=== PATIENT | male | born 1985 | race Caucasian/White ===

== ENCOUNTER 2020-02-15 20:46 | Emergency (ER) | payer BC, OTHER, SELFPAY ==
[2020-02-15 20:47] VITALS: BP 145/89; PULSE 103; RESP 15; TEMP 36.7; O2SAT 98; BMI 22.7
[2020-02-15 20:53] VITALS: BP 139/93; PULSE 95; RESP 13; O2SAT 100
[2020-02-15] MEDS: 0.9% Normal Saline 1,000 ML 150 ML IV (21:05)
--- NOTE | 2020-02-15 21:12 | EKG12_ITS ---
Test Reason : CHEST TIGHTNESS Blood Pressure : / mmHG Vent. Rate : 099 BPM Atrial Rate : 099 BPM P-R Int : 164 ms QRS Dur : 092 ms QT Int : 340 ms P-R-T Axes : 075 069 054 degrees QTc Int : 436 ms Normal sinus rhythm Normal ECG Confirmed by NAHOMI WOLFE, JUNIOR ([id number]), primer expeditor and drier TORI YUN ([id number]) on 02/18/2020 11:02:47 AM Referred By: SENTHIL VELÁZQUEZ Confirmed By:JUNIOR COMER MD
--- NOTE | 2020-02-15 21:13 | ED.DCSUM_ITS ---
History of Present Illness Chief Complaint: Chest Pain Informant: Patient Onset: Today Current Severity: Mild Maximum Severity: Moderate Narrative: Patient reports chest tightness and syncope. He states for the past several days has had some abdominal pain that radiate down towards the left testicle. He been trying to drink more fluids to flush his kidneys. He was feeling better today and went on a long hike. After coming home he was sitting in visiting with a friend when he started to feel lightheaded. He felt slight chest tightness that he states felt very much on the surface of his chest. He got up to walk into the house and was in a cold sweat. He had a brief syncopal episode. He denies feeling palpitations. Currently he states he feels significantly improved but not quite back to normal. Past Medical History - Allergies and Home Meds Allergies/Adverse Reactions: Allergies No Known Allergies Allergy (Verified 02/15/20 20:53) Primary Care Physician: Saul Serna III, MD [Primary Care Provider] - Past Medical History: None Lives: Spouse/ Significant Other Smoking Status: Former smoker Review of Systems General: Denies: Chills, Fever Eyes: Denies: Visual changes - bilaterally ENT: Denies: Bilateral ear pain Cardiovascular: Reports: Chest pain. Denies: Palpitations Respiratory: Denies: Dyspnea, Cough Gastrointestinal: Reports: Abdominal pain. Denies: Nausea, Vomiting, Diarrhea Genitourinary: Denies: Dysuria Musculoskeletal: Denies: Extremity Pain Skin: Denies: Rash Neurological: Denies: Headache Hematologic: Denies: Easy bruising, Easy bleeding Allergy: Denies: Uticaria Physical Exam Vital Signs/Narrative: Vital Signs Temp Pulse Resp BP Pulse Ox 02/15/20 20:53 95 13 139/93 H 100 02/15/20 20:47 98.0 F 103 H 15 145/89 H 98 Inital Vital Signs reviewed: Yes General: Well nourished, Well developed Head: Normocephalic ENT: Moist mucous membranes Cardiovascular: Regular rate, Regular rhythm Respiratory: No distress, CTA bilaterally Abdomen: Soft, Nontender, Hypoactive bowel sounds Extremities: Nontender, No edema Skin: Normal color Neurological: Alert, Oriented x3 Psychological: Normal affect Diagnostic/Tx/Re-eval Impressions Chest X-Ray 02/15/20 21:19 IMPRESSION: Normal x-ray examination of the chest. Electronically Signed: Joy Bautista, at 21:45 EDT Tel , Service support , Abdomen/Pelvis CT 02/15/20 22:09 IMPRESSION: No acute intra-abdominal or pelvic disease. Individualized dose optimization techniques were used for this CT. at 2302 Reported and signed by: Eder Smith MD Electronically Signed: Eder Smith MD at 23:01 EDT Tel , Service support , 02/15/20 21:19 Chest 1 View (Portable) [RAD] Stat 02/15/20 22:09 Abdomen/Pelvis without Cont [CT] Stat Laboratory Results 02/15/20 02/15/20 02/15/20 21:10 21:10 21:10 WBC 9.9 RBC 5.17 Hgb 15.4 Hct 46.3 MCV 89.6 MCH 29.8 MCHC 33.3 RDW Std Deviation 39.8 RDW Coeff of Pat 12.1 Plt Count 293 MPV 10.9 Immature Gran % (Auto) 0.300 Neut % (Auto) 55.1 Lymph % (Auto) 33.4 [place] % (Auto) 9.4 Eos % (Auto) 1.1 Baso % (Auto) 0.7 Absolute Neuts (auto) 5.5 Absolute Lymphs (auto) 3.31 Nucleated RBC % 0 D-Dimer Quant (PE/DVT) <= 0.27 Sodium 140 Potassium 3.3 L Chloride 106 Carbon Dioxide 27.0 Anion Gap 7 BUN 13 Creatinine 0.96 Estim Creat Clear Calc 114.35 Est GFR (MDRD) Af Amer 115 Est GFR (MDRD) Non-Af 95 BUN/Creatinine Ratio 13.6 Glucose 149 H Calcium 9.0 Total Bilirubin 0.80 AST 10 L ALT 16 Alkaline Phosphatase 57 Troponin I < 0.015 Total Protein 7.7 Albumin 4.5 Globulin 3.2 Albumin/Globulin Ratio 1.4 Lipase 114 Urine Color Urine Clarity Urine pH Ur Specific [place] Urine Protein Urine Glucose (UA) Urine Ketones Urine Occult Blood Urine Nitrite Urine Bilirubin Urine Urobilinogen Ur Leukocyte Esterase Urine RBC Urine WBC Ur Squamous Epith Cells Urine Bacteria Urine Mucus 02/15/20 22:30 WBC RBC Hgb Hct MCV MCH MCHC RDW Std Deviation RDW Coeff of Pat Plt Count MPV Immature Gran % (Auto) Neut % (Auto) Lymph % (Auto) [place] % (Auto) Eos % (Auto) Baso % (Auto) Absolute Neuts (auto) Absolute Lymphs (auto) Nucleated RBC % D-Dimer Quant (PE/DVT) Sodium Potassium Chloride Carbon Dioxide Anion Gap BUN Creatinine Estim Creat Clear Calc Est GFR (MDRD) Af Amer Est GFR (MDRD) Non-Af BUN/Creatinine Ratio Glucose Calcium Total Bilirubin AST ALT Alkaline Phosphatase Troponin I Total Protein Albumin Globulin Albumin/Globulin Ratio Lipase Urine Color Yellow Urine Clarity Sl. Cloudy Urine pH 5.0 Ur Specific [place] 1.025 Urine Protein 15 H Urine Glucose (UA) Normal Urine Ketones 15 H Urine Occult Blood Negative Urine Nitrite Negative Urine Bilirubin Negative Urine Urobilinogen 1 H Ur Leukocyte Esterase 25 H Urine RBC 0 SEEN Urine WBC 0-5 SEEN Ur Squamous Epith Cells 0-5 SEEN Urine Bacteria 1+ Urine Mucus 1+ - EKG Initial EKG Interpretation: Sinus Rhythm - Sinus at 99 with no acute ischemia. - Medical Decision Making Patient was given IV fluids here. On repeat evaluation he is resting comfor tably. Test results are discussed with he and at bedside. Patient is reassured get frustrated that we do not have a definitive cause for his abdominal pain. I did advise him that I think his syncopal episode was vasovagal in nature as he describes feeling cold clammy and sweaty. He thinks it is secondary to having the abdominal pain. Abdominal labs, urine, and CT flank are unremarkable at this time. I advised him to continue to monitor his symptoms and follow bland diet. If his symptoms persist he is to follow-up with his family doctor late this coming week. If he develops a fever or worsening symptoms he is to return to the ER for further evaluation. ED Disposition - Plan for ED Patient: Disposition: Home or Assisted Living Diagnosis: Abdominal pain, Vasovagal syncope Instructions: ED VAGAL SYNCOPE, ED Unknown Causes of Abdominal Pain Male Referrals: Saul Serna III, MD [Primary Care Provider] - 3-5 Days if not improving
--- NOTE | 2020-02-15 21:19 | RAD_ITS ---
STUDY: X-RAY CHEST REASON FOR EXAM: Male, 34 years old. Chest evaluation TECHNIQUE: Frontal view of the chest COMPARISON: None. FINDINGS: The lungs are clear and expanded. There is no demonstrated pleural abnormality. Normal size heart. Normal mediastinum and olimpia. Normal visualized pulmonary arteries. Normal visualized aortic arch and descending thoracic aorta. Normal visualized thoracic spine. Normal visualized ribs, clavicles, and shoulders. There is no demonstrated abnormality of the visualized soft tissue structures of the upper abdomen. RAD/Chest 1 View (Portable) IMPRESSION: Normal x-ray examination of the chest. Electronically Signed: Joy Bautista, at 21:45 EDT Tel , Service support ,
[2020-02-15 21:27] LABS: Absolute Lymphocyte Count 3.31 X10^3/uL (0.83-4.51); Absolute Neutrophil Count 5.5 X10^3/uL (2.0-7.7); Basophil# 0.07 X10^3/uL; Basophil% 0.7 % (0-1); Eosinophil# 0.11 X10^3/uL; Eosinophils% 1.1 % (0-5); Hematocrit 46.3 % (40-54); Hemoglobin 15.4 g/dL (13.0-16.5); Lymphocyte # 3.31 X10^3/ul (4.0); Lymphocyte % 33.4 % (19-41); Mean Corp Hgb Conc 33.3 g/dL (32-36); Mean Corpuscular Hgb 29.8 pg (27.0-32.0); Mean Corpuscular Volume 89.6 fL (80-94); Mean Platelet Vol. 10.9 fl (6.2-12.0); Monocyte# 0.93 X10^3/uL; Monocyte% 9.4 % (0-10); NRBC Flagged by Analyzer 0 % (0-5); Neutrophil # 5.47 X10^3/uL (2.7-7.7); Neutrophil % 55.1 % (47-70); Platelet Count 293 K/mm3 (150-450); RBC Distribution Width CV 12.1 % (11.6-14.6); RBC Distribution Width SD 39.8 fl (35.1-43.9); Red Blood Count 5.17 M/mm3 (4.6-6.2); White Blood Count 9.9 K/mm3 (4.4-11.0)
[2020-02-15 21:45] LABS: D-Dimer Quantitative (DVT/PE) <= 0.27 FEU/ug/m (0.27-0.49)
[2020-02-15 21:51] LABS: ALB/GLOB Ratio 1.4 RATIO (0.9-2.4); AST(SGOT) 10 U/L (15-37); Alanine Aminotransfer ALT/SGPT 16 U/L (16-61); Albumin, Serum 4.5 g/dL (3.2-5.0); Alkaline Phosphatase 57 U/L (45-117); Anion Gap 7 (5-15); BUN 13 mg/dL (7-18); BUN/Creat Ratio 13.6 RATIO (10-20); Chloride 106 mmol/L (98-107); Creatinine, Serum 0.96 mg/dL (0.70-1.30); EST Glomerular Filtration Rate 95 mL/min (>60); Est Glom Filt Rate - Afr Amer 115 mL/min (>60); Estimated Creatinine Clearance 114.35 ml/min; Globulin 3.2 g/dL (2.2-4.2); Glucose 149 mg/dL (74-106); Lipase 114 U/L (73-393); Potassium 3.3 mmol/L (3.5-5.1); Protein, Total 7.7 g/dL (6.4-8.2); Sodium Level 140 mmol/L (136-145)
[2020-02-15 21:53] VITALS: BP 128/76; PULSE 86; RESP 16; O2SAT 99
--- NOTE | 2020-02-15 22:09 | CT_ITS ---
HISTORY: HIKED TODAY AND NOW C/O CHEST TIGHTNESS, SYNCOPE ONCE, DIAPHORESIS, LLQ ABD PAIN RADIATING TO GROIN SINCE MONDAY TECHNIQUE: Helically acquired images were obtained of the abdomen and pelvis without oral or IV contrast. A radiation dose optimization technique was used for this scan. COMPARISON: None FINDINGS: # of images incl. paperwork: [id number] LUNG BASES: Minimal pectus excavatum. Lung bases are clear. Heart is not enlarged. CT abdomen: Bones are unremarkable. The gallbladder remains. Liver, spleen, pancreas, and adrenal glands are normal. The kidneys are normal. The aorta is normal. There is no intra-or extrahepatic biliary ductal dilatation. CT pelvis: No ascites is present. The prostate gland is not enlarged but does contain some benign-appearing dystrophic calcifications. The appendix is normal. Series 2 image 119 Decompressed. The bladder is normal. Bowel gas pattern is normal. CT/Abdomen/Pelvis without Cont IMPRESSION: No acute intra-abdominal or pelvic disease. Individualized dose optimization techniques were used for this CT. at 2302 Reported and signed by: Eder Smith MD Electronically Signed: Eder Smith MD at 23:01 EDT Tel , Service support ,
[2020-02-15 22:38] LABS: Red Blood Cells-Urine 0 SEEN /hpf (0-5)
[2020-02-15 22:41] LABS: Color, Urine Yellow (Yellow); Glucose, Dipstick Normal (Normal); Ketone-Dipstick 15 mg/dl (Negative); Leukocyte Esterase-Dipstick 25 /ul (Negative); Nitrite-Dipstick Negative (Negative); Occult Blood-Urine Negative /ul (Negative); Protein-Dipstick 15 mg/dl (Negative); Specific Gravity, Urine 1.025 (1.002-1.030); Urine Bilirubin Dipstick Negative (Negative); Urine Clarity Sl. Cloudy (Clear); Urine Urobilinogen 1 mg/dl (Normal)
[2020-02-15 22:49] LABS: Bacteria 1+ /hpf (None Seen); Mucous, Urine 1+ /hpf (<or=2+); Squamous Epithelial Cells - UA 0-5 SEEN /hpf (0-5); White Blood Cells 0-5 SEEN /hpf (0-5)
[2020-02-15 22:53] VITALS: BP 116/78; PULSE 82; RESP 16; O2SAT 98
[2020-02-15 23:49] VITALS: BP 118/77; PULSE 82; RESP 16; O2SAT 100
== END 2020-02-15 23:49 | disposition home or self-care (01) ==
PROVIDERS: Emergency Provider Emergency Medicine; PCP Family Medicine
DX: R10.9 Unspecified abdominal pain (principal); R55 Syncope and collapse; R07.89 Other chest pain; Z87.891 Personal history of nicotine dependence
CPT/HCPCS: 71045; 74176; 80053; 81001; 83690; 84484; 85025; 85379; 93005; 96360; 96361; 99284; J7030; A4216

== ENCOUNTER 2023-09-30 21:51 | Emergency (ER) | payer OTHER, SELFPAY ==
[2023-09-30 21:51] VITALS: BP 134/92; PULSE 140; RESP 20; TEMP 36.8; O2SAT 100
--- NOTE | 2023-09-30 22:10 | EX.ED.DYSGE1 ---
HPI History of Present Illness Chief Complaint: Palpitations Informant: patient Onset/Context/Timing Onset: Today Narrative Narrative: Patient presents secondary to sensation of racing heart. He states he was sitting in bed talking to his when he got an alert on his watch that his heart rate was fast is been bouncing between 120 and 140. He denies chest pain. He states he did have more caffeine than normal today and he thinks that is what caused his symptoms. [facility] Medical History (Updated 09/30/23 @ 22:[address] Naa Johnston MD) ADHD Home Medications NK 02/15/20 [History Last Taken Unknown] Allergy/AdvReac Type Severity Reaction Status Date / Time No Known Allergies Allergy Verified 09/30/23 21:53 Surgical History (Updated 09/30/23 @ 22:[address] Naa Johnston MD) S/P ACL repair Social History Smoking Status: Former smoker ROS ROS ED Constitutional Constitutional ED: Denies chills or fever(s) Eyes Eyes: Denies discharge from eye(s) ENT ENT ED: Denies discharge from eye(s), rhinorrhea or sore throat Cardiovascular Cardiovascular: Reports palpitations and racing heartbeat; Denies chest pain Respiratory/Chest Respiratory/Chest: Denies cough or dyspnea Gastrointestinal Gastrointestinal: Denies abdominal pain, nausea or vomiting Musculoskeletal Musculoskeletal: Denies back pain or extremity pain Integumentary Denies Abrasions or rash Neurologic Neurologic: Denies headache(s) or weakness Psychiatric Psychiatric: Denies anxiety or depression Allergic/Immunologic Allergic/Immunologic ED: Denies lip swelling or urticaria EXAM Physical Exam Const Vital Signs: 09/30/23 21:51 Temperature 98.2 F Temperature Source Temporal Pulse Rate 140 H Respiratory Rate 20 H Blood Pressure 134/92 H Blood Pressure Mean 106 Pulse Ox 100 Oxygen Delivery Method Room Air Positive well nourished and well developed General Appearance ED: well developed HEENT Reports moist mucous membranes Eyes EOMs intact bilaterally Chest Wall inspection of chest normal and palpation of chest normal Resp normal respiratory effort and clear to auscultation bilaterally Cardio Rate: tachycardic GI non-tender Palpation: soft Extremity normal to inspection Neuro oriented x3 and no sensory deficits noted Motor Exam: strength 5/5 throughout Psych mental status grossly normal Skin no rashes or lesions noted MDM MDM MDM Narrative Medical decision making narrative: The time my exam patient is placed on equipment monitor phototypesetting. His heart rate is fluctuating between 116 and 125 during our interview. Patient states he did take his Adderall this morning along with 2 cups of coffee. He had 2 rum and Cokes at dinner tonight. He states this is more caffeine that he normally consumes in a day and he thinks that is the cause of his racing heart. At this point he states he feels better than he did when symptoms started and he really does not want further workup completed. EKG was obtained prior to my arrival and reveals sinus tachycardia with a rate of 120. No acute ischemia. Patient was advised that at this time I cannot rule out electrolyte abnormality, thyroid abnormality, other significant problems causing his tachycardia. He understands and does not wish to have further workup. He was advised that he can return at any time should he change his mind. Discharge Plan Triage Chief Complaint: Palpitations ED Provider: Naa Johnston Dx/Rx/DC Orders Clinical Impression: Tachycardia Instructions: ED Palpitations Prescriptions: No Action NK Primary Care Provider: Doug Laguerre Referrals: Doug Laguerre MD [Primary Care Provider] - 3-5 Days if not improving Disposition Disposition: Home, Self Care
--- NOTE | 2023-09-30 22:14 | EKG12_ITS ---
Test Reason : PALPITATIONS Blood Pressure : / mmHG Vent. Rate : 120 BPM Atrial Rate : 120 BPM P-R Int : 162 ms QRS Dur : 088 ms QT Int : 314 ms P-R-T Axes : 069 062 047 degrees QTc Int : 443 ms Sinus tachycardia Possible Left atrial enlargement Borderline ECG Confirmed by Braydon Jung ([id number]), editor sound TORI YUN ([id number]) on 10/03/2023 9:20:35 AM Referred By: IDA Confirmed By:Braydon Jung
[2023-09-30 22:16] VITALS: PULSE 117; RESP 16
[2023-09-30 22:18] VITALS: PULSE 111; RESP 15
--- OUTSIDE RECORDS SUMMARY | 2023-09-30 22:23 | XMS RPT_ITS | CCD ---
Author Name Unknown Address [address] [place] [address] Organization [facility] Care Team Providers Care Ranch Helper Name Role Phone Unavailable Primary Care Provider Sheba Peres MD, Doug Campo Primary Care Provider [phone] FARROW, LUTUL D Admitting Unavailable FARROW, LUTUL D Attending Unavailable PERES, DOUG Campo Primary Care Unavailable GOLIAS, MAURICE Attending Unavailable FARROW, LUTUL D Referring Unavailable PERES, DOUG Campo Primary Care Unavailable PERES, DOUG Campo Primary Care Unavailable GOLIAS, MAURICE Attending Unavailable FARROW, LUTUL D Referring Unavailable PERES, DOUG Campo Primary Care Unavailable GOLIAS, MAURICE Attending Unavailable FARROW, LUTUL D Referring Unavailable AYLA GUAMAN Attending Unavailjada PERES, DOUG Campo Primary Care Unavailable PERES, DOUG Campo Primary Care Unavailable PERES, DOUG Campo Attending Unavailable PERES, DOUG Campo Primary Care Unavailable GOLIAS, MAURICE Attending Unavailable FARROW, LUTUL D Referring Unavailable PERES, DOUG Campo Primary Care Unavailable FARROW, LUTUL D Referring Unavailable PERES, DOUG Campo Primary Care Unavailable GURU DIA Attending Unavailable PERES, DOUG Campo Primary Care Unavailable FARROW, LUTUL D Attending Unavailable PERES, DOUG Campo Primary Care Unavailable GOLIAS, MAURICE Attending Unavailable FARROW, LUTUL D Referring Unavailable GOLIAS, MAURICE Attending Unavailable FARROW, LUTUL D Referring Unavailable PERES, DOUG Campo Primary Care Unavailable PERES, DOUG Campo Primary Care Unavailable GOLIAS, MAURICE Attending Unavailable FARROW, LUTUL D Referring Unavailable PERES, DOUG Campo Primary Care Unavailable GOLIAS, MAURICE Attending Unavailable FARROW, LUTUL D Referring Unavailable PERES, DOUG Campo Attending Unavailable PERES, MURIEL Primary Care Unavailable PERES, MURIEL Primary Care Unavailable FARROW, LUTUL D Referring Unavailable FARROW, LUTUL D Attending Unavailable PERES, MURIEL Primary Care Unavailable PERES, MURIEL Attending Unavailable PERES, MURIEL Primary Care Unavailable ANGELICA KHAN Referring Unavailable PERES, MURIEL Primary Care Unavailable FARROW, LUTUL D Referring Unavailable PERES, MURIEL Primary Care Unavailable DIAN ALBA Attending Unavailable FARROW, LUTUL D Referring Unavailable FARROW, LUTUL D Referring Unavailable FARROW, LUTUL D Attending Unavailable PERES, DOUG Campo Primary Care Unavailable PERES, DOUG Campo Primary Care Unavailable RENITA GONSALES Referring Unavailable PERES, DOUG Campo Primary Care Unavailable RENITA GONSALES Attending Unavailable PERES, DOUG Campo Primary Care Unavailable FARROW, LUTUL D Referring Unavailable PERES, DOUG Campo Primary Care Unavailable MAGDALENO NICE Attending Unavailable FARROW, LUTUL D Referring Unavailable PERES, DOUG Campo Primary Care Unavailable FARROW, LUTUL D Referring Unavailable PERES, DOUG Campo Primary Care Unavailable GOLIASMAURICE Attending Unavailable FARROW, LUTUL D Referring Unavailable GOLIASMAURICE Attending Unavailable FARROW, LUTUL D Referring Unavailable PERES, DOUG Campo Primary Care Unavailable GOLIAS, MAURICE Attending Unavailable FARROW, LUTUL D Referring Unavailable PERES, DOUG Campo Primary Care Unavailable GOLIAS, MAURICE Attending Unavailable FARROW, LUTUL D Referring Unavailable PERES, DOUG Campo Primary Care Unavailable FARROW, LUTUL D Referring Unavailable PERES, DOUG Campo Primary Care Unavailable GOLIAS, MAURICE Attending Unavailable PERES, DOUG Campo Primary Care Unavailable FARROW, LUTUL D Referring Unavailable PERES, DOUG Campo Primary Care Unavailable GOLIAS, MAURICE Attending Unavailable FARROW, LUTUL D Referring Unavailable PERES, MURIEL Primary Care Unavailable GOLIAS, MAURICE Attending Unavailable FARROW, LUTUL D Referring Unavailable GOLIAS, MAURICE Attending Unavailable FARROW, LUTUL D Referring Unavailable PERES, MURIEL Primary Care Unavailable GOLIAS, MAURICE Attending Unavailable FARROW, LUTUL D Referring Unavailable PERES, MURIEL Primary Care Unavailable FARROW, LUTUL D Referring Unavailable GOLIAS, MAURICE Attending Unavailable PERES, MURIEL Primary Care Unavailable GOLIAS, MAURICE Attending Unavailable FARROW, LUTUL D Referring Unavailable PERES, MURIEL Primary Care Unavailable GOLIAS, MAURICE Attending Unavailable FARROW, LUTUL D Referring Unavailable PERES, MURIEL Primary Care Unavailable PERES, MURIEL Primary Care Unavailable GOLIAS, MAURICE Attending Unavailable FARROW, LUTUL D Referring Unavailable PERES, MURIEL Primary Care Unavailable GOLIAS, MAURICE Attending Unavailable FARROW, LUTUL D Referring Unavailable PERES, MURIEL Primary Care Unavailable GOLIAS, MAURICE Attending Unavailable FARROW, LUTUL D Referring Unavailable PERES, MURIEL Primary Care Unavailable GOLIAS, MAURICE Attending Unavailable FARROW, LUTUL D Referring Unavailable PERES, MURIEL Primary Care Unavailable GOLIAS, MAURICE Attending Unavailable FARROW, LUTUL D Referring Unavailable PERES, MURIEL Primary Care Unavailable GOLIAS, MAURICE Attending Unavailable FARROW, LUTUL D Referring Unavailable TESTRAKE, DIAN Attending Unavailable PERES, MURIEL Primary Care Unavailable TESTRAKE, DIAN Referring Unavailable PERES, MURIEL Primary Care Unavailable FARROW, LUTUL D Attending Unavailable PERES, MURIEL Primary Care Unavailable PERES, MURIEL Primary Care Unavailable FARROW, LUTUL D Referring Unavailable FARROW, LUTUL D Attending Unavailable FARROW, LUTUL D Referring Unavailable FARROW, LUTUL D Attending Unavailable PERES, MURIEL Primary Care Unavailable KRYSTA V, GURU Referring Unavailable KRYSTA V, GURU Referring Unavailable GOLIAS, MAURICE Attending Unavailable FARROW, LUTUL D Referring Unavailable PERES, MURIEL Primary Care Unavailable GOLIAS, MAURICE Attending Unavailable FARROW, LUTUL D Referring Unavailable PERES, MURIEL Primary Care Unavailable FARROW, LUTUL D Referring Unavailable GOLIAS, MAURICE Attending Unavailable PERES, MURIEL Primary Care Unavailable GOLIAS, MAURICE Attending Unavailable FARROW, LUTUL D Referring Unavailable PERES, MURIEL Primary Care Unavailable Allergies Allergy Classification Reported Allergen(s) Allergy Type Date of Onset Reaction(s) Facility (20 sources) Seasonal allergy; Translations: [SEASONAL ALLERGIES] Propensity to adverse reactions 1 Other: See Comments [facility] Work Phone: Medications Current Medications Medication Drug Class(es) Dates Sig (Normalized) Sig (Original) amphetamine aspartate 3.75 mg / amphetamine sulfate 3.75 mg / dextroamphetamine saccharate 3.75 mg / dextroamphetamine sulfate 3.75 mg oral tablet (10 sources) Central Nervous System Stimulant Start: 07-19-2023 End: 08-18-2023 take 1 tablet by mouth once daily amphetamine-dextro amphetamine (ADDERALL) 15 mg tablet Indications: ADHD (attention deficit hyperactivity disorder), combined type Take 1 tablet by mouth once daily for 30 days. 30 tablet 0 07/19/2023 08/18/2023 Active Completed/Discontinued Medications Medication Drug Class(es) Dates Sig (Normalized) Sig (Original) acetaminophen 325 mg / oxyCODONE hydrochloride 5 mg oral tablet (20 sources) Opioid Agonist Start: 12-29-2022 take 1 tablet by mouth every six hours as needed for pain oxyCODONE-acetaminop hen (PERCOCET) 5-325 mg tablet Indications: S/P ACL reconstruction Take 1 tablet by mouth every 6 hours as needed for pain (Take lowest effective dose. Do not take with alcohol or sleep aids.). 16 tablet 0 12/29/2022 Active Problems Active Problems Problem Classification Problem Date Documented Date Episodic/Chronic Acquired foot deformities (1 source) Acquired left hallux valgus; Translations: [Hallux valgus (acquired), left foot] 07-17-2023 Chronic Attention-deficit, conduct, and disruptive behavior disorders (7 sources) Attention deficit hyperactivity disorder, combined type; Translations: [Attention-deficit hyperactivity disorder, combined type] Onset: 06-21-2023 05-19-2023 Chronic Immunizations and screening for infectious disease (1 source) Needs influenza immunization; Translations: [Encounter for immunization] 05-19-2023 Episodic Miscellaneous mental health disorders (20 sources) Bruxism (teeth grinding); Translations: [Other somatoform disorders] Onset: 07-21-2015 07-21-2015 Chronic Mood disorders (1 source) Mood disorder due to a general medical condition; Translations: [Mood disorder due to known physiological condition, unspecified] 05-19-2023 Episodic Other and unspecified benign neoplasm (1 source) Neuroma; Translations: [Benign neoplasm of peripheral nerves and autonomic nervous system, unspecified] 07-17-2023 Episodic Other connective tissue disease (1 source) Pain in hallux; Translations: [Pain in right toe(s)] Episodic Other connective tissue disease (1 source) Pain of toe of left foot; Translations: [Pain in left toe(s)] 07-10-2023 Episodic Other connective tissue disease (1 source) Pain in left toe(s); Translations: [Pain in toe of left foot] Onset: 07-17-2023 Episodic Other inflammatory condition of skin (20 sources) Psoriasis; Translations: [Psoriasis, unspecified] Onset: 12-15-2022 12-15-2022 Chronic Other inflammatory condition of skin (1 source) Seborrheic psoriasis; Translations: [Other psoriasis] 06-29-2023 Chronic Other screening for suspected conditions (not mental disorders or infectious disease) (1 source) Encounter for screening for lipoid disorders; Translations: [Screening for lipid disorders] Onset: 05-19-2023 Episodic Other upper respiratory disease (20 sources) Allergic rhinitis; Translations: [Allergic rhinitis, unspecified] Onset: 01-09-2013 01-09-2013 Chronic Residual codes; unclassified (1 source) Other specified postprocedural states; Translations: [S/P ACL reconstruction] Onset: 12-29-2022 Episodic Past or Other Problems Problem Classification Problem Date Documented Da te Episodic/Chronic Other inflammatory condition of skin (20 sources) Seborrheic dermatitis; Translations: [Seborrheic dermatitis, unspecified] Onset: 02-15-2018 02-15-2018 Episodic Other non-traumatic joint disorders (20 sources) Pain in right knee; Translations: [Pain in joint, lower leg] Onset: 11-21-2022 Episodic Other non-traumatic joint disorders (1 source) Effusion, right knee; Translations: [Pain and swelling of right knee] Onset: 11-21-2022 Episodic Sprains and strains (20 sources) Rupture of anterior cruciate ligament of right knee; Translations: [Sprain of anterior cruciate ligament of right knee, initial encounter] Onset: 01-02-2023 Episodic Results Test Name Value Interpretation Reference Range Facil ity Vital Signs Date Time Vital Sign Value Performing Clinician Faci lity 06-20-2023 11:42-0400 Body weight 75.75 kg Doug Peres MD Work Phone: [facility] 06-20-2023 11:42-0400 Diastolic blood pressure 72 mm[Hg] Doug Peres MD Work Phone: [facility] 06-20-2023 11:42-0400 Heart rate 80 /min Doug Peres MD Work Phone: [facility] 06-20-2023 11:42-0400 Respiratory rate 18 /min Doug Peres MD Work Phone: [facility] 06-20-2023 11:42-0400 Systolic blood pressure 106 mm[Hg] Doug Peres MD Work Phone: [facility] 05-19-2023 08:31-0400 Body weight 76.2 kg Doug Peres MD Work Phone: [facility] 05-19-2023 08:31-0400 Diastolic blood pressure 72 mm[Hg] Doug Peres MD Work Phone: [facility] 05-19-2023 08:31-0400 Heart rate 81 /min Doug Peres MD Work Phone: [facility] 05-19-2023 08:31-0400 Respiratory rate 18 /min Doug Peres MD Work Phone: [facility] 05-19-2023 08:31-0400 SaO2% (BldA) [Mass fraction] 98 % Doug Peres MD Work Phone: [facility] 05-19-2023 08:31-0400 Systolic blood pressure 108 mm[Hg] Doug Peres MD Work Phone: [facility] 01-02-2023 08:00-0400 Diastolic blood pressure 84 mm[Hg] Maurice Golias PT Work Phone: [facility] 01-02-2023 08:00-0400 Systolic blood pressure 126 mm[Hg] Maurice Golias PT Work Phone: [facility] 01-02-2022 08:18-0400 Body temperature 96.69 [degF] Maximo Dela Cruz ICE RINK ATTENDANT.SALESPERSON [employer] Work Phone: [facility] 01-02-2022 08:18-0400 Body weight 77.38 kg Maximo Dela Cruz ICE RINK ATTENDANT.SALESPERSON [employer] Work Phone: [facility] 01-02-2022 08:18-0400 Diastolic blood pressure 72 mm[Hg] Maximo Dela Cruz ICE RINK ATTENDANT.SALESPERSON [employer] Work Phone: [facility] 01-02-2022 08:18-0400 Heart rate 79 /min Maximo Dela Cruz ICE RINK ATTENDANT.SALESPERSON [employer] Work Phone: [facility] 01-02-2022 08:18-0400 Respiratory rate 21 /min Maximo Dela Cruz ICE RINK ATTENDANT.SALESPERSON [employer] Work Phone: [facility] 01-02-2022 08:18-0400 SaO2% (BldA) [Mass fraction] 98 % Maximo Dela Cruz ICE RINK ATTENDANT.SALESPERSON [employer] Work Phone: [facility] 01-02-2022 08:18-0400 Systolic blood pressure 104 mm[Hg] Maximo Dela Cruz ICE RINK ATTENDANT.SALESPERSON [employer] Work Phone: [facility] Encounters Encounter Date Encounter Type Care Provider Facility Start: 08-11-2023 End: 08-11-2023 ambulatory DOUG PERES Facility:[facility] Start: 07-21-2023 End: 07-21-2023 ambulatory Maurice Pope PT Work Phone: [facility] Physical Therapy Procedures Date Procedure Procedure Detail Performing Clinician Start: 05-19-2023 INFLUENZA VACCINE, AGE 6 MO - 64 YR, QUADRIVALENT (AFLURIA, FLULAVAL, FLUZONE) Doug Peres MD Work Phone: Start: 05-19-2023 Lipid 1996 panel - Serum or Plasma Doug Peres MD Work Phone: Start: 09-09-2021 Adult depression screening assessment Doug Peres MD Work Phone: Start: 04-13-2016 Lipid 1996 panel - Serum or Plasma Maurice Golias PT Work Phone: History of operative procedure on knee S/P ACL reconstruction Dian Alba PA-C Work Phone: History of operative procedure on knee S/P ACL reconstruction Dian Alba PA-C Work Phone: History of operative procedure on knee S/P ACL reconstruction Jim Reed MD Work Phone: History of operative procedure on knee S/P ACL reconstruction Jim Reed MD Work Phone: History of operative procedure on knee S/P ACL reconstruction Jim Reed MD Work Phone: Plan of Treatment Date Care Activity Detail Author Start: 07-03-2030 Urine microalbumin profile [facility] Start: 05-19-2028 Lipid 1996 panel - S laney or Plasma Lipid Screening [facility] Start: 06-20-2024 Covid-19 Vaccine ( season) Covid-19 Vaccine () [facility] Immunizations Immunization Date Immunization Notes Care Provider Fa cili 05-19-2023 influenza, injectabl e, quadrivalent, contains preservative Doug Peres MD Work Phone: [facility] 07-22-2022 influenza virus vaccine, unspecified formulation Maurice Golias PT Work Phone: [facility] 07-03-2020 tetanus toxoid, redu bhanu diphtheria toxoid, and acellular pertussis vaccine, adsorbed Doug Peres MD Work Phone: [facility] 12-30-2015 hepatitis A vaccine, adult dosage Doug Peres MD Work Phone: [facility] 12-30-2015 hepatitis B immune globulin Doug Peres MD Work Phone: [facility] 12-30-2015 hepatitis B vaccine, adult dosage Maurice Golias PT Work Phone: [facility] Work Phone: 06-17-2015 hepatitis B immune globulin Doug Peres MD Work Phone: [facility] 06-17-2015 hepatitis B vaccine, adult dosage Maurice Golias PT Work Phone: [facility] Work Phone: 06-12-2015 influenza, injectabl e, quadrivalent, contains preservative Doug Peres MD Work Phone: [facility] 05-20-2015 hepatitis A vaccine, adult dosage Doug Peres MD Work Phone: [facility] 05-20-2015 hepatitis B immune globulin Doug Peres MD Work Phone: [facility] 05-20-2015 hepatitis B vaccine, adult dosage Maurice Golias PT Work Phone: [facility] Work Phone: 05-20-2015 typhoid vaccine, unspecified formulation Doug Peres MD Work Phone: [facility] 08-28-2014 influenza, seasonal, injectable Doug Peres MD Work Phone: [facility] 03-25-2009 diphtheria and tetan us toxoids, adsorbed for pediatric use Doug Peres MD Work Phone: [facility] Payers Date Payer Category Payer Unknown MMO MMO [employer] [id number] 2020-Present [phone] [address] [place] [address] PPO [id number] 2020 Unknown MMO MMO [employer] P[employer] [id number] 2020-Present [phone] [address] [place] [address] PPO [id number] 2020 Unknown [id number] Social History Date Type Detail Facility Start: 02-01-2011 End: 12-14-2022 Tobacco smoking status PRIS Never smoked tobacco [facility] Start: 02-01-2011 End: 12-14-2022 Tobacco use and exposure Smokeless tobacco non-user [facility] Start: 09-09-2021 End: 07-18-2023 Alcohol intake Current drinker of alcohol (finding) [facility] Start: 09-09-2021 End: 12-21-2022 Alcohol intake [facility] Start: 09-09-2021 End: 11-21-2022 History SDOH Alcohol Frequency 4 [facility] Start: 09-09-2021 End: 11-21-2022 History SDOH Alcohol Std Drinks 2 [facility] Start: 09-09-2021 End: 11-21-2022 History SDOH Alcohol Binge 1 [facility] Start: 09-10-2019 End: 11-21-2022 History SDOH Social Connections Meetings 3 [facility] Start: 09-10-2019 History SDOH Social Connections Living 8 [facility] Start: 09-09-2021 History SDOH Physical Activity DPW 0 [facility] Start: 09-10-2019 End: 11-21-2022 History SDOH Financial 5 [facility] Start: 09-10-2019 Education 17 [facility] Start: 1985 Sex Assigned At Male [facility] Start: 12-23-2021 End: 01-02-2022 Exposure to SARS-CoV-2 (event) Not sure [facility] Start: 11-21-2022 History SDOH Social Connections [facility] 98 [facility] Start: 12-15-2022 End: 06-29-2023 Alcohol intake Ex-drinker (finding) [facility] Start: 12-15-2022 Alcohol Comment 2-3 drinks 2-3 x / wk [facility] Start: 11-21-2022 End: 12-21-2022 Social connection and isolation panel [facility] How often do you att end episcopal or rastafarian services? Patient refused [facility] Do you belong to any clubs or organizations such as episcopal groups, unions, fraternal or athletic groups, or school groups? Yes [facility] Are you now , , , , never or living with a partner? [facility] How often to you hav e a drink containing alcohol? 2-3 time sa week [facility] How many standard dr inks containing alcohol do you have on a typical day? 1 or 2 [facility] How often do you hav e 6 or more drinks on 1 occasion? Never [facility] Do you feel stress - tense, restless, nervous, or anxious, or unable to sleep at night because your mind is troubled all the time - these days [OSQ] Only a little [facility] (I/We) worried wheth er (my/our) food would run out before (I/we) got money to buy more. Never true [facility] In the past 12 month s, was there a time when you were not able to pay the mortgage or rent on time? No [facility] Start: 09-03-2019 Gender identity Identifies as male gender (finding) [facility] Start: 09-03-2019 Sexual orientation Heterosexual (finding) [facility] How many standard dr inks containing alcohol do you have on a typical day? 3 or 4 [facility] Work Phone: Medical Equipment Procedure Code Equipment Code Equipment Origin al Text Equipment Identifier Dates Ultrabutton Adjustable Fixation Device [id number] Start: 12-29-2022 Intrafix Screw Biocryl [id number] Start: 12-29-2022 Clinical Notes 09-26-2016 to 08-11-2023 Maurice Pope, PT - 07/21/2023 4:23 PM Stacy Theodore LPN - 07/17/2023 9:51 AM Dian Pinon - 07/17/2023 9:37 AM Minerva Keita RN - 07/17/2023 9:24 AM ESTPatient Instructions Note Date & Type Note Facility 08-11-2023 Note HNO ID: [id number] Author: Doug Peres MD Service: ? Author Type: Physician Type: Progress Notes Filed: 08/11/2023 12:54 PM Note Text: This note was created using [employer]. Subjective Terry Smith is a 37 year old male. He was doing better on this current stimulant therapy, and he felt the balance of efficacy versus side effect was good now. We agreed to maintain this dose. Review of Systems Constitutional: Negative. Psychiatric/Behavioral: Negative. ACTIVE PROBLEM LIST Allergic Rhinitis Bruxism Psoriasis Rupture of Anterior Cruciate Ligament of Right Knee Adhd (Attention Deficit Hyperactivity Disorder), Combined Type PAST SURGICAL HISTORY Procedure Laterality Date KNEE ARTHROSCOPY/SURGERY Right 12/29/2022 ACL reconstruction with quintuple stranded hamstring autograft; partial lateral meniscectomy PAST SURGICAL HISTORY OF 2003 Extraction of wisdom teeth PAST SURGICAL HISTORY OF 2011 Right maxillary sinus sx Social History Tobacco Use Smoking status: Never Smokeless tobacco: Never Vaping Use Vaping Use: Never used Substance Use Topics Alcohol use: Yes Comment: 2-3 drinks 2-3 x / wk Drug use: Never Current Outpatient Medications Medication Sig calcipotriene (DOVONEX) 0.005 % cream Apply to affected area two times a day. betamethasone valerate 0.1 % cream Apply to affected area two times a day as needed (for psoriasis in the groin and ears). betamethasone dipropionate (DIPROSONE) 0.05 % cream Apply to affected area two times a day as needed (for psoriasis on the body and feet.). MULTIVITAMIN ORAL Take by mouth. [START ON 10/17/2023] amphetamine-dextroamphetamine (ADDERALL) 15 mg tablet Take 1 tablet by mouth once daily for 30 days. Do not start before October 17, 2023. [START ON 09/17/2023] amphetamine-dextroamphetamine (ADDERALL) 15 mg tablet Take 1 tablet by mouth once daily for 30 days. Do not start before September 17, 2023. [START ON 08/18/2023] amphetamine-dextroamphetamine (ADDERALL) 15 mg tablet Take 1 tablet by mouth once daily for 30 days. Do not start before August 18, 2023. No current facility-administered medications for this visit. Objective BP 106/60 Pulse 78 Temp 36.6 ?C (97.9 ?F) Resp 16 Wt 74.2 kg (163 lb 8 oz) SpO2 98% BMI 21.53 kg/m? Physical Exam Constitutional: Appearance: Normal appearance. Neurological: Mental Status: He is alert. Psychiatric: Mood and Affect: Mood normal. Behavior: Behavior normal. Thought Content: Thought content normal. Adult ADD 08/11/2023 Trouble wrapping up final details of projects 2 - Sometimes Difficulty getting order on tasks requiring organization 2 - Sometimes Have problems remembering appts/obligations 1 - Rarely Avoid/delay tasks requiring a lot of thought 3 - Often Fidget/squirm when sitting a long time 1 - Rarely Feel overly active/compelled to do things 2 - Sometimes Part A - Total 10 Careless Mistakes on boring/difficult projects 1 - Rarely Difficult keeping attention on boring/repetitive work 2 - Sometimes Difficulty concentrating on what people say 3 - Often Misplace/difficulty finding things at home/work 2 - Sometimes Distracted by activity/noise 3 - Often Leave your seat when expected to remain seated 0 - Never Feel restless/fidgety 1 - Rarely Difficulty unwinding/relaxing when you have time 2 - Sometimes Talk too much in social situations 2 - Sometimes Finish other's sentences 0 - Never Difficulty waiting your turn 1 - Rarely Interrupt others when they are busy 2 - Sometimes Part B - Total 19 Assessment and Plan 1. ADHD (attention deficit hyperactivity disorder), combined type - ICD9: 314.01, ICD10: F90.2 Controlled. Continue medication. Call for refill in 3 months. Follow up in 6 months. - DEXTROAMPHETAMINE-AMPHETAMINE 15 MG TABLET - DEXTROAMPHETAMINE-AMPHETAMINE 15 MG TABLET - DEXTROAMPHETAMINE-AMPHETAMINE 15 MG TABLET Doug Peres MD [facility] 07-21-2023 Note HNO ID: [id number] Author: Maurice Pope PT Service: ? Author Type: Physical Therapist Type: Progress Notes Filed: 07/21/2023 4:26 PM Note Text: Episode Visit Count: 34 Therapist That Will Accept/Oversee The Plan Of Care: Maurice Pope Start of Care Date: 01/02/23 Onset Date: 11/04/22 Plan of Care Certification Date: 12/16/22 Patient Identified by Name and Date of : Yes REHABILITATION AND SPORTS THERAPY PHYSICAL THERAPY PROGRESS REPORT PLAN OF CARE UPDATE: Assessment: Terry Smith demonstrates significant improvement in walking, stair negotiation, heavy exertion, running, jumping, and squatting . He has progressed toward goals. Patient continues to present with impairments in balance, coordination, overall function, strength, and running/ultimate frisbee that interfere with recreational activities, physical activities, running, jumping, squatting. Current prognosis is Excellent due to: current objective clinical presentation, good overall health status, positive past response to therapy, within-session changes, good support system/ coping skills. He will benefit from continued skilled therapy services to meet the updated goals for this plan of care as noted below. Updated: 6/7/23 and 02/23/23 and 03/21/23 and 04/21/23 and 05/19/23 and 06/16/23 and 07/21/23 Goals for Episode of Care: created on 01/02/23 through 04/24/23 Phase 1 to Phase 2 Criteria: Criterion for Progression: Complete 20 straight leg raises with no quadriceps lag. - MET Range of motion Full active knee extension (within 3 degrees) Active Flexion to 110 degrees. - MET Full quadriceps activation: full, without visual inhibition. - MET Normalized Gait. - MET Discontinuation of Crutch/Immobilizer devices. - Partially MET Phase 2 to Phase 3 Criteria: Criterion for Progression: Range of motion: full, equal to contralateral. - MET Stairs: 10-12 steps, ascent/descent in a reciprocal pattern with (6-8 height). - MET Double leg squat: 60-90 degree bend, equal weight bearing, proper mechanics. - MET Demonstrates functional strength and control with performing daily activities. - MET Phase 3 to Phase 4 Criteria: Criterion for Progression: Range of Motion: maintained full and equal to contralateral limb - MET Strength symmetry testin% symmetry using any of the following methods: Dynamometer testing - MET Motor control: 6 inch eccentric step-downs with heel tap, 20 reps, proper Mechanics. - MET Hopping in place: double leg and single leg, no pain, proper mechanics. - Partially MET, will continue Outcomes: IKDC greater than or equal to 7, ADL-RSI greater than or equal to 50-60 score. - MET Phase 4 to Phase 5 Criteria: Criterion for Progression: Maximum vertical jump without pain or instability. - Partially MET, will continue 80% of contralateral on single hop tests. - Partially MET, will continue (currently 78,71 and 89%) Normalized running. - Partially MET, will continue Y-balance - anterior reach: less than 4 cm asymmetry. - MET Strength: 85% symmetry. - Partially MET, will continue IKDC Question (Global Rating of Knee Function) score of 8 or greater. - MET Phase 5 to Return to Sport Criteria: Criterion for Progression: Strength: Greater than or equal to 90% symmetry. Hop testin% symmetry with proper mechanics. Pain free transition to activities and no functional complaints. Confidence when running, cutting, jumping at full speed. IKDC Question (Global Rating of Knee Function) of > 9. Patient Goals: regain prior functional status and play ultimate frisbee Patient Goals: regain prior functional status and play ultimate frisbee Planned Interventions, Frequency, and Duration: 1x every other week, 4 weeks Total Number of Visits Planned: 2 Patient to be seen for Therapeutic exercise (77986), Neuromuscular re-education (32662), Therapeutic activities (01969), Self-penitentiary management (89457), Gait Training (41603), Patient/Family/Caregiver Education, Body Mechanics Training, General Conditioning PLAN FOR NEXT VISIT: Phase 4 Negrete protocol. Progress to tolerance. Classification ACL-RSI Raw Score: 960 ACL-RSI Final Score %: 80 IKDC #10: 9 SUBJECTIVE: Pt reports that overall he is doing very well with continued slow but progressive improvements overall. He rates his overall recovery at 75%. He reports that at his follow up with referring provider on 07/18/23 he was fully released to resume prior functional activities, including ultimate frisbee. Pt reports that he does not have a follow up scheduled with Dr. Reed in the future. The patient's biggest concern is that he has returned to his prior functional level for running. He reports that he has done only minimal running since surgery and is not confident about his ability to do this. He agrees that he is where he should be but not where he wants to be. For that reason, he would like to continue supervised PT for (more content not included)... [facility] 07-21-2023 History of Presen t illness Narrative Episode Visit Count: 34 Therapist That Will Accept/Oversee The Plan Of Care: Maurice Pope Start of Care Date: 01/02/23 Onset Date: 11/04/22 Plan of Care Certification Date: 12/16/22 Patient Identified by Name and Date of : Yes REHABILITATION AND SPORTS THERAPY PHYSICAL THERAPY PROGRESS REPORT PLAN OF CARE UPDATE: Assessment: Terry Smith demonstrates significant improvement in walking, stair negotiation, heavy exertion, running, jumping, and squatting . He has progressed toward goals. Patient continues to present with impairments in balance, coordination, overall function, strength, and running/ultimate frisbee that interfere with recreational activities, physical activities, running, jumping, squatting. Current prognosis is Excellent due to: current objective clinical presentation, good overall health status, positive past response to therapy, within-session changes, good support system/ coping skills. He will benefit from continued skilled therapy services to meet the updated goals for this plan of care as noted below. Updated: 01/25/23 and 02/23/23 and 03/21/23 and 04/21/23 and 05/19/23 and 06/16/23 and 07/21/23 Goals for Episode of Care: created on 01/02/23 through 04/24/23 Phase 1 to Phase 2 Criteria: Criterion for Progression: Complete 20 straight leg raises with no quadriceps lag. - MET Range of motion Full active knee extension (within 3 degrees) Active Flexion to 110 degrees. - MET Full quadriceps activation: full, without visual inhibition. - MET Normalized Gait. - MET Discontinuation of Crutch/Immobilizer devices. - Partially MET Phase 2 to Phase 3 Criteria: Criterion for Progression: Range of motion: full, equal to contralateral. - MET Stairs: 10-12 steps, ascent/descent in a reciprocal pattern with (6-8 height). - MET Double leg squat: 60-90 degree bend, equal weight bearing, proper mechanics. - MET Demonstrates functional strength and control with performing daily activities. - MET Phase 3 to Phase 4 Criteria: Criterion for Progression: Range of Motion: maintained full and equal to contralateral limb - MET Strength symmetry testin% symmetry using any of the following methods: Dynamometer testing - MET Motor control: 6 inch eccentric step-downs with heel tap, 20 reps, proper Mechanics. - MET Hopping in place: double leg and single leg, no pain, proper mechanics. - Partially MET, will continue Outcomes: IKDC greater than or equal to 7, ADL-RSI greater than or equal to 50-60 score. - MET Phase 4 to Phase 5 Criteria: Criterion for Progression: Maximum vertical jump without pain or instability. - Partially MET, will continue 80% of contralateral on single hop tests. - Partially MET, will continue (currently 78,71 and 89%) Normalized running. - Partially MET, will continue Y-balance - anterior reach: less than 4 cm asymmetry. - MET Strength: 85% symmetry. - Partially MET, will continue IKDC Question (Global Rating of Knee Function) score of 8 or greater. - MET Phase 5 to Return to Sport Criteria: Criterion for Progression: Strength: Greater than or equal to 90% symmetry. Hop testin% symmetry with proper mechanics. Pain free transition to activities and no functional complaints. Confidence when running, cutting, jumping at full speed. IKDC Question (Global Rating of Knee Function) of > 9. Patient Goals: regain prior functional status and play ultimate frisbee Patient Goals: regain prior functional status and play ultimate frisbee Planned Interventions, Frequency, and Duration: 1x every other week, 4 weeks Total Number of Visits Planned: 2 Patient to be seen for Therapeutic exercise ([id number]), Neuromuscular re-education (53888), Therapeutic activities (43555), Self-penitentiary management ([id number]), Gait Training ([id number]), Patient/Family/Caregiver Education, Body Mechanics Training, General Conditioning PLAN FOR NEXT VISIT: Phase 4 Negrete protocol. Progress to tolerance. Classification ACL-RSI Raw Score: 960 ACL-RSI Final Score %: 80 IKDC #10: 9 SUBJECTIVE: Pt reports that overall he is doing very well with continued slow but progressive improvements overall. He rates his overall recovery at 75%. He reports that at his follow up with referring provider on 07/18/23 he was fully released to resume prior functional activities, including ultimate frisbee. Pt reports that he does not have a follow up scheduled with Dr. Reed in the future. The patient's biggest concern is that he has returned to his prior functional level for running. He reports that he has done only minimal running since surgery and is not confident about his ability to do this. He agrees that he is where he should be but not where he wants to be. For that reason, he would like to continue supervised PT for the rest of the year (2 visits). Patient Goals: regain prior functional status and play ultimate frisbee Functional Limitations: recreational activities, physical activities, running, jumping, squatting Prior Level of Function: Independent without limitations Pain: Pain Pain Level: 0 Pain Location: Knee - Right Description: (no pain to start today) Frequency: Intermittent Post Treatment Pain Post Treatment Pain Level: No Change Post Treatment Pain Location: Knee - Right Post Treatment Symptoms: Pt reports fatigue from a good workout but he denies any increase in pain. PROMIS Scales Higher is Better 07/21/2023 07/16/2023 06/14/2023 Phys Func - Score - 52 (within normal limits) 51 (within normal limits) Phys Func - Percentile - 58 % 54 % Self-Eff Symptom - Score 56 (Average) - 51 (Average) Self-Eff Symptom - Percentile 73 % - 54 % T-scores: mean of general population = 50. 5 points is clinically meaningfully difference Percentiles provide an indication of how the patient's score ranks in relation to the general population. Higher percentile rankings indicate better function/quality of life. 50th percentile is the average of the general population and indicates half of respondents had a worse score. OBJECTIVE MEASURES WITH LEVEL OF FUNCTION: Knee Observations R Circumference 6 inches above mid-patella (inches): 16.25 inches R Circumference mid patella (inches): 14.5 inches R Circumference 6 inches below mid-patella (inches): 13.75 inches L Circumference 6 inches above mid-patella (inches): 17.5 inches L Circumference mid patella (inches): 14.5 inches L Circumference 6 inches below mid-patella (inches): 14 inches LE AROM R LE AROM: supine R Knee Extension: 1 Degrees R Knee Flexion: 142 Degrees L Knee Extension: 1 Degrees L Knee Flexion: 150 Degrees Dynamometer Strength Right Quadriceps Strength (lbs): 86.3 Left Quadriceps Strength (lbs): 90 Quad Strength Limb Symmetry Index (%): 95.89 Right Hamstring Strength (lbs): 42 Left Hamstring Strength (lbs): 51.3 Hamstring Strength Limb Symmetry Index(%): 81.87 Right Hip Abduction Strength (lbs): 64.8 Left Hip Abduction Strength (lbs): 63.4 Functional Strength R SL Press Weight : 120 R SL Press Reps : 4 R SL Press 1 RM (calc): 135.98 L SL Press Weight : 130 L SL Press Reps : 4 L SL Press 1 RM (calc): 147.32 Gait Gait Observation: normal Hop - Crossover for Distance R Crossover hop for distance (cm) Trial 1: 200 cm R Crossover hop for distance (cm) Trial 2: 200 cm R Crossover hop for distance (cm) Trial 3: 200 cm R Crossover hop for distance average: 200 L Crossover hop for distance (cm) Trial 1: 256 cm L Crossover hop for distance (cm) Trial 2: 256 cm L Crossover hop for distance (cm) Trial 3: 256 cm L Crossover hop for distance average: 256 Distance Ratio: 78.13 Hop - Single Leg Hop for Distance R Single Leg Hop for Distance (cm) Trial 1: 61 cm R Single Leg Hop for Distance (cm) Trial 2: 61 cm R Single Leg Hop for Distance (cm) Trial 3: 61 cm R Single-Leg Hop for Distance Average: 61 L Single Leg Hop for Distance (cm) Trial 1: 86 cm L Single Leg Hop for Distance (cm) Trial 2: 86 cm L Single Leg Hop for Distance (cm) Trial 3: 86 cm L Single-Leg Hop for Distance Average: 86 Distance Ratio: 70.93 Hop - Single-Leg Triple Hop for Distance R Single-Leg Triple Hop for Distance (cm) Trial 1: 240 cm R Single-Leg Triple Hop for Distance (cm) Trial 2: 240 cm R Single-Leg Triple Hop for Distance (cm) Trial 3: 240 cm R Single-Leg Triple Hop for Distance Average : 240 L Single-Leg Triple Hop for Distance (cm) Trial 1: 269 cm L Single-Leg Triple Hop for Distance (cm) Trial 2: 269 cm L Single-Leg Triple Hop for Distance (cm) Trial 3: 269 cm L Single-Leg Triple Hop for Distance Average: 269 Distance Ratio: 89.22 TREATMENT: [facility]: ACL ACL Phase: Phase 4: Advanced Training Phase Therapeutic Exercise: 1: Upright bike seat #7 level #8 x5 minutes. (Pt provided an update on his condition and plan of care reviewed. Subjective status of goals assessed.) 2: TM runnin minute at 3mph, then 3 minutes at 5.5mph and then 1 minute at 3mph (His quality of gait on treadmill with running is smooth and appropriate with no assymmetries.) 4: 1RM determined on leg press B 5: R HS curl machine 80# 3x15 9: R SLS ball toss to rebounder 3x15 10: Re-assessment completed and results shared with patient in detail. These results were used to justify plan of care recommendations. All of his questions were answered 11: HEP reviewed and continuation encouraged to tolerance based on findings of detailed re-assessment. Skilled Intervention: Patient was educated in proper exercise technique and purpose for exercises. Skilled judgment was used in selection of appropriate interventions. Correct performance of therapeutic exercises was facilitated with verbal and visual cuing. Gait Trainin: running assessed on treadmill x5 minutes with cues Skilled Intervention: Facilitated proper gait cycle with the use of verbal cues for correction of gait deviations identified in the objective section above. Billing Therapeutic Exercise Treatment Minutes: 55 Gait Training Treatment Minutes: 5 Skilled Treatment Time Minutes (timed and untimed codes): 60 Total Session Time (minutes): 60 Session Start Time : 1400 Session Stop Time : 1500 Maurice Pope PT documented in this encounter [facility] 07-18-2023 Note HNO ID: [id number] Author: Jim Reed MD Service: ? Author Type: Physician Type: Progress Notes Filed: 07/18/2023 12:15 PM Note Text: DATE OF PROCEDURE: December 29, 2022 OPERATION: 1. Right knee arthroscopically-assisted anterior cruciate ligament reconstruction with quintuple stranded hamstring autograft 2. Diagnostic arthroscopy. 3. Examination under anesthesia. 4. Right knee partial lateral meniscectomy REF: Dr. Ahn Interval history: Terry Smith returns today status post right knee surgery. Chief complaint is resolved right knee pain. Doing well . Review of Systems: CV: No chest pain Pulm: No short of breath HEENT: No head ache General: no fevers, chills, nausea/vomiting, malaise Physical Examination: This is a well appearing, well nourished patient in no acute distress. Head is normocephalic and atraumatic. White sclera and pink conjunctiva. Mucous membranes are moist. Breathes easily and has normal chest wall excursion. Affect is normal. right knee: negative gian's Range of motion: Flexion is lacking 2 fingerbreadths, extension is full . Effusion: trace. Incisions: well-healing . No infection. Imaging: none Impression: Terry Smith is a 37 year old male, who is approaching 6 months status post right knee ACLR and partial lateral meniscectomy. Doing fine . Plan: Can follow-up as needed, no further appointments needed at this time By signing my name below, I, Nadia Riley, attest that this documentation has been prepared under the direction and in the presence of Dr. Reed Electronically signed, Nadia Riley, Medical Student/Scribe July 18, 2023 12:02 PM I agree with the Chief Complaint, ROS, and Past Histories independently gathered by the clinical administrative support coordinator and the remaining scribed note accurately describes my personal service to the patient. Jim Reed MD . [facility] 07-17-2023 Note HNO ID: [id number] Author: Stacy Young LPN Service: ? Author Type: LICENSED NURSE Type: Progress Notes Filed: 07/17/2023 9:54 AM Note Text: Per Dr. Velasquez, Terry was provided with powerstep gel inserts, size 11, and instructed/educated in its application, wear, and care. All questions were answered, and patient was able to demonstrate competence with the necessary skills to utilize the above equipment. Stacy Young LPN [facility] 07-17-2023 Note HNO ID: [id number] Author: Dian Velasquez Service: ? Author Type: Physician Type: Progress Notes Filed: 07/17/2023 9:54 AM Note Text: Initial Podiatric Office Visit: Chief Complaint: This 37 year old male who presents with chief complaint:left great toe pain. Patient also complains of pain in the ball of right foot HPI Patient presents to clinic for evaluation of left great toe. He has pain that is on/off for several years. He states some time he feels a grinding sensation to the left great toe. He feels this started from injury several years ago. He has pain that is on/off. When pain is present, he will notice pain with pushoff of the great toe. Patient does not really do anything for the pain. At times, he will take naproxen. Patient does report pain in the ball of right foot. Patient states the pain in the ball of right foot is more recent and has been on/off for one year Does have recent acl reconstruction. PAIN EVALUATION No data found in the last 1 encounters. 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 calcipotriene (DOVONEX) 0.005 % cream Apply to affected area two times a day. betamethasone valerate 0.1 % cream Apply to affected area two times a day as needed (for psoriasis in the groin and ears). betamethasone dipropionate (DIPROSONE) 0.05 % cream Apply to affected area two times a day as needed (for psoriasis on the body and feet.). MULTIVITAMIN ORAL Take by mouth. No current facility-administered medications for this visit. ALLERGIES Allergen Reactions Seasonal Allergies Other: See Comments Sinus issues PAST SURGICAL HISTORY Procedure Laterality Date PAST SURGICAL HISTORY OF 2003 Extraction of wisdom teeth PAST SURGICAL HISTORY OF 2011 Right maxillary sinus sx FAMILY HISTORY Problem Relation Age of Onset other (MS [Other]) Mother 54 Heart Father 57 No Known Problems Sister No Known Problems Brother No Known Problems Brother No Known Problems Brother Diabetes Maternal Grandfather Anesthesia Problems No Family History Blood Clots No Family History Clotting Disorder No Family History Social History Tobacco Use Smoking status: Never Smokeless tobacco: Never Vaping Use Vaping Use: Never used Substance Use Topics Alcohol use: Yes Comment: 2-3 drinks 2-3 x / wk Drug use: Never REVIEW OF SYSTEMS GENERAL: Negative for Malaise, significant weight loss, fever RESPIRATORY: Negative for cough, wheezing and shortness of breath CARDIOVASCULAR: Negative for chest pain, leg swelling and palpitations GI: Negative for abdominal discomfort, blood in stools or black stools and change in bowel habits : Negative for dysuria, frequency and incontinence MUSCULOSKELETAL: Negative for joint pain or swelling, back pain, and muscle pain. SKIN: Negative for lesions, rash, and itching. HEMATOLOGY/LYMPHOLOGY Negative for prolonged bleeding, bruising easily, and swollen nodes. ENDOCRINE: Negative for cold or heat intolerance, polyuria, polydipsia and goiter. NEURO: negative Physical Exam: Constitutional: Pt is a well developed 37 year old male who is alert, oriented and cooperative Eyes: Following during examination. No redness or drainage. Respiratory: RR normal and nonlabored. Even breathing. No evidence of distress or shortness of breath. Psychology: Patient is engaged during conversation. Normal affect and mood. Does not appear depressed or anxious during encounter. Vascular: Dorsalis pedis and posterior tibial pulses palpable as b/l Capillary Fill time < 5 seconds to digits 1-5 b/l Skin temperature warm to warm proximal to distal b/l Hair growth present to digits Neurological: intact light touch/epicritic sensation b/l intact protective sensation no significant neurological deficits Dermatological: Nails 1-5 b/l appear normal. Webspaces clean and dry 1-4 b/l. Skin appears well hydrated and supple. good color, texture, turgor. No open lesions present. No callosities present. Musculoskeletal/Orthopaedic: Patient has pain to palpation of left medial 1st metatarsal. Some pain with dorsiflexion of left 1st mtpj Pain present to right 2nd interspace Foot type is slightly pronated structurally Hypermobile first ray b/l. AJ ROM is full with knee extended and flexed 1st MPJ is full when loaded and no pain or crepitus are noted with ROM. MTJ, STJ are full and (more content not included)... [facility] 07-17-2023 Note HNO ID: [id number] Author: Minerva Hope, JAMES Service: ? Author Type: Registered Nurse Type: Progress Notes Filed: 07/17/2023 9:54 AM Note Text: Patient presents with: Left Great Toe - New, Pain Right Foot - New, Pain Patient presents for Left big toe pain and right center ball of foot pain. States that it has gotten better since he made the appointment, but still painful. Initially the pain would keep him up at night. No recent injury, thinks he broke left foot like 20 years ago and never got it looked at. [facility] 07-17-2023 Note HNO ID: [id number] Author: Daina Peña RT(R) Service: ? Author Type: Technologist Type: Progress Notes Filed: 07/17/2023 10:02 AM Note Text: Radiology Service Progress Note PATIENT NAME: Terry Smith DATE OF SERVICE: July 17, 2023 TIME: 10:02 AM PATIENT IDENTITY VERIFICATION COMPLETED USING TWO (2) IDENTIFIERS: Name and Date of confirmed by patient verbally. FALL SCREENING: Has the patient had 2 falls in the last year or 1 fall with injury or currently using an Ambulatory Assistive Device (Walker, Cane, Wheelchair, Crutches, etc.)? No PATIENT GENDER DATA: Male PATIENT RELEVANT IMPLANT DATA REVIEWED: Not Applicable RADIOLOGY DEPARTMENT: General X-ray: Exam(s) Completed: Lower Extremity X-Ray(s): Foot, Left and Wt. Bearing PERIPHERAL IV DATA: Not applicable SIGNED BY: Daina Peña RT(R) July 17, 2023 10:02 AM [facility] 07-17-2023 History of Presen t illness Narrative Per Dr. Velasquez, Terry was provided with powerstep gel inserts, size 11, and instructed/educated in its application, wear, and care. All questions were answered, and patient was able to demonstrate competence with the necessary skills to utilize the above equipment. Stacy Young LPN Initial Podiatric Office Visit: Chief Complaint: This 37 year old male who presents with chief complaint:left great toe pain. Patient also complains of pain in the ball of right foot HPI Patient presents to clinic for evaluation of left great toe. He has pain that is on/off for several years. He states some time he feels a grinding sensation to the left great toe. He feels this started from injury several years ago. He has pain that is on/off. When pain is present, he will notice pain with pushoff of the great toe. Patient does not really do anything for the pain. At times, he will take naproxen. Patient does report pain in the ball of right foot. Patient states the pain in the ball of right foot is more recent and has been on/off for one year Does have recent acl reconstruction. PAIN EVALUATION No data found in the last 1 encounters. 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 calcipotriene (DOVONEX) 0.005 % cream Apply to affected area two times a day. betamethasone valerate 0.1 % cream Apply to affected area two times a day as needed (for psoriasis in the groin and ears). betamethasone dipropionate (DIPROSONE) 0.05 % cream Apply to affected area two times a day as needed (for psoriasis on the body and feet.). MULTIVITAMIN ORAL Take by mouth. No current facility-administered medications for this visit. ALLERGIES Allergen Reactions Seasonal Allergies Other: See Comments Sinus issues PAST SURGICAL HISTORY Procedure Laterality Date PAST SURGICAL HISTORY OF 2003 Extraction of wisdom teeth PAST SURGICAL HISTORY OF 2011 Right maxillary sinus sx FAMILY HISTORY Problem Relation Age of Onset other (MS [Other]) Mother 54 Heart Father 57 No Known Problems Sister No Known Problems Brother No Known Problems Brother No Known Problems Brother Diabetes Maternal Grandfather Anesthesia Problems No Family History Blood Clots No Family History Clotting Disorder No Family History Social History Tobacco Use Smoking status: Never Smokeless tobacco: Never Vaping Use Vaping Use: Never used Substance Use Topics Alcohol use: Yes Comment: 2-3 drinks 2-3 x / wk Drug use: Never REVIEW OF SYSTEMS GENERAL: Negative for Malaise, significant weight loss, fever RESPIRATORY: Negative for cough, wheezing and shortness of breath CARDIOVASCULAR: Negative for chest pain, leg swelling and palpitations GI: Negative for abdominal discomfort, blood in stools or black stools and change in bowel habits : Negative for dysuria, frequency and incontinence MUSCULOSKELETAL: Negative for joint pain or swelling, back pain, and muscle pain. SKIN: Negative for lesions, rash, and itching. HEMATOLOGY/LYMPHOLOGY Negative for prolonged bleeding, bruising easily, and swollen nodes. ENDOCRINE: Negative for cold or heat intolerance, polyuria, polydipsia and goiter. NEURO: negative Physical Exam: Constitutional: Pt is a well developed 37 year old male who is alert, oriented and cooperative Eyes: Following during examination. No redness or drainage. Respiratory: RR normal and nonlabored. Even breathing. No evidence of distress or shortness of breath. Psychology: Patient is engaged during conversation. Normal affect and mood. Does not appear depressed or anxious during encounter. Vascular: Dorsalis pedis and posterior tibial pulses palpable as b/l Capillary Fill time < 5 seconds to digits 1-5 b/l Skin temperature warm to warm proximal to distal b/l Hair growth present to digits Neurological: intact light touch/epicritic sensation b/l intact protective sensation no significant neurological deficits Dermatological: Nails 1-5 b/l appear normal. Webspaces clean and dry 1-4 b/l. Skin appears well hydrated and supple. good color, texture, turgor. No open lesions present. No callosities present. Musculoskeletal/Orthopaedic: Patient has pain to palpation of left medial 1st metatarsal. Some pain with dorsiflexion of left 1st mtpj Pain present to right 2nd interspace Foot type is slightly pronated structurally Hypermobile first ray b/l. AJ ROM is full with knee extended and flexed 1st MPJ is full when loaded and no pain or crepitus are noted with ROM. MTJ, STJ are full and free of pain and crepitus. +5/5 muscle strength dorsiflexion, plantarflexion, inversion, eversion b/l Radiographs: 3 views left foot ordered July 17, 2023: I have personally reviewed and interpreted these XR myself: mild bunion of left foot. Dorsal spur of left 1st metatarsal head ASSESSMENT: (M20.12) Acquired hallux valgus of left foot (primary encounter diagnosis) (D36.10) Neuroma PLAN: 1. History and physical examination performed. 2. XR reviewed with patient and interpreted today 3. Discussed subtle bunion of left foot. Recommend wider shoes . Also , he does have small dorsal spur of left 1st metatarsal so early arthritic changes from past injury is likely associated with his pain. Would recommend firm sole sneaker with use of insert. Inserts dispensed. If pain persists, could consider surgery to correction arthritic bunion 4. Discussed neuroma of right 2nd interspace. No pain currently. Will try inserts. If pain were to return, consider injection Dian Velasquez DPM Podiatry [address] [facility] [id number] Dept: [phone] Dept Patient presents with: Left Great Toe - New, Pain Right Foot - New, Pain Patient presents for Left big toe pain and right center ball of foot pain. States that it has gotten better since he made the appointment, but still painful. Initially the pain would keep him up at night. No recent injury, thinks he broke left foot like 20 years ago and never got it looked at. documented in this encounter [facility] 07-17-2023 Instructions Dian Velasquez - 07/17/2023 9:48 AM EST Powerstep Original Full length. Can purchase at [facility] [employer] and boots,shoes and more here in [place], [employer] in [place] or [place]. Also can find in [place] in [facility]. Powersteps can also be purchased online, starting around $45.00 If you have a metatarsal or dancer pad for your feet apply the pad directly to the insole so you can interchange between your shoes. Find a shoe with a removable insole and take this out and replace with your powerstep insole. Always bring powersteps with you when shopping for shoes so that you can make sure that everything fits well together Recommend wider shoes, such as hoka, mulligan or asics documented in this encounter [facility] 06-30-2023 Note HNO ID: [id number] Author: Maurice Pope, PT Service: ? Author Type: Physical Therapist Type: Progress Notes Filed: 06/30/2023 1:55 PM Note Text: Episode Visit Count: 33 Therapist That Will Accept/Oversee The Plan Of Care: Maurice Pope Start of Care Date: 01/02/23 Onset Date: 11/04/22 Plan of Care Certification Date: 12/16/22 Patient Identified by Name and Date of : Yes REHABILITATION AND SPORTS THERAPY PHYSICAL THERAPY TREATMENT NOTE ASSESSMENT: Terry Smith tolerated the session with fatigue, expected muscle soreness, and no issues. He demonstrated improvements in exercise tolerance and general function. The patient will continue to benefit from ongoing skilled physical therapy to progress toward set goals, for reassessment by supervising therapist, and to continue with post-operative protocol. PLAN FOR NEXT VISIT: Phase 4 Negrete protocol. Progress to tolerance. SUBJECTIVE: Pt reports continued progressive improvements overrall. He reports compliance with HEP 2x day, including addition last session. He denies any new issues or functional limitations. He denies any pain to start today. Pain: Pain Pain Level: 0 Pain Location: Knee - Right Description: (no pain to start today) Frequency: Intermittent Post Treatment Pain Post Treatment Pain Level: No Change Post Treatment Pain Location: Knee - Right Post Treatment Symptoms: After therex, pt reported fatigue from a good workout but he denied any increase in pain. OBJECTIVE MEASURES WITH LEVEL OF FUNCTION: TREATMENT: Carepath: ACL ACL Phase: Phase 4: Advanced Training Phase Therapeutic Exercise: 1: Upright bike seat #7 level #8 x5 minutes. (Pt provided an update on his condition and plan of care reviewed.) 2: [employer] black hole program level 5 x5 minutes 3: squats on platform side of BOSU 3x15 4: R leg press 120# 1x10 with L LE assist and 100 2x10 without assist from L LE. 5: R HS curl machine 80# 3x12 6: Multi-hip machine 100# B hip flexion, extension and abduction x15 each 7: L retro lunge slide standing on R LE 3x10 8: R HS stool scoot 2 laps 9: R SLS ball toss to rebounder 3x15 10: R single leg lift wiht 5# kettle cai 3x10 11: HEP reviewed and continuation encouraged to tolerance. Skilled Intervention: Patient was educated in proper exercise technique and purpose for exercises. Skilled judgment was used in selection of appropriate interventions. Correct performance of therapeutic exercises was facilitated with verbal, visual, and tactile cuing. Patient education as noted. Billing Therapeutic Exercise Treatment Minutes: 43 Skilled Treatment Time Minutes (timed and untimed codes): 43 Total Session Time (minutes): 43 Session Start Time : 1302 Session Stop Time : 1345 Maurice Pope PT [facility] 06-29-2023 Note HNO ID: [id number] Author: Ayla Guaman PA-C Service: ? Author Type: Physician Design Consultant Type: Progress Notes Filed: 06/29/2023 2:17 PM Note Text: EST PATIENT MATTHEW in Dermatology: Visit date not found CC: This patient is a 37 year old male. Patient presents with: Psoriasis HPI: Presents today for Dermatitis -Unsure if it is psoriasis, states there are new spots on underarm, hairline -Left underarm, noticed ~1 month ago -Did not try any of his current meds on it -Saw Dr. Casarez 01/2022 and prescribed : desonide (TRIDESILON) 0.05 % cream calcipotriene (DOVONEX) 0.005 % cream betamethasone valerate 0.1 % cream betamethasone dipropionate (DIPROSONE) 0.05 % cream -reports he very sparingly uses this- possibly once a month -undergoing a lot of stress - flaring -uses head and shoulders and selsun blue on scalp -Pt has no other concerns at this time. PERTINENT HISTORY: -Personal history of skin cancer or atypical nevi: No -History of blistering sunburns: No -Family history of skin cancer: Yes, maternal grandfather SOC: Social History Tobacco Use Smoking status: Never Smokeless tobacco: Never Substance Use Topics Alcohol use: Not Currently Comment: 2-3 drinks 2-3 x / wk Drug use: Never MEDS: Current outpatient prescriptions: Current Outpatient Medications on File Prior to Visit Medication Sig dextroamphetamine-amphetamine (ADDERALL) 10 mg tablet Take 1 tablet by mouth once daily for 30 days. calcipotriene (DOVONEX) 0.005 % cream Apply to affected area two times a day. betamethasone valerate 0.1 % cream Apply to affected area two times a day as needed (for psoriasis in the groin and ears). betamethasone dipropionate (DIPROSONE) 0.05 % cream Apply to affected area two times a day as needed (for psoriasis on the body and feet.). MULTIVITAMIN ORAL Take by mouth. No current facility-administered medications on file prior to visit. ALLERGY: ALLERGIES Allergen Reactions Seasonal Allergies Other: See Comments Sinus issues REVIEW OF SYSTEMS: Patient feels well and denies any recent fevers, chills, or nightsweats.. Skin: see HPI PHYSICAL EXAM: The patient is a pleasant male in no distress. Patient appears healthy, well developed, well nourished and in otherwise good health. Alert and oriented x 3. A skin exam was done of the face, scalp, chest, back, abdomen, bilateral upper extremities, and bilateral lower extremities. Hernandez Skin Type: II IMPRESSION: Erythematous scaly psoriasiform papules and plaques frontal scalp, fore head, nasolabial folds, left axilla, left elbow A/P: 1) psoriasis - BSA ~ 3 Recently had medications from Dr. Casarez refilled: calcipotriene (DOVONEX) 0.005 % cream betamethasone valerate 0.1 % cream betamethasone dipropionate (DIPROSONE) 0.05 % cream Reviewed where and when to apply each medication Discussed Vtama as option- would like to retry cream as above as patient admits to not using often R/b/a for the medication(s) including possible side effects discussed and reviewed with patient. 2) sebopsoriasis - Recommend alternating Tsal shampoo and head and shoulders, let sit 5-10 min before rinsing off Ok to use calcipotriene 0.005% cream to affected gina on forehead and face Recommend regular use of Vanicream or CeraVe moisturizer to face Patient would like to limit medications as much as possible, topical steroid solution for scalp in reserve Follow up in 3 months and PRN The documentation for this note was partially completed by Stephanie Jimenez RN acting as scribe for Ayla Guaman PA-C. June 29, 2023 1:37 PM. I agree with the Chief Complaint, ROS, and Past Histories independently gathered by the clinical administrative support coordinator and the remaining scribed note accurately describes my personal service to the patient. Ayla Guaman PA-C June 29, 2023 2:16 PM [facility] 06-29-2023 Instructions Ayla Guaman PA-C - 06/29/2023 1:52 PM EST Vanicream and CeraVe documented in this encounter [facility] 06-29-2023 History of Presen t illness Narrative EST PATIENT MATTHEW in Dermatology: Visit date not found CC: This patient is a 37 year old male. Patient presents with: Psoriasis HPI: Presents today for Dermatitis -Unsure if it is psoriasis, states there are new spots on underarm, hairline -Left underarm, noticed ~1 month ago -Did not try any of his current meds on it -Saw Dr. Casarez 01/2022 and prescribed : desonide (TRIDESILON) 0.05 % cream calcipotriene (DOVONEX) 0.005 % cream betamethasone valerate 0.1 % cream betamethasone dipropionate (DIPROSONE) 0.05 % cream -reports he very sparingly uses this- possibly once a month -undergoing a lot of stress - flaring -uses head and shoulders and selsun blue on scalp -Pt has no other concerns at this time. PERTINENT HISTORY: -Personal history of skin cancer or atypical nevi: No -History of blistering sunburns: No -Family history of skin cancer: Yes, maternal grandfather SOC: Social History Tobacco Use Smoking status: Never Smokeless tobacco: Never Substance Use Topics Alcohol use: Not Currently Comment: 2-3 drinks 2-3 x / wk Drug use: Never MEDS: Current outpatient prescriptions: Current Outpatient Medications on File Prior to Visit Medication Sig dextroamphetamine-amphetamine (ADDERALL) 10 mg tablet Take 1 tablet by mouth once daily for 30 days. calcipotriene (DOVONEX) 0.005 % cream Apply to affected area two times a day. betamethasone valerate 0.1 % cream Apply to affected area two times a day as needed (for psoriasis in the groin and ears). betamethasone dipropionate (DIPROSONE) 0.05 % cream Apply to affected area two times a day as needed (for psoriasis on the body and feet.). MULTIVITAMIN ORAL Take by mouth. No current facility-administered medications on file prior to visit. ALLERGY: ALLERGIES Allergen Reactions Seasonal Allergies Other: See Comments Sinus issues REVIEW OF SYSTEMS: Patient feels well and denies any recent fevers, chills, or nightsweats.. Skin: see HPI PHYSICAL EXAM: The patient is a pleasant male in no distress. Patient appears healthy, well developed, well nourished and in otherwise good health. Alert and oriented x 3. A skin exam was done of the face, scalp, chest, back, abdomen, bilateral upper extremities, and bilateral lower extremities. Hernandez Skin Type: II IMPRESSION: Erythematous scaly psoriasiform papules and plaques frontal scalp, fore head, nasolabial folds, left axilla, left elbow A/P: 1) psoriasis - BSA ~ 3 Recently had medications from Dr. Casarez refilled: calcipotriene (DOVONEX) 0.005 % cream betamethasone valerate 0.1 % cream betamethasone dipropionate (DIPROSONE) 0.05 % cream Reviewed where and when to apply each medication Discussed Vtama as option- would like to retry cream as above as patient admits to not using often R/b/a for the medication(s) including possible side effects discussed and reviewed with patient. 2) sebopsoriasis - Recommend alternating Tsal shampoo and head and shoulders, let sit 5-10 min before rinsing off Ok to use calcipotriene 0.005% cream to affected gina on forehead and face Recommend regular use of Vanicream or CeraVe moisturizer to face Patient would like to limit medications as much as possible, topical steroid solution for scalp in reserve Follow up in 3 months and PRN The documentation for this note was partially completed by Stephanie Jimenez RN acting as scribe for Ayla Guaman PA-C. June 29, 2023 1:37 PM. I agree with the Chief Complaint, ROS, and Past Histories independently gathered by the clinical administrative support coordinator and the remaining scribed note accurately describes my personal service to the patient. Ayla Guaman PA-C June 29, 2023 2:16 PM documented in this encounter [facility] 06-21-2023 Note HNO ID: [id number] Author: Doug Peres MD Service: ? Author Type: Physician Type: Progress Notes Filed: 06/21/2023 12:23 PM Note Text: This note was created using [employer]. Subjective Terry Smith is a 37 year old male. He took the Adderall daily and this was effective for his concentration. He self rated his focus, concentration, activities of daily living at around 70% on medication. However, he was tolerating anxiety from the medication but not the insomnia. It was not unusual to be up and wanting to do things thru the night. Review of Systems Constitutional: Negative for fatigue and unexpected weight change. Respiratory: Negative. Cardiovascular: Negative. Gastrointestinal: Negative. Psychiatric/Behavioral: See HPI. ACTIVE PROBLEM LIST Allergic Rhinitis Bruxism Psoriasis Left Anterior Cruciate Ligament Tear Rupture of Anterior Cruciate Ligament of Right Knee Current Outpatient Medications Medication Sig calcipotriene (DOVONEX) 0.005 % cream Apply to affected area two times a day. betamethasone valerate 0.1 % cream Apply to affected area two times a day as needed (for psoriasis in the groin and ears). betamethasone dipropionate (DIPROSONE) 0.05 % cream Apply to affected area two times a day as needed (for psoriasis on the body and feet.). MULTIVITAMIN ORAL Take by mouth. dextroamphetamine-amphetamine (ADDERALL) 10 mg tablet Take 1 tablet by mouth once daily for 30 days. No current facility-administered medications for this visit. Objective BP 106/72 (BP Site: Left Arm, BP Position: Sitting, BP Cuff Size: Large Adult) Pulse 80 Resp 18 Wt 75.8 kg (167 lb) BMI 21.99 kg/m? Physical Exam Constitutional: General: He is not in acute distress. Appearance: He is not ill-appearing. Pulmonary: Effort: Pulmonary effort is normal. Neurological: Mental Status: He is alert. Psychiatric: Attention and Perception: Attention normal. Mood and Affect: Mood is anxious. Speech: Speech normal. Behavior: Behavior normal. Thought Content: Thought content normal. Assessment and Plan 1. ADHD (attention deficit hyperactivity disorder), combined type - ICD9: 314.01, ICD10: F90.2 Shared Medical Decision Making was done: Medication: adderall. Benefits: Medication may help symptoms in the short term and in the coater. Risks: Possible side effects were discussed including habituation. Possible interactions: n/a. Warnings: abuse potential. Approved use or off label use: approved.. Options: bupropion. He was open to this if stimulant did not perform as expected. We agreed to change medication from XR to instant release. - Call for refill if effective. Need for regular appointments every 3-6 months was reviewed. - DEXTROAMPHETAMINE-AMPHETAMINE 10 MG TABLET Doug Peres MD [facility] 06-21-2023 History of Presen t illness Narrative This note was created using [email or web address]. Subjective Terry Smith is a 37 year old male. He took the Adderall daily and this was effective for his concentration. He self rated his focus, concentration, activities of daily living at around 70% on medication. However, he was tolerating anxiety from the medication but not the insomnia. It was not unusual to be up and wanting to do things thru the night. Review of Systems Constitutional: Negative for fatigue and unexpected weight change. Respiratory: Negative. Cardiovascular: Negative. Gastrointestinal: Negative. Psychiatric/Behavioral: See HPI. ACTIVE PROBLEM LIST Allergic Rhinitis Bruxism Psoriasis Left Anterior Cruciate Ligament Tear Rupture of Anterior Cruciate Ligament of Right Knee Current Outpatient Medications Medication Sig calcipotriene (DOVONEX) 0.005 % cream Apply to affected area two times a day. betamethasone valerate 0.1 % cream Apply to affected area two times a day as needed (for psoriasis in the groin and ears). betamethasone dipropionate (DIPROSONE) 0.05 % cream Apply to affected area two times a day as needed (for psoriasis on the body and feet.). MULTIVITAMIN ORAL Take by mouth. dextroamphetamine-amphetamine (ADDERALL) 10 mg tablet Take 1 tablet by mouth once daily for 30 days. No current facility-administered medications for this visit. Objective BP 106/72 (BP Site: Left Arm, BP Position: Sitting, BP Cuff Size: Large Adult) Pulse 80 Resp 18 Wt 75.8 kg (167 lb) BMI 21.99 kg/m Physical Exam Constitutional: General: He is not in acute distress. Appearance: He is not ill-appearing. Pulmonary: Effort: Pulmonary effort is normal. Neurological: Mental Status: He is alert. Psychiatric: Attention and Perception: Attention normal. Mood and Affect: Mood is anxious. Speech: Speech normal. Behavior: Behavior normal. Thought Content: Thought content normal. Assessment and Plan 1. ADHD (attention deficit hyperactivity disorder), combined type - ICD9: 314.01, ICD10: F90.2 Shared Medical Decision Making was done: Medication: adderall. Benefits: Medication may help symptoms in the short term and in the coater. Risks: Possible side effects were discussed including habituation. Possible interactions: n/a. Warnings: abuse potential. Approved use or off label use: approved.. Options: bupropion. He was open to this if stimulant did not perform as expected. We agreed to change medication from XR to instant release. - Call for refill if effective. Need for regular appointments every 3-6 months was reviewed. - DEXTROAMPHETAMINE-AMPHETAMINE 10 MG TABLET Doug Peres MD documented in this encounter [facility] 06-16-2023 Note HNO ID: [id number] Author: Maurice Pope, PT Service: ? Author Type: Physical Therapist Type: Progress Notes Filed: 06/16/2023 5:17 PM Note Text: Episode Visit Count: 32 Therapist That Will Accept/Oversee The Plan Of Care: Maurice Pope Start of Care Date: 01/02/23 Onset Date: 11/04/22 Plan of Care Certification Date: 12/16/22 Patient Identified by Name and Date of : Yes REHABILITATION AND SPORTS THERAPY PHYSICAL THERAPY PROGRESS REPORT PLAN OF CARE UPDATE: Assessment: Terry Smith demonstrates significant improvement in walking, physical activities, recreational activities, jumping, squatting, and working . He has progressed toward goals. Patient continues to present with impairments in balance, coordination, overall function, strength, symptom management, and tissue tenderness that interfere with recreational activities, physical activities, running, jumping, squatting . Current prognosis is Excellent due to: current objective clinical presentation, good overall health status, acuteness of condition, positive past response to therapy, within-session changes, good support system/ coping skills He will benefit from continued skilled therapy services to meet the updated goals for this plan of care as noted below. Updated: 01/25/23 and 02/23/23 and 03/21/23 and 04/21/23 and 05/19/23 and 06/16/23 Goals for Episode of Care: created on 01/02/23 through 04/24/23 Phase 1 to Phase 2 Criteria: Criterion for Progression: Complete 20 straight leg raises with no quadriceps lag. - MET Range of motion Full active knee extension (within 3 degrees) Active Flexion to 110 degrees. - MET Full quadriceps activation: full, without visual inhibition. - MET Normalized Gait. - MET Discontinuation of Crutch/Immobilizer devices. - Partially MET Phase 2 to Phase 3 Criteria: Criterion for Progression: Range of motion: full, equal to contralateral. - MET Stairs: 10-12 steps, ascent/descent in a reciprocal pattern with (6-8 height). - MET Double leg squat: 60-90 degree bend, equal weight bearing, proper mechanics. - MET Demonstrates functional strength and control with performing daily activities. - MET Phase 3 to Phase 4 Criteria: Criterion for Progression: Range of Motion: maintained full and equal to contralateral limb - MET Strength symmetry testin% symmetry using any of the following methods: Dynamometer testing - Partially MET, will continue, especially R hamstrings Motor control: 6 inch eccentric step-downs with heel tap, 20 reps, proper Mechanics. - MET Hopping in place: double leg and single leg, no pain, proper mechanics. - Partially MET, will continue Outcomes: IKDC greater than or equal to 7, ADL-RSI greater than or equal to 50-60 score. - MET Phase 4 to Phase 5 Criteria: Criterion for Progression: Maximum vertical jump without pain or instability. - Partially MET, will continue 80% of contralateral on single hop tests. - Partially MET, will continue (currently 67%) Normalized running. - Partially MET, will continue Y-balance - anterior reach: less than 4 cm asymmetry. - MET Strength: 85% symmetry. - Partially MET, will continue IKDC Question (Global Rating of Knee Function) score of 8 or greater. - Partially MET, will continue Phase 5 to Return to Sport Criteria: Criterion for Progression: Strength: Greater than or equal to 90% symmetry. Hop testin% symmetry with proper mechanics. Pain free transition to activities and no functional complaints. Confidence when running, cutting, jumping at full speed. IKDC Question (Global Rating of Knee Function) of > 9. Patient Goals: regain prior functional status and play ultimate frisbee Patient Goals: regain prior functional status and play ultimate frisbee Planned Interventions, Frequency, and Duration: 1x every other week, 6 weeks Total Number of Visits Planned: 3 Patient to be seen for Therapeutic exercise (35572), Neuromuscular re-education (50468), Therapeutic activities (39066), Self-penitentiary management (42239), Gait Training (14421), Patient/Family/Caregiver Education, Body Mechanics Training, General Conditioning PLAN FOR NEXT VISIT: Phase 4 Negrete protocol. Progress to tolerance. Classification ACL-RSI Raw Score: 960 ACL-RSI Final Score %: 80 IKDC #10: 8 SUBJECTIVE: Pt reports that overall he is doing well but not significantly different from last session. He reports that he has not been pushing it. He feels that his progress has leveled off. He denies any pain to start today and overall states, I feel good today. He denies any functional limitations for basic ADLs. He is not currently running or participating in sports but by choice, not inability. He reports that he is still being cautious. Patient Goals: regain prior functional status and play ultimate frisbee Functional Limitations: recreational activities, physical activities, running, jumping, squatting Prior Level of (more content not included)... [facility] 06-16-2023 History of Presen t illness Narrative Episode Visit Count: 32 Therapist That Will Accept/Oversee The Plan Of Care: Maurice Pope Start of Care Date: 01/02/23 Onset Date: 11/04/22 Plan of Care Certification Date: 12/16/22 Patient Identified by Name and Date of : Yes REHABILITATION AND SPORTS THERAPY PHYSICAL THERAPY PROGRESS REPORT PLAN OF CARE UPDATE: Assessment: Terry Smith demonstrates significant improvement in walking, physical activities, recreational activities, jumping, squatting, and working . He has progressed toward goals. Patient continues to present with impairments in balance, coordination, overall function, strength, symptom management, and tissue tenderness that interfere with recreational activities, physical activities, running, jumping, squatting . Current prognosis is Excellent due to: current objective clinical presentation, good overall health status, acuteness of condition, positive past response to therapy, within-session changes, good support system/ coping skills He will benefit from continued skilled therapy services to meet the updated goals for this plan of care as noted below. Updated: 01/25/23 and 02/23/23 and 03/21/23 and 04/21/23 and 05/19/23 and 06/16/23 Goals for Episode of Care: created on 01/02/23 through 04/24/23 Phase 1 to Phase 2 Criteria: Criterion for Progression: Complete 20 straight leg raises with no quadriceps lag. - MET Range of motion Full active knee extension (within 3 degrees) Active Flexion to 110 degrees. - MET Full quadriceps activation: full, without visual inhibition. - MET Normalized Gait. - MET Discontinuation of Crutch/Immobilizer devices. - Partially MET Phase 2 to Phase 3 Criteria: Criterion for Progression: Range of motion: full, equal to contralateral. - MET Stairs: 10-12 steps, ascent/descent in a reciprocal pattern with (6-8 height). - MET Double leg squat: 60-90 degree bend, equal weight bearing, proper mechanics. - MET Demonstrates functional strength and control with performing daily activities. - MET Phase 3 to Phase 4 Criteria: Criterion for Progression: Range of Motion: maintained full and equal to contralateral limb - MET Strength symmetry testin% symmetry using any of the following methods: Dynamometer testing - Partially MET, will continue, especially R hamstrings Motor control: 6 inch eccentric step-downs with heel tap, 20 reps, proper Mechanics. - MET Hopping in place: double leg and single leg, no pain, proper mechanics. - Partially MET, will continue Outcomes: IKDC greater than or equal to 7, ADL-RSI greater than or equal to 50-60 score. - MET Phase 4 to Phase 5 Criteria: Criterion for Progression: Maximum vertical jump without pain or instability. - Partially MET, will continue 80% of contralateral on single hop tests. - Partially MET, will continue (currently 67%) Normalized running. - Partially MET, will continue Y-balance - anterior reach: less than 4 cm asymmetry. - MET Strength: 85% symmetry. - Partially MET, will continue IKDC Question (Global Rating of Knee Function) score of 8 or greater. - Partially MET, will continue Phase 5 to Return to Sport Criteria: Criterion for Progression: Strength: Greater than or equal to 90% symmetry. Hop testin% symmetry with proper mechanics. Pain free transition to activities and no functional complaints. Confidence when running, cutting, jumping at full speed. IKDC Question (Global Rating of Knee Function) of > 9. Patient Goals: regain prior functional status and play ultimate frisbee Patient Goals: regain prior functional status and play ultimate frisbee Planned Interventions, Frequency, and Duration: 1x every other week, 6 weeks Total Number of Visits Planned: 3 Patient to be seen for Therapeutic exercise (14082), Neuromuscular re-education (18258), Therapeutic activities (25278), Self-penitentiary management (85059), Gait Training (26615), Patient/Family/Caregiver Education, Body Mechanics Training, General Conditioning PLAN FOR NEXT VISIT: Phase 4 Negrete protocol. Progress to tolerance. Classification ACL-RSI Raw Score: 960 ACL-RSI Final Score %: 80 IKDC #10: 8 SUBJECTIVE: Pt reports that overall he is doing well but not significantly different from last session. He reports that he has not been pushing it. He feels that his progress has leveled off. He denies any pain to start today and overall states, I feel good today. He denies any functional limitations for basic ADLs. He is not currently running or participating in sports but by choice, not inability. He reports that he is still being cautious. Patient Goals: regain prior functional status and play ultimate frisbee Functional Limitations: recreational activities, physical activities, running, jumping, squatting Prior Level of Function: Independent without limitations Pain: Pain Pain Level: 0 Pain Location: Knee - Right Description: (no pain to start today) Frequency: Intermittent Post Treatment Pain Post Treatment Pain Level: No Change Post Treatment Pain Location: Knee - Right Post Treatment Symptoms: After session, pt reported fatigue from a good workout but he denied any increase in pain PROMIS Scales Higher is Better 06/14/2023 05/09/2023 04/11/2023 Phys Func - Score 51 (within normal limits) 47 (within normal limits) 46 (within normal limits) Phys Func - Percentile 54 % 38 % 34 % Self-Eff Symptom - Score 51 (Average) 46 (Average) 48 (Average) Self-Eff Symptom - Percentile 54 % 34 % 42 % T-scores: mean of general population = 50. 5 points is clinically meaningfully difference Percentiles provide an indication of how the patient's score ranks in relation to the general population. Higher percentile rankings indicate better function/quality of life. 50th percentile is the average of the general population and indicates half of respondents had a worse score. OBJECTIVE MEASURES WITH LEVEL OF FUNCTION: Knee Observations R Circumference 6 inches above mid-patella (inches): 16.5 inches R Circumference mid patella (inches): 14.75 inches R Circumference 6 inches below mid-patella (inches): 14 inches LE AROM R LE AROM: supine R Knee Extension: 0 Degrees R Knee Flexion: 144 Degrees LE Strength R LE Strength: R SLS lateral step down 2x20 with good control but visible fatigue Dynamometer Strength Right Quadriceps Strength (lbs): 50.3 Left Quadriceps Strength (lbs): 55.7 Quad Strength Limb Symmetry Index (%): 90.31 Right Hamstring Strength (lbs): 32.7 Left Hamstring Strength (lbs): 54.1 Hamstring Strength Limb Symmetry Index(%): 60.44 Right Hip Abduction Strength (lbs): 33.1 Left Hip Abduction Strength (lbs): 38.1 Functional Strength R SL Press Weight : 160 R SL Press Reps : 4 R SL Press 1 RM (calc): 181.31 L SL Press Weight : 160 L SL Press Reps : 10 L SL Press 1 RM (calc): 213.28 Gait Gait Observation: normal Hop - Single Leg Hop for Distance R Single Leg Hop for Distance (cm) Trial 1: 56 cm R Single Leg Hop for Distance (cm) Trial 2: 56 cm R Single Leg Hop for Distance (cm) Trial 3: 56 cm R Single-Leg Hop for Distance Average: 56 L Single Leg Hop for Distance (cm) Trial 1: 83 cm L Single Leg Hop for Distance (cm) Trial 2: 83 cm L Single Leg Hop for Distance (cm) Trial 3: 83 cm L Single-Leg Hop for Distance Average: 83 Distance Ratio: 67.47 TREATMENT: [facility]: ACL ACL Phase: Phase 4: Advanced Training Phase Therapeutic Exercise: 1: Upright bike seat #7 level #8 x5 minutes. (Pt provided an update on his condition and subjective portion of goals assessed.) [facility] 3: squats on platform side of BOSU 3x15 4: R leg press 136# 3x10 (discomfort) 5: R HS curl machine 80# 3x10 6: *seated t-band HS curl added to HEP (Pt declined t-band because he has some at home.) 7: Re-assessment completed including single leg hop for distance, 1RM on leg press, dynamometer and ROM measurements. These results were reviewed with pt and used as rationale for plan of care recommendations. 8: HEP reviewed and continuation encouraged. Skilled Intervention: Patient was educated in proper exercise technique and purpose for exercises. Reviewed and educated patient on additions/changes for home exercise program as above (*). Skilled judgment was used in selection of appropriate interventions. Provided written instruction for home exercise program to facilitate proper performance and compliance. Correct performance of therapeutic exercises was facilitated with verbal, visual, and tactile cuing. Patient education as noted. Billing Therapeutic Exercise Treatment Minutes: 45 Skilled Treatment Time Minutes (timed and untimed codes): 45 Total Session Time (minutes): 45 Session Start Time : 1300 Session Stop Time : 1345 Maurice Pope PT documented in this encounter [facility] 06-02-2023 Note HNO ID: [id number] Author: Maurice Pope PT Service: ? Author Type: Physical Therapist Type: Progress Notes Filed: 06/02/2023 2:58 PM Note Text: Episode Visit Count: 31 Therapist That Will Accept/Oversee The Plan Of Care: Maurice Pope Start of Care Date: 01/02/23 Onset Date: 11/04/22 Plan of Care Certification Date: 12/16/22 Patient Identified by Name and Date of : Yes REHABILITATION AND SPORTS THERAPY PHYSICAL THERAPY TREATMENT NOTE ASSESSMENT: Terry Smith tolerated the session with fatigue and expected muscle soreness. He demonstrated difficulty with jogging on treadmill . The patient will continue to benefit from ongoing skilled physical therapy to progress toward set goals. PLAN FOR NEXT VISIT: Phase 4 Negrete protocol. Progress to tolerance. SUBJECTIVE: Pt reports that today is a good day. Pt states aching pain during the night. Pt feels he has plateaued. Pt has been more active functionally remodeling his living room. Pain: Pain Pain Level: 0 Pain Location: Knee - Right Frequency: Intermittent Post Treatment Pain Post Treatment Pain Location: Knee - Right Post Treatment Symptoms: Pt reported discomfort in R knee at end of session. OBJECTIVE MEASURES WITH LEVEL OF FUNCTION: TREATMENT: ACL Phase: Phase 4: Advanced Training Phase Therapeutic Exercise: 1: Upright bike seat #7 level #8 x5 minutes. (Pt provided an update on his condition and subjective portion of goals assessed.) 2: [employer] black hole program level 5 x5 minutes 3: Treadmill: 3 minute at 2 mph, 30 seconds at 4.5mph and 2 minute at 2 mph (discontinued at 4.5 mph due to pt stating my knee doesn't feel right and foot slap present on RLE) 4: R leg press 112# 2x15 (discomfort) 5: Multi-hip machine 90# B hip flexion, extension and abduction x15 each 6: purple t-band around ankles monster walking, B side stepping and retro Monster walk x2 laps 7: R HS curl machine 70# 2x15 8: lateral step ups on and over dome side of BOSU 2x10 9: R HS stool scoots two laps around equipment. 10: squats on platform side of BOSU 2x15 Skilled Intervention: Patient was educated in proper exercise technique and purpose for exercises. Skilled judgment was used in selection of appropriate interventions. Correct performance of therapeutic exercises was facilitated with verbal and visual cuing. Billing Therapeutic Exercise Treatment Minutes: 44 Skilled Treatment Time Minutes (timed and untimed codes): 44 Total Session Time (minutes): 44 Session Start Time : 1358 Session Stop Time : 1442 Beverly Duran, MARY Pope, ROSEMARY [facility] 06-02-2023 History of Presen t illness Narrative Episode Visit Count: 31 Therapist That Will Accept/Oversee The Plan Of Care: Maurice Pope Start of Care Date: 01/02/23 Onset Date: 11/04/22 Plan of Care Certification Date: 12/16/22 Patient Identified by Name and Date of : Yes REHABILITATION AND SPORTS THERAPY PHYSICAL THERAPY TREATMENT NOTE ASSESSMENT: Terry Smith tolerated the session with fatigue and expected muscle soreness. He demonstrated difficulty with jogging on treadmill . The patient will continue to benefit from ongoing skilled physical therapy to progress toward set goals. PLAN FOR NEXT VISIT: Phase 4 Negrete protocol. Progress to tolerance. SUBJECTIVE: Pt reports that today is a good day. Pt states aching pain during the night. Pt feels he has plateaued. Pt has been more active functionally remodeling his living room. Pain: Pain Pain Level: 0 Pain Location: Knee - Right Frequency: Intermittent Post Treatment Pain Post Treatment Pain Location: Knee - Right Post Treatment Symptoms: Pt reported discomfort in R knee at end of session. OBJECTIVE MEASURES WITH LEVEL OF FUNCTION: TREATMENT: ACL Phase: Phase 4: Advanced Training Phase Therapeutic Exercise: 1: Upright bike seat #7 level #8 x5 minutes. (Pt provided an update on his condition and subjective portion of goals assessed.) 2: [employer] black hole program level 5 x5 minutes 3: Treadmill: 3 minute at 2 mph, 30 seconds at 4.5mph and 2 minute at 2 mph (discontinued at 4.5 mph due to pt stating my knee doesn't feel right and foot slap present on RLE) 4: R leg press 112# 2x15 (discomfort) 5: Multi-hip machine 90# B hip flexion, extension and abduction x15 each 6: purple t-band around ankles monster walking, B side stepping and retro Monster walk x2 laps 7: R HS curl machine 70# 2x15 8: lateral step ups on and over dome side of BOSU 2x10 9: R HS stool scoots two laps around equipment. 10: squats on platform side of BOSU 2x15 Skilled Intervention: Patient was educated in proper exercise technique and purpose for exercises. Skilled judgment was used in selection of appropriate interventions. Correct performance of therapeutic exercises was facilitated with verbal and visual cuing. Billing Therapeutic Exercise Treatment Minutes: 44 Skilled Treatment Time Minutes (timed and untimed codes): 44 Total Session Time (minutes): 44 Session Start Time : 1358 Session Stop Time : 1442 MARY Noe PT documented in this encounter [facility] 05-19-2023 Note HNO ID: [id number] Author: Maurice Pope PT Service: ? Author Type: Physical Therapist Type: Progress Notes Filed: 05/19/2023 6:12 PM Note Text: Episode Visit Count: 30 Therapist That Will Accept/Oversee The Plan Of Care: Maurice Pope Start of Care Date: 01/02/23 Onset Date: 11/04/22 Plan of Care Certification Date: 12/16/22 Patient Identified by Name and Date of : Yes REHABILITATION AND SPORTS THERAPY PHYSICAL THERAPY PROGRESS REPORT PLAN OF CARE UPDATE: Assessment: Terry Smith demonstrates significant improvement in walking, stair negotiation, physical activities, recreational activities, squatting, and working . He has progressed toward goals. Patient continues to present with impairments in balance, coordination, overall function, range of motion, strength, and symptom management that interfere with recreational activities, physical activities, running, jumping, squatting . Current prognosis is Excellent due to: current objective clinical presentation, good overall health status, acuteness of condition, positive past response to therapy, within-session changes, good support system/ coping skills. He will benefit from continued skilled therapy services to meet the updated goals for this plan of care as noted below. Updated: 01/25/23 and 02/23/23 and 03/21/23 and 04/21/23 and 05/19/23 Goals for Episode of Care: created on 01/02/23 through 04/24/23 Phase 1 to Phase 2 Criteria: Criterion for Progression: Complete 20 straight leg raises with no quadriceps lag. - MET Range of motion Full active knee extension (within 3 degrees) Active Flexion to 110 degrees. - MET Full quadriceps activation: full, without visual inhibition. - MET Normalized Gait. - MET Discontinuation of Crutch/Immobilizer devices. - Partially MET Phase 2 to Phase 3 Criteria: Criterion for Progression: Range of motion: full, equal to contralateral. - MET Stairs: 10-12 steps, ascent/descent in a reciprocal pattern with (6-8 height). - MET Double leg squat: 60-90 degree bend, equal weight bearing, proper mechanics. - MET Demonstrates functional strength and control with performing daily activities. - MET Phase 3 to Phase 4 Criteria: Criterion for Progression: Range of Motion: maintained full and equal to contralateral limb - MET Strength symmetry testin% symmetry using any of the following methods: Dynamometer testing - Partially MET Motor control: 6 inch eccentric step-downs with heel tap, 20 reps, proper Mechanics. - MET Hopping in place: double leg and single leg, no pain, proper mechanics. - Partially MET Outcomes: IKDC greater than or equal to 7, ADL-RSI greater than or equal to 50-60 score. - MET Phase 4 to Phase 5 Criteria: Criterion for Progression: Maximum vertical jump without pain or instability. - Partially MET 80% of contralateral on single hop tests. - Not MET Normalized running. - Partially MET but just tested for the first time Y-balance - anterior reach: less than 4 cm asymmetry. - MET Strength: 85% symmetry. - Partially MET IKDC Question (Global Rating of Knee Function) score of 8 or greater. - MET Phase 5 to Return to Sport Criteria: Criterion for Progression: Strength: Greater than or equal to 90% symmetry. Hop testin% symmetry with proper mechanics. Pain free transition to activities and no functional complaints. Confidence when running, cutting, jumping at full speed. IKDC Question (Global Rating of Knee Function) of > 9. Patient Goals: regain prior functional status and play ultimate frisbee Patient Goals: regain prior functional status and play ultimate frisbee Planned Interventions, Frequency, and Duration: 1x every other week, 8 weeks Total Number of Visits Planned: 4 Patient to be seen for Therapeutic exercise (14602), Neuromuscular re-education (34666), Therapeutic activities (28873), Self-penitentiary management (67473), Gait Training (20260), Patient/Family/Caregiver Education, Body Mechanics Training, General Conditioning PLAN FOR NEXT VISIT: Phase 4 Negrete protocol. Progress to tolerance. Classification ACL-RSI Raw Score: 830 ACL-RSI Final Score %: 69.17 IKDC #10: 9 SUBJECTIVE: Pt reports that overall he is doing well and getting progressively better. He reports that the progress is not as fast as he would like, but improving. He denies any pain currently, just some new found clicking. He reports compliance with HEP 2x day. He feels that the intensity of the last workout was appropriate. Patient Goals: regain prior functional status and play ultimate frisbee Functional Limitations: recreational activities, physical activities, running, jumping, squatting Prior Level of Function: Independent without limitations Intake Information: Prescription present Pain: Pain Pain Level: 0 Pain Location: Knee - Right Description: (no pain to start today) Frequency: Intermittent Post Treatment Pain Post Treatment Pain Leve (more content not included)... [facility] 05-19-2023 History of Presen t illness Narrative Episode Visit Count: 30 Therapist That Will Accept/Oversee The Plan Of Care: Maurice Pope Start of Care Date: 01/02/23 Onset Date: 11/04/22 Plan of Care Certification Date: 12/16/22 Patient Identified by Name and Date of : Yes REHABILITATION AND SPORTS THERAPY PHYSICAL THERAPY PROGRESS REPORT PLAN OF CARE UPDATE: Assessment: Terry Smith demonstrates significant improvement in walking, stair negotiation, physical activities, recreational activities, squatting, and working . He has progressed toward goals. Patient continues to present with impairments in balance, coordination, overall function, range of motion, strength, and symptom management that interfere with recreational activities, physical activities, running, jumping, squatting . Current prognosis is Excellent due to: current objective clinical presentation, good overall health status, acuteness of condition, positive past response to therapy, within-session changes, good support system/ coping skills. He will benefit from continued skilled therapy services to meet the updated goals for this plan of care as noted below. Updated: 01/25/23 and 02/23/23 and 03/21/23 and 04/21/23 and 05/19/23 Goals for Episode of Care: created on 01/02/23 through 04/24/23 Phase 1 to Phase 2 Criteria: Criterion for Progression: Complete 20 straight leg raises with no quadriceps lag. - MET Range of motion Full active knee extension (within 3 degrees) Active Flexion to 110 degrees. - MET Full quadriceps activation: full, without visual inhibition. - MET Normalized Gait. - MET Discontinuation of Crutch/Immobilizer devices. - Partially MET Phase 2 to Phase 3 Criteria: Criterion for Progression: Range of motion: full, equal to contralateral. - MET Stairs: 10-12 steps, ascent/descent in a reciprocal pattern with (6-8 height). - MET Double leg squat: 60-90 degree bend, equal weight bearing, proper mechanics. - MET Demonstrates functional strength and control with performing daily activities. - MET Phase 3 to Phase 4 Criteria: Criterion for Progression: Range of Motion: maintained full and equal to contralateral limb - MET Strength symmetry testin% symmetry using any of the following methods: Dynamometer testing - Partially MET Motor control: 6 inch eccentric step-downs with heel tap, 20 reps, proper Mechanics. - MET Hopping in place: double leg and single leg, no pain, proper mechanics. - Partially MET Outcomes: IKDC greater than or equal to 7, ADL-RSI greater than or equal to 50-60 score. - MET Phase 4 to Phase 5 Criteria: Criterion for Progression: Maximum vertical jump without pain or instability. - Partially MET 80% of contralateral on single hop tests. - Not MET Normalized running. - Partially MET but just tested for the first time Y-balance - anterior reach: less than 4 cm asymmetry. - MET Strength: 85% symmetry. - Partially MET IKDC Question (Global Rating of Knee Function) score of 8 or greater. - MET Phase 5 to Return to Sport Criteria: Criterion for Progression: Strength: Greater than or equal to 90% symmetry. Hop testin% symmetry with proper mechanics. Pain free transition to activities and no functional complaints. Confidence when running, cutting, jumping at full speed. IKDC Question (Global Rating of Knee Function) of > 9. Patient Goals: regain prior functional status and play ultimate frisbee Patient Goals: regain prior functional status and play ultimate frisbee Planned Interventions, Frequency, and Duration: 1x every other week, 8 weeks Total Number of Visits Planned: 4 Patient to be seen for Therapeutic exercise (24307), Neuromuscular re-education (11702), Therapeutic activities (19679), Self-penitentiary management (61389), Gait Training (64185), Patient/Family/Caregiver Education, Body Mechanics Training, General Conditioning PLAN FOR NEXT VISIT: Phase 4 Negrete protocol. Progress to tolerance. Classification ACL-RSI Raw Score: 830 ACL-RSI Final Score %: 69.17 IKDC #10: 9 SUBJECTIVE: Pt reports that overall he is doing well and getting progressively better. He reports that the progress is not as fast as he would like, but improving. He denies any pain currently, just some new found clicking. He reports compliance with HEP 2x day. He feels that the intensity of the last workout was appropriate. Patient Goals: regain prior functional status and play ultimate frisbee Functional Limitations: recreational activities, physical activities, running, jumping, squatting Prior Level of Function: Independent without limitations Intake Information: Prescription present Pain: Pain Pain Level: 0 Pain Location: Knee - Right Description: (no pain to start today) Frequency: Intermittent Post Treatment Pain Post Treatment Pain Level: No Change Post Treatment Pain Location: Knee - Right Post Treatment Pain Description: (Fatigue only) Post Treatment Symptoms: During and after session pt reported considerable fatigue but no increase in pain. PROMIS Scales Higher is Better 05/09/2023 04/11/2023 03/13/2023 Phys Func - Score 47 (within normal limits) 46 (within normal limits) 45 (within normal limits) Phys Func - Percentile 38 % 34 % 31 % Self-Eff Symptom - Score 46 (Average) 48 (Average) 48 (Average) Self-Eff Symptom - Percentile 34 % 42 % 42 % T-scores: mean of general population = 50. 5 points is clinically meaningfully difference Percentiles provide an indication of how the patient's score ranks in relation to the general population. Higher percentile rankings indicate better function/quality of life. 50th percentile is the average of the general population and indicates half of respondents had a worse score. OBJECTIVE MEASURES WITH LEVEL OF FUNCTION: LE AROM R LE AROM: supine R Knee Extension: 3 Degrees R Knee Flexion: 144 Degrees LE Strength R LE Strength: R SLS lateral step down 2x20 with good control but visible fatigue Dynamometer Strength Right Quadriceps Strength (lbs): 77.5 Left Quadriceps Strength (lbs): 86.2 Quad Strength Limb Symmetry Index (%): 89.91 Right Hamstring Strength (lbs): 46 Left Hamstring Strength (lbs): 59.8 Hamstring Strength Limb Symmetry Index(%): 76.92 Right Hip Abduction Strength (lbs): 39.9 (82% of uninvolved) Left Hip Abduction Strength (lbs): 48.6 Gait Gait Observation: normal TREATMENT: Carepath: ACL ACL Phase: Phase 4: Advanced Training Phase Therapeutic Exercise: 1: Upright bike seat #7 level #8 x5 minutes. (Pt provided an update on his condition and subjective portion of goals assessed.) 2: [employer] black hole program level 5 x5 minutes (Pt provided an update on his condition during) 3: re-assessment results were reviewed with patient and used as rationale for plan of care recommendations. 4: squats on platform side of BOSU 2x15 5: R leg press 112# 2x15 6: R HS curl machine 70# 2x15 7: Multi-hip machine 90# B hip flexion, extension and abduction x10 each 8: lateral step down heel taps 2x10 as test and treatment 9: R HS stool scoots two laps around equipment. 10: purple t-band around ankles monster walking, B side stepping and retro Monster walk x2 laps Skilled Intervention: Patient was educated in proper exercise technique and purpose for exercises. Skilled judgment was provided in selection of appropriate interventions. Correct performance of therapeutic exercises was facilitated with verbal and visual cuing. Patient education as noted. Billing Therapeutic Exercise Treatment Minutes: 43 Skilled Treatment Time Minutes (timed and untimed codes): 43 Total Session Time (minutes): 43 Session Start Time : 1400 Session Stop Time : 1443 Maurice Pope PT documented in this encounter [facility] 05-19-2023 Note HNO ID: [id number] Author: Doug Peres MD Service: ? Author Type: Physician Type: Progress Notes Filed: 05/19/2023 12:46 PM Note Text: This note was created using [email or web address]. Subjective Patient presents with: ear redness ADHD - Combined Immunizations: Flu vaccination Terry Smith is a 37 year old male. He had chronic psoriasis controlled with topical medications prescribed by dermatology last year. He used these sparingly and requested refills at this time, as he had no dermatology follow up planned. He's had some stressors and insomnia for the past few weeks that impacted his mood. This was improving with behavioral measures, and he preferred to self manage as much as possible. However, he continued to have difficulties with poor concentration and focus that had been progressing for several years. He was diagnosed 6 years ago with ADHD. He was prescribed Adderall but did not take the medication for more than one week. He was now willing to try medication again for this issue, as this was impacting his work and activities of daily living. Review of Systems Skin: Positive for rash. Psychiatric/Behavioral: Positive for behavioral problems, decreased concentration and dysphoric mood. Negative for self-injury, sleep disturbance and suicidal ideas. The patient is nervous/anxious. ACTIVE PROBLEM LIST Allergic Rhinitis Bruxism Psoriasis Left Anterior Cruciate Ligament Tear Rupture of Anterior Cruciate Ligament of Right Knee Social History Tobacco Use Smoking status: Never Smokeless tobacco: Never Substance Use Topics Alcohol use: Not Currently Comment: 2-3 drinks 2-3 x / wk Drug use: Never Objective BP 108/72 Pulse 81 Resp 18 Wt 76.2 kg (168 lb) SpO2 98% BMI 22.12 kg/m? Physical Exam Constitutional: Appearance: He is not ill-appearing. Skin: Comments: Small psoriatic patches in both external ears, groin areas. Larger patch of the left elbow. Neurological: Mental Status: He is alert. Psychiatric: Attention and Perception: Attention normal. Mood and Affect: Mood is anxious. Speech: Speech normal. Behavior: Behavior normal. Thought Content: Thought content normal. GERMAIN-7 ANXIETY SCALE 05/19/2023 FEELING NERVOUS,ANXIOUS,OR ON EDGE 2 Over half the days NOT BEING ABLE TO STOP OR CONTROL WORRYING 2 Over half the days WORRYING TOO MUCH ABOUT DIFFERENT THINGS 2 Over half the days TROUBLE RELAXING 1 Several days BEING SO RESTLESS THAT IT'S HARD TO SIT STILL 1 Several days BEING EASILY ANNOYED OR IRRITABLE 2 Over half the days FEELING AFRAID IF SOMETHING AWFUL MIGHT HAPPEN 1 Several days GAD7 SCORE 11 IF YOU CHECKED OFF ANY PROBLEMS Somewhat difficult CP PHQ9 05/19/2023 Little interest or pleasure 1 - Several days Feeling down, depressed, hopeless 1 - Several days Trouble falling or staying asleep, sleeping too much 1 - Several days Feeling tired, having little energy 1 - Several days Poor appetite or overeating 1 - Several days Feeling bad about yourself, failure or you have let yourself/family down 1 - Several days Trouble concentrating on things 2 - More than half the days Moving or speaking so slowly, or fidgety or restless 2 - More than half the days Thoughts that you would be better off , or of hurting yourself in some way 0 - Not at all How difficult have these problems made things Somewhat difficult Interpretation of Total Score 10-14 Moderate depression Adult ADD 05/19/2023 Trouble wrapping up final details of projects 4 - Very Often Difficulty getting order on tasks requiring organization 3 - Often Have problems remembering appts/obligations 3 - Often Avoid/delay tasks requiring a lot of thought 4 - Very Often Fidget/squirm when sitting a long time 2 - Sometimes Feel overly active/compelled to do things 3 - Often Part A - Total 19 Careless Mistakes on boring/difficult projects 3 - Often Difficult keeping attention on boring/repetitive work 3 - Often Difficulty concentrating on what people say 4 - Very Often Misplace/difficulty finding things at home/work 3 - Often Distracted by activity/noise 3 - Often Leave your seat when expected to remain seated 2 - Sometimes Feel restless/fidgety 2 - Sometimes Difficulty unwinding/relaxing when you have time 3 - Often Talk too much in social situations 2 - Sometimes Finish other's sentences 2 - Sometimes Difficulty waiting your turn 2 - Sometimes Interrupt others when they are busy 3 - Often Part B - Total 32 Assessment and Plan 1. ADHD (attention deficit hyperactivity disorder), combined type - ICD9: 314.01, ICD10: F90.2 (primary diagnosis) Shared Medical Decision Making was done: Medication: Adderall. Benefits: Medication may help in the short term and in the coater. Risks: Possible side effects were discussed including insomnia, anxiety. Possible interactions: n/a. Warnings: dependence, abuse. Approved use or off label use: (more content not included)... [facility] 05-19-2023 History of Presen t illness Narrative This note was created using [email or web address]. Subjective Patient presents with: ear redness ADHD - Combined Immunizations: Flu vaccination Terry Smith is a 37 year old male. He had chronic psoriasis controlled with topical medications prescribed by dermatology last year. He used these sparingly and requested refills at this time, as he had no dermatology follow up planned. He's had some stressors and insomnia for the past few weeks that impacted his mood. This was improving with behavioral measures, and he preferred to self manage as much as possible. However, he continued to have difficulties with poor concentration and focus that had been progressing for several years. He was diagnosed 6 years ago with ADHD. He was prescribed Adderall but did not take the medication for more than one week. He was now willing to try medication again for this issue, as this was impacting his work and activities of daily living. Review of Systems Skin: Positive for rash. Psychiatric/Behavioral: Positive for behavioral problems, decreased concentration and dysphoric mood. Negative for self-injury, sleep disturbance and suicidal ideas. The patient is nervous/anxious. ACTIVE PROBLEM LIST Allergic Rhinitis Bruxism Psoriasis Left Anterior Cruciate Ligament Tear Rupture of Anterior Cruciate Ligament of Right Knee Social History Tobacco Use Smoking status: Never Smokeless tobacco: Never Substance Use Topics Alcohol use: Not Currently Comment: 2-3 drinks 2-3 x / wk Drug use: Never Objective BP 108/72 Pulse 81 Resp 18 Wt 76.2 kg (168 lb) SpO2 98% BMI 22.12 kg/m Physical Exam Constitutional: Appearance: He is not ill-appearing. Skin: Comments: Small psoriatic patches in both external ears, groin areas. Larger patch of the left elbow. Neurological: Mental Status: He is alert. Psychiatric: Attention and Perception: Attention normal. Mood and Affect: Mood is anxious. Speech: Speech normal. Behavior: Behavior normal. Thought Content: Thought content normal. GERMAIN-7 ANXIETY SCALE 05/19/2023 FEELING NERVOUS,ANXIOUS,OR ON EDGE 2 Over half the days NOT BEING ABLE TO STOP OR CONTROL WORRYING 2 Over half the days WORRYING TOO MUCH ABOUT DIFFERENT THINGS 2 Over half the days TROUBLE RELAXING 1 Several days BEING SO RESTLESS THAT IT'S HARD TO SIT STILL 1 Several days BEING EASILY ANNOYED OR IRRITABLE 2 Over half the days FEELING AFRAID IF SOMETHING AWFUL MIGHT HAPPEN 1 Several days GAD7 SCORE 11 IF YOU CHECKED OFF ANY PROBLEMS Somewhat difficult CP PHQ9 05/19/2023 Little interest or pleasure 1 - Several days Feeling down, depressed, hopeless 1 - Several days Trouble falling or staying asleep, sleeping too much 1 - Several days Feeling tired, having little energy 1 - Several days Poor appetite or overeating 1 - Several days Feeling bad about yourself, failure or you have let yourself/family down 1 - Several days Trouble concentrating on things 2 - More than half the days Moving or speaking so slowly, or fidgety or restless 2 - More than half the days Thoughts that you would be better off , or of hurting yourself in some way 0 - Not at all How difficult have these problems made things Somewhat difficult Interpretation of Total Score 10-14 Moderate depression Adult ADD 05/19/2023 Trouble wrapping up final details of projects 4 - Very Often Difficulty getting order on tasks requiring organization 3 - Often Have problems remembering appts/obligations 3 - Often Avoid/delay tasks requiring a lot of thought 4 - Very Often Fidget/squirm when sitting a long time 2 - Sometimes Feel overly active/compelled to do things 3 - Often Part A - Total 19 Careless Mistakes on boring/difficult projects 3 - Often Difficult keeping attention on boring/repetitive work 3 - Often Difficulty concentrating on what people say 4 - Very Often Misplace/difficulty finding things at home/work 3 - Often Distracted by activity/noise 3 - Often Leave your seat when expected to remain seated 2 - Sometimes Feel restless/fidgety 2 - Sometimes Difficulty unwinding/relaxing when you have time 3 - Often Talk too much in social situations 2 - Sometimes Finish other's sentences 2 - Sometimes Difficulty waiting your turn 2 - Sometimes Interrupt others when they are busy 3 - Often Part B - Total 32 Assessment and Plan 1. ADHD (attention deficit hyperactivity disorder), combined type - ICD9: 314.01, ICD10: F90.2 (primary diagnosis) Shared Medical Decision Making was done: Medication: Adderall. Benefits: Medication may help in the short term and in the half-way. Risks: Possible side effects were discussed including insomnia, anxiety. Possible interactions: n/a. Warnings: dependence, abuse. Approved use or off label use: approved. Options: treatment of mood disorder, bupropion off label. - DEXTROAMPHETAMINE-AMPHETAMINE ER 10 MG 24HR CAPSULE,EXTEND RELEASE 2. Psoriasis - ICD9: 696.1, ICD10: L40.9 Controlled. Refilled. Consider dermatology follow up. - CALCIPOTRIENE 0.005 % TOPICAL CREAM - BETAMETHASONE VALERATE 0.1 % TOPICAL CREAM - BETAMETHASONE DIPROPIONATE 0.05 % TOPICAL CREAM 3. Need for influenza vaccination - ICD9: V04.81, ICD10: Z23 - INFLUENZA VACCINE, AGE 6 MO - 64 YR, QUADRIVALENT (AFLURIA, FLULAVAL, FLUZONE) 4. 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 He did not feel this was a significant issue. Doug Peres MD documented in this encounter [facility] 05-12-2023 Note HNO ID: [id number] Author: Maurice Pope PT Service: ? Author Type: Physical Therapist Type: Progress Notes Filed: 05/12/2023 2:54 PM Note Text: Episode Visit Count: 29 Therapist That Will Accept/Oversee The Plan Of Care: Maurice Pope Start of Care Date: 01/02/23 Onset Date: 11/04/22 Plan of Care Certification Date: 12/16/22 Patient Identified by Name and Date of : Yes REHABILITATION AND SPORTS THERAPY PHYSICAL THERAPY TREATMENT NOTE ASSESSMENT: Terry Smith tolerated the session with fatigue, expected muscle soreness, and no issues. He demonstrated improvements in exercise tolerance and strength without increased pain. The patient will continue to benefit from ongoing skilled physical therapy to progress toward set goals, for reassessment by supervising therapist, and to continue with post-operative protocol. PLAN FOR NEXT VISIT: Phase 4 Negrete protocol. Re-assess for plan of care update. SUBJECTIVE: Pt reports continued progressive improvements but that he has good days and bad days. He reports that 4 days ago he took 10,000 steps and the following day he had significant pain that he attributes to the increased activity. He reports seeing Dr. Reed earlier today and that this went very well. He reports that he is scheduled to see Dr. Reed in 2 months for follow up and that Dr. Reed leaves therapy plan of care up to the discretion of the therapist. Pain: Pain Pain Level: 0 Pain Location: Knee - Right Description: (no pain to start today) Frequency: Intermittent Post Treatment Pain Post Treatment Pain Level: No Change Post Treatment Pain Location: Knee - Right Post Treatment Pain Description: (fatigue only) Post Treatment Symptoms: After session today, pt reported fatigue from a good workout but he denied any increase in pain as he was leaving. OBJECTIVE MEASURES WITH LEVEL OF FUNCTION: Gait Gait Observation: Normal TREATMENT: Carepath: ACL ACL Phase: Phase 4: Advanced Training Phase Therapeutic Exercise: 1: Upright bike seat #7 level #8 x5 minutes. (Pt provided an update on his condition and subjective portion of goals assessed.) 2: [employer] program level 5 x5 minutes (Pt provided an update on his condition during) 3: Treadmill: 3 minute at 2 mph, 2 minutes at 4.5mph and 2 minute at 2 mph 4: squats on platform side of BOSU 2x10 5: R leg press 112# 2x15 6: R HS curl machine 70# 2x12 7: Multi-hip machine 80# B hip flexion, extension and abduction x15 each 8: lateral step ups on and over dome side of BOSU 2x10 9: R HS stool scoots two laps around equipment. 10: purple t-band around ankles monster walking, B side stepping and retro Monster walk x2 laps 11: jump training 3x10 in larger amplitude with emphasis on landing correctly with weight evenly distributed on both feet with use of mirror and verbal cues. He was urged to incorporate UEs into jumping to increase height and to land softly. Skilled Intervention: Patient was educated in proper exercise technique and purpose for exercises. Skilled judgment was provided in selection of appropriate interventions. Correct performance of therapeutic exercises was facilitated with verbal, visual, and tactile cuing. Patient education as noted. Billing Therapeutic Exercise Treatment Minutes: 46 Skilled Treatment Time Minutes (timed and untimed codes): 46 Total Session Time (minutes): 46 Session Start Time : 1402 Session Stop Time : 1448 Maurice Pope, PT [facility] 05-12-2023 Note HNO ID: [id number] Author: Jim Reed MD Service: ? Author Type: Physician Type: Progress Notes Filed: 05/12/2023 1:05 PM Note Text: DATE OF PROCEDURE: December 29, 2022 OPERATION: 1. Right knee arthroscopically-assisted anterior cruciate ligament reconstruction with quintuple stranded hamstring autograft 2. Diagnostic arthroscopy. 3. Examination under anesthesia. 4. Right knee partial lateral meniscectomy REF: Dr. Ahn Interval history: Terry Smith returns today status post right knee surgery. Chief complaint is pain. Patient states 4 days ago he walked 10,000 steps, felt significant medial knee pain 1-2 days later. Pain is now resolved, rates pain a 0/10 today. Patient states popping with extension has improved. Doing well . Review of Systems: CV: No chest pain Pulm: No short of breath HEENT: No head ache General: no fevers, chills, nausea/vomiting, malaise Physical Examination: This is a well appearing, well nourished patient in no acute distress. Head is normocephalic and atraumatic. White sclera and pink conjunctiva. Mucous membranes are moist. Breathes easily and has normal chest wall excursion. Affect is normal. right knee: solid gian's Range of motion: 0/0/2 finger breaths . Effusion: trace +. Incisions: healed . No infection. Imaging: none Impression: Terry Smith is a 37 year old male, who is 4 months and one week status post post right knee ACLR and partial lateral meniscectomy . Cautioned patient against any risky behavior Plan: 1- continue PT 2-follow up in 2 months By signing my name below, I Allyssa Winkler, attest that this documentation has been prepared under the direction and in the presence of Dr. Reed Electronically signed, Allyssa Winkler, Medical Student/Scribe May 12, 2023 10:58 AM I agree with the Chief Complaint, ROS, and Past Histories independently gathered by the clinical administrative support coordinator and the remaining scribed note accurately describes my personal service to the patient. Jim Reed MD [facility] 05-12-2023 History of Presen t illness Narrative DATE OF PROCEDURE: December 29, 2022 OPERATION: 1. Right knee arthroscopically-assisted anterior cruciate ligament reconstruction with quintuple stranded hamstring autograft 2. Diagnostic arthroscopy. 3. Examination under anesthesia. 4. Right knee partial lateral meniscectomy REF: Dr. Ahn Interval history: Terry Smith returns today status post right knee surgery. Chief complaint is pain. Patient states 4 days ago he walked 10,000 steps, felt significant medial knee pain 1-2 days later. Pain is now resolved, rates pain a 0/10 today. Patient states popping with extension has improved. Doing well . Review of Systems: CV: No chest pain Pulm: No short of breath HEENT: No head ache General: no fevers, chills, nausea/vomiting, malaise Physical Examination: This is a well appearing, well nourished patient in no acute distress. Head is normocephalic and atraumatic. White sclera and pink conjunctiva. Mucous membranes are moist. Breathes easily and has normal chest wall excursion. Affect is normal. right knee: solid gian's Range of motion: 0/0/2 finger breaths . Effusion: trace +. Incisions: healed . No infection. Imaging: none Impression: Terry Smith is a 37 year old male, who is 4 months and one week status post post right knee ACLR and partial lateral meniscectomy . Cautioned patient against any risky behavior Plan: 1- continue PT 2-follow up in 2 months By signing my name below, I Allyssa Peterson, attest that this documentation has been prepared under the direction and in the presence of Dr. Reed Electronically signed, Allyssa Winkler, Medical Student/Scribe May 12, 2023 10:58 AM I agree with the Chief Complaint, ROS, and Past Histories independently gathered by the clinical administrative support coordinator and the remaining scribed note accurately describes my personal service to the patient. Jim Reed MD documented in this encounter [facility] 05-05-2023 Note HNO ID: [id number] Author: Maurice Pope, PT Service: ? Author Type: Physical Therapist Type: Progress Notes Filed: 05/05/2023 2:56 PM Note Text: Episode Visit Count: 28 Therapist That Will Accept/Oversee The Plan Of Care: Maurice Pope Start of Care Date: 01/02/23 Onset Date: 11/04/22 Plan of Care Certification Date: 12/16/22 Patient Identified by Name and Date of : Yes REHABILITATION AND SPORTS THERAPY PHYSICAL THERAPY TREATMENT NOTE ASSESSMENT: Terry Smith tolerated the session with fatigue, expected muscle soreness, and no issues. He demonstrated improvements in exercise tolerance and confidence. He reports feeling significantly better with jogging on the treadmill today. The patient will continue to benefit from ongoing skilled physical therapy to progress toward set goals and to continue with post-operative protocol. PLAN FOR NEXT VISIT: Phase 4 Negrete protocol SUBJECTIVE: Pt reports continued progressive improvements. He reports that he has been increasing his step count for each day and doing more and more functionally. He denies any functional limitations with walking speed functionally. He reports intentionally increasing his walking speed with shopping, etc. He denies any pain to start today. Pain: Pain Pain Level: 0 Pain Location: Knee - Right Description: (no pain to start today) Frequency: Intermittent Post Treatment Pain Post Treatment Pain Level: No Change Post Treatment Pain Location: Knee - Right Post Treatment Pain Description: (Fatigue only) Post Treatment Symptoms: During and after session, pt reported fatigue but he denied any increase in pain OBJECTIVE MEASURES WITH LEVEL OF FUNCTION: Gait Gait Observation: Normal TREATMENT: Carepath: ACL ACL Phase: Phase 4: Advanced Training Phase Therapeutic Exercise: 1: Upright bike seat #7 level #8 x5 minutes. (Pt provided an update on his condition and subjective portion of goals assessed.) 2: [facility] black [facility] program level 5 x5 minutes (Pt provided an update on his condition during) 3: Treadmill: 1 minute at 1.5mph, 2.5 minutes at 4.5mph and 1 minute at 2 mph 4: squats on platform side of BOSU 2x15 5: R leg press 112# 2x15 6: R HS curl machine 70# 2x10 7: Multi-hip machine 80# B hip flexion, extension and abduction x15 each 8: lateral step ups on and over dome side of BOSU 2x15 9: R HS stool scoots two laps around equipment. 10: purple t-band around ankles monster walking, B side stepping and retro Monster walk x3 laps 11: jump training in larger amplitude with emphasis on landing correctly with weight evenly distributed on both feet with use of mirror and verbal cues. He was urged to incorporate UEs into jumping to increase height. Skilled Intervention: Patient was educated in proper exercise technique and purpose for exercises. Skilled judgment was provided in selection of appropriate interventions. Correct performance of therapeutic exercises was facilitated with verbal and visual cuing. Patient education as noted. Billing Therapeutic Exercise Treatment Minutes: 47 Skilled Treatment Time Minutes (timed and untimed codes): 47 Total Session Time (minutes): 47 Session Start Time : 1403 Session Stop Time : 1450 Maurice Pope PT [facility] 05-05-2023 History of Presen t illness Narrative Episode Visit Count: 28 Therapist That Will Accept/Oversee The Plan Of Care: Maurice Pope Start of Care Date: 01/02/23 Onset Date: 11/04/22 Plan of Care Certification Date: 12/16/22 Patient Identified by Name and Date of : Yes REHABILITATION AND SPORTS THERAPY PHYSICAL THERAPY TREATMENT NOTE ASSESSMENT: Terry Smith tolerated the session with fatigue, expected muscle soreness, and no issues. He demonstrated improvements in exercise tolerance and confidence. He reports feeling significantly better with jogging on the treadmill today. The patient will continue to benefit from ongoing skilled physical therapy to progress toward set goals and to continue with post-operative protocol. PLAN FOR NEXT VISIT: Phase 4 Negrete protocol SUBJECTIVE: Pt reports continued progressive improvements. He reports that he has been increasing his step count for each day and doing more and more functionally. He denies any functional limitations with walking speed functionally. He reports intentionally increasing his walking speed with shopping, etc. He denies any pain to start today. Pain: Pain Pain Level: 0 Pain Location: Knee - Right Description: (no pain to start today) Frequency: Intermittent Post Treatment Pain Post Treatment Pain Level: No Change Post Treatment Pain Location: Knee - Right Post Treatment Pain Description: (Fatigue only) Post Treatment Symptoms: During and after session, pt reported fatigue but he denied any increase in pain OBJECTIVE MEASURES WITH LEVEL OF FUNCTION: Gait Gait Observation: Normal TREATMENT: Carepath: ACL ACL Phase: Phase 4: Advanced Training Phase Therapeutic Exercise: 1: Upright bike seat #7 level #8 x5 minutes. (Pt provided an update on his condition and subjective portion of goals assessed.) 2: Stairmaster black hole program level 5 x5 minutes (Pt provided an update on his condition during) 3: Treadmill: 1 minute at 1.5mph, 2.5 minutes at 4.5mph and 1 minute at 2 mph 4: squats on platform side of BOSU 2x15 5: R leg press 112# 2x15 6: R HS curl machine 70# 2x10 7: Multi-hip machine 80# B hip flexion, extension and abduction x15 each 8: lateral step ups on and over dome side of BOSU 2x15 9: R HS stool scoots two laps around equipment. 10: purple t-band around ankles monster walking, B side stepping and retro Monster walk x3 laps 11: jump training in larger amplitude with emphasis on landing correctly with weight evenly distributed on both feet with use of mirror and verbal cues. He was urged to incorporate UEs into jumping to increase height. Skilled Intervention: Patient was educated in proper exercise technique and purpose for exercises. Skilled judgment was provided in selection of appropriate interventions. Correct performance of therapeutic exercises was facilitated with verbal and visual cuing. Patient education as noted. Billing Therapeutic Exercise Treatment Minutes: 47 Skilled Treatment Time Minutes (timed and untimed codes): 47 Total Session Time (minutes): 47 Session Start Time : 1403 Session Stop Time : 1450 Maurice oPpe PT documented in this encounter [facility] 04-28-2023 Note HNO ID: [id number] Author: Magdaleno Nice PT Service: ? Author Type: Physical Therapist Type: Progress Notes Filed: 04/28/2023 3:28 PM Note Text: Episode Visit Count: 27 Therapist That Will Accept/Oversee The Plan Of Care: Maurice Pope Start of Care Date: 01/02/23 Onset Date: 11/04/22 Plan of Care Certification Date: 12/16/22 Patient Identified by Name and Date of : Yes REHABILITATION AND SPORTS THERAPY PHYSICAL THERAPY TREATMENT NOTE ASSESSMENT: Terry Tin Smith tolerated the session with no issues. He demonstrated good form with the therapeutic exercises performed this session. Some mild pain in the knee with the leg press and jogging today, but this faded quickly after the exercises were completed. The patient will continue to benefit from ongoing skilled physical therapy to progress toward set goals. PLAN FOR NEXT VISIT: Phase 4 Negrete protocol SUBJECTIVE: Things are going well. No pain today. Some popping and cracking. Not clicking in the knee with steps still. Pain: Pain Pain Location: Knee - Right OBJECTIVE MEASURES WITH LEVEL OF FUNCTION: VC's to remain in lower ready stance with monster walks Pt able to maintain prone plank for 60 sec with 1 VC to raise hips higher to maintain proper alignment TREATMENT: Carepath: ACL ACL Phase: Phase 4: Advanced Training Phase Therapeutic Exercise: 1: Upright bike seat #7 level #8 x5 minutes. (Subjective taken) 3: Seated HS stretch 3 x 30 seconds RLE and LLE 5: R leg press 112# 2x12 6: R HS curl machine 60# x 17, 70# 2 x 10 reps 10: Purple t-band monster walking, B side stepping and retro Monster walk x2 laps 14: Treadmill: 1 minute at 2.0mph, 1.5 minute at 4.5mph and 1 minute at 2.0 mph (Some slight pain during this rated 2/10) 15: *Prone plank 2 x 60 sec 16: *SL RDL x 5 each leg (Tight HS limits ability to perform through typical ROM) 17: *Side-lunge onto BOSU x 15 reps Skilled Intervention: Patient was educated in proper exercise technique and purpose for exercises. Correct performance of therapeutic exercises was facilitated with verbal and visual cuing. Billing Therapeutic Exercise Treatment Minutes: 52 Skilled Treatment Time Minutes (timed and untimed codes): 52 Total Session Time (minutes): 52 Session Start Time : 1410 Session Stop Time : 1502 Magdaleno Nice PT [facility] 04-28-2023 History of Presen t illness Narrative Episode Visit Count: 27 Therapist That Will Accept/Oversee The Plan Of Care: Maurice Pope Start of Care Date: 01/02/23 Onset Date: 11/04/22 Plan of Care Certification Date: 12/16/22 Patient Identified by Name and Date of : Yes REHABILITATION AND SPORTS THERAPY PHYSICAL THERAPY TREATMENT NOTE ASSESSMENT: Terry Smith tolerated the session with no issues. He demonstrated good form with the therapeutic exercises performed this session. Some mild pain in the knee with the leg press and jogging today, but this faded quickly after the exercises were completed. The patient will continue to benefit from ongoing skilled physical therapy to progress toward set goals. PLAN FOR NEXT VISIT: Phase 4 Negrete protocol SUBJECTIVE: Things are going well. No pain today. Some popping and cracking. Not clicking in the knee with steps still. Pain: Pain Pain Location: Knee - Right OBJECTIVE MEASURES WITH LEVEL OF FUNCTION: VC's to remain in lower ready stance with monster walks Pt able to maintain prone plank for 60 sec with 1 VC to raise hips higher to maintain proper alignment TREATMENT: Carepath: ACL ACL Phase: Phase 4: Advanced Training Phase Therapeutic Exercise: 1: Upright bike seat #7 level #8 x5 minutes. (Subjective taken) 3: Seated HS stretch 3 x 30 seconds RLE and LLE 5: R leg press 112# 2x12 6: R HS curl machine 60# x 17, 70# 2 x 10 reps 10: Purple t-band monster walking, B side stepping and retro Monster walk x2 laps 14: Treadmill: 1 minute at 2.0mph, 1.5 minute at 4.5mph and 1 minute at 2.0 mph (Some slight pain during this rated 2/10) 15: *Prone plank 2 x 60 sec 16: *SL RDL x 5 each leg (Tight HS limits ability to perform through typical ROM) 17: *Side-lunge onto BOSU x 15 reps Skilled Intervention: Patient was educated in proper exercise technique and purpose for exercises. Correct performance of therapeutic exercises was facilitated with verbal and visual cuing. Billing Therapeutic Exercise Treatment Minutes: 52 Skilled Treatment Time Minutes (timed and untimed codes): 52 Total Session Time (minutes): 52 Session Start Time : 1410 Session Stop Time : 1502 Magdaleno Nice PT documented in this encounter [facility] 04-21-2023 Note HNO ID: [id number] Author: Maurice Pope PT Service: ? Author Type: Physical Therapist Type: Progress Notes Filed: 04/21/2023 4:31 PM Note Text: Episode Visit Count: 26 Therapist That Will Accept/Oversee The Plan Of Care: Maurice Pope Start of Care Date: 01/02/23 Onset Date: 11/04/22 Plan of Care Certification Date: 12/16/22 Patient Identified by Name and Date of : Yes REHABILITATION AND SPORTS THERAPY PHYSICAL THERAPY PROGRESS REPORT PLAN OF CARE UPDATE: Assessment: Terry Smith demonstrates moderate improvement in walking, stair negotiation, physical activities, recreational activities, running, jumping, and squatting. He has progressed toward goals. Patient continues to present with impairments in independence in exercise, overall function, range of motion, strength, and symptom management that interfere with . Current prognosis is Excellent due to: current objective clinical presentation, good overall health status, acuteness of condition, positive past response to therapy, within-session changes, good support system/ coping skills. He will benefit from continued skilled therapy services to meet the updated goals for this plan of care as noted below. Updated: 01/25/23 and 02/23/23 and 03/21/23 and 04/21/23 Goals for Episode of Care: created on 01/02/23 through 04/24/23 Phase 1 to Phase 2 Criteria: Criterion for Progression: Complete 20 straight leg raises with no quadriceps lag. - MET Range of motion Full active knee extension (within 3 degrees) Active Flexion to 110 degrees. - MET Full quadriceps activation: full, without visual inhibition. - MET Normalized Gait. - Partially MET Discontinuation of Crutch/Immobilizer devices. - Partially MET Phase 2 to Phase 3 Criteria: Criterion for Progression: Range of motion: full, equal to contralateral. - Partially MET Stairs: 10-12 steps, ascent/descent in a reciprocal pattern with (6-8 height). - MET Double leg squat: 60-90 degree bend, equal weight bearing, proper mechanics. - MET Demonstrates functional strength and control with performing daily activities. - MET Phase 3 to Phase 4 Criteria: Criterion for Progression: Range of Motion: maintained full and equal to contralateral limb - Partially MET Strength symmetry testin% symmetry using any of the following methods: Dynamometer testing - Partially MET Motor control: 6 inch eccentric step-downs with heel tap, 20 reps, proper Mechanics. - MET Hopping in place: double leg and single leg, no pain, proper mechanics. - Partially MET Outcomes: IKDC greater than or equal to 7, ADL-RSI greater than or equal to 50-60 score. - MET Phase 4 to Phase 5 Criteria: Criterion for Progression: Maximum vertical jump without pain or instability. - Partially MET 80% of contralateral on single hop tests. - Not MET Normalized running. - Partially MET but just tested for the first time Y-balance - anterior reach: less than 4 cm asymmetry. - MET Strength: 85% symmetry. - Partially MET IKDC Question (Global Rating of Knee Function) score of 8 or greater. - Partially MET Phase 5 to Return to Sport Criteria: Criterion for Progression: Strength: Greater than or equal to 90% symmetry. Hop testin% symmetry with proper mechanics. Pain free transition to activities and no functional complaints. Confidence when running, cutting, jumping at full speed. IKDC Question (Global Rating of Knee Function) of > 9. Patient Goals: regain prior functional status and play ultimate frisbee Planned Interventions, Frequency, and Duration: 1x/week, 4 weeks Total Number of Visits Planned: 4 Patient to be seen for Therapeutic exercise (37979), Neuromuscular re-education (65690), Therapeutic activities (50671), Self-penitentiary management (78563), Gait Training (68122), Patient/Family/Caregiver Education, Body Mechanics Training, General Conditioning PLAN FOR NEXT VISIT: NEGRETE protocol for phase 4 with consideration of progression to tolerance. Continue hop and/or jump training. Progress SLS balance activities. Consider running on treadmill, slide board and/or more SLS hopping. Classification ACL-RSI Raw Score: 840 ACL-RSI Final Score %: 70 IKDC #10: 7 SUBJECTIVE: Pt reports that overall he is making progress and improvement. He reports that the painful clicking on steps that he was having has resolved and he no longer has the painful click on stairs. He reports that steps have been pain-free for 1 week now. He reports that the numbness is resolved. He also reports that the effusion is improved. He reports a good workout last session without an increase in pain. He reports compliance with HEP 2x day. He denies any pain to start today. He feels that stairs are 100% normal for ascending but 90% for descending. Pain: Pain Pain Level: 0 Pain Location: Knee - Right Description: (no pain to start today) Frequency: Intermittent Post Treatment Pain Post Treatment Pa (more content not included)... [facility] 04-14-2023 Note HNO ID: [id number] Author: Maurice Pope, PT Service: ? Author Type: Physical Therapist Type: Progress Notes Filed: 04/14/2023 2:05 PM Note Text: Episode Visit Count: 25 Therapist That Will Accept/Oversee The Plan Of Care: Maurice Pope Start of Care Date: 01/02/23 Onset Date: 11/04/22 Plan of Care Certification Date: 12/16/22 Patient Identified by Name and Date of : Yes REHABILITATION AND SPORTS THERAPY PHYSICAL THERAPY TREATMENT NOTE ASSESSMENT: Terry Smith tolerated the session with fatigue and expected muscle soreness. He demonstrated improvements in exercise tolerance and biomechanics. The patient will continue to benefit from ongoing skilled physical therapy to progress toward set goals, for reassessment by supervising therapist, and to continue with post-operative protocol. PLAN FOR NEXT VISIT: NEGRETE protocol for phase 4 with consideration of progression to tolerance. Continue hop and/or jump training. Progress SLS balance activities. Consider running on treadmill, slide board and/or more SLS hopping. SUBJECTIVE: Pt reports that overall he is still doing well but he has had a wide range of good days and bad days. He reports that over the past 15 days he had the 5 best days he has had and then 5 of the worst days and the last 5 days have been somewhere in between. He reports increased pain and clicking intermittently since last session. He reports that he had noticeable pain after last session that started 1 hour after session and lasted for 1 hour. Pain: Pain Pain Level: 0 Pain Location: Knee - Right Description: (no pain to start) Frequency: Intermittent Post Treatment Pain Post Treatment Pain Level: No Change Post Treatment Pain Location: Knee - Right Post Treatment Symptoms: During and after session, pt reported fatigue but denied any increase in pain. OBJECTIVE MEASURES WITH LEVEL OF FUNCTION: TREATMENT: Carepath: ACL ACL Phase: Phase 4: Advanced Training Phase Therapeutic Exercise: 1: Upright bike seat #7 level #8 x5 minutes. (Pt provided an update on his condition and therapist addressed all of patient's concerns.) 2: [employer] he[employer]'s peak program level 5 x5 minutes 3: Lateral step down heel taps on R SLS in // bars 2x10 and 1x20 on 6 inch step (mirror to prevent contralateral hip drop) 4: squats on platform side of BOSU 3x10 5: R leg press 112# 2x10 6: R HS curl machine 60# 2x15 7: Multi-hip machine 80# B hip flexion, extension and abduction x15 each 8: lateral step ups on and over dome side of BOSU 3x10 9: R HS stool scoots two laps around equipment. 10: blue t-band monster walking, B side stepping and retro Monster walk x2 laps 11: jump training in small amplitude with emphasis on landing correctly with weight evenly distributed on both feet. 3x10 with use of mirror and verbal cues. 12: R SLS ball toss to rebounder 3x15 13: R SLS hopping forward 2x5 in front of mirror with verbal cues and encouragement. 14: squats at // bars in front of mirror with emphasis on form 3x10. Skilled Intervention: Patient was educated in proper exercise technique and purpose for exercises. Skilled judgment was provided in selection of appropriate interventions. Correct performance of therapeutic exercises was facilitated with verbal and visual cuing. Patient education as noted. Billing Therapeutic Exercise Treatment Minutes: 58 Total Treatment Time Minutes (timed/untimed): 58 Session Start Time : 1300 Session Stop Time : 1358 Maurice Pope, PT [facility] 04-14-2023 History of Presen t illness Narrative Episode Visit Count: 25 Therapist That Will Accept/Oversee The Plan Of Care: Maurice Pope Start of Care Date: 01/02/23 Onset Date: 11/04/22 Plan of Care Certification Date: 12/16/22 Patient Identified by Name and Date of : Yes REHABILITATION AND SPORTS THERAPY PHYSICAL THERAPY TREATMENT NOTE ASSESSMENT: Terry Tin Smith tolerated the session with fatigue and expected muscle soreness. He demonstrated improvements in exercise tolerance and biomechanics. The patient will continue to benefit from ongoing skilled physical therapy to progress toward set goals, for reassessment by supervising therapist, and to continue with post-operative protocol. PLAN FOR NEXT VISIT: MARLINE protocol for phase 4 with consideration of progression to tolerance. Continue hop and/or jump training. Progress SLS balance activities. Consider running on treadmill, slide board and/or more SLS hopping. SUBJECTIVE: Pt reports that overall he is still doing well but he has had a wide range of good days and bad days. He reports that over the past 15 days he had the 5 best days he has had and then 5 of the worst days and the last 5 days have been somewhere in between. He reports increased pain and clicking intermittently since last session. He reports that he had noticeable pain after last session that started 1 hour after session and lasted for 1 hour. Pain: Pain Pain Level: 0 Pain Location: Knee - Right Description: (no pain to start) Frequency: Intermittent Post Treatment Pain Post Treatment Pain Level: No Change Post Treatment Pain Location: Knee - Right Post Treatment Symptoms: During and after session, pt reported fatigue but denied any increase in pain. OBJECTIVE MEASURES WITH LEVEL OF FUNCTION: TREATMENT: Carepath: ACL ACL Phase: Phase 4: Advanced Training Phase Therapeutic Exercise: 1: Upright bike seat #7 level #8 x5 minutes. (Pt provided an update on his condition and therapist addressed all of patient's concerns.) 2: [employer]'s peak program level 5 x5 minutes 3: Lateral step down heel taps on R SLS in // bars 2x10 and 1x20 on 6 inch step (mirror to prevent contralateral hip drop) 4: squats on platform side of BOSU 3x10 5: R leg press 112# 2x10 6: R HS curl machine 60# 2x15 7: Multi-hip machine 80# B hip flexion, extension and abduction x15 each 8: lateral step ups on and over dome side of BOSU 3x10 9: R HS stool scoots two laps around equipment. 10: blue t-band monster walking, B side stepping and retro Monster walk x2 laps 11: jump training in small amplitude with emphasis on landing correctly with weight evenly distributed on both feet. 3x10 with use of mirror and verbal cues. 12: R SLS ball toss to rebounder 3x15 13: R SLS hopping forward 2x5 in front of mirror with verbal cues and encouragement. 14: squats at // bars in front of mirror with emphasis on form 3x10. Skilled Intervention: Patient was educated in proper exercise technique and purpose for exercises. Skilled judgment was provided in selection of appropriate interventions. Correct performance of therapeutic exercises was facilitated with verbal and visual cuing. Patient education as noted. Billing Therapeutic Exercise Treatment Minutes: 58 Total Treatment Time Minutes (timed/untimed): 58 Session Start Time : 1300 Session Stop Time : 1358 Maurice Pope PT documented in this encounter [facility] 04-12-2023 Note HNO ID: [id number] Author: Renita Mcfarland APRN.[employer] Service: ? Author Type: Nurse Practitioner Type: Progress Notes Filed: 04/12/2023 11:31 AM Note Text: CC: Patient presents with: Physical HPI Terry Smith is a 37 year old male who presents today for above. He tore his right ACL in November, repaired in December. Still in PT, progressing somewhat slower than what he anticipated. Exercise: limited mobility secondary to ACL tear and repair. Still in PT. Diet: Watches diet for salt (salty snacks, added salt, processed frozen/canned foods), sugary/sweet snacks, unhealthy fats: most of the time REVIEW OF SYSTEMS GENERAL: Negative for malaise, significant weight loss and fever HEENT: Negative for frequent or significant headaches, significant change in vision, significant vision problems, significant ear problems or hearing loss RESPIRATORY: Negative for cough, wheezing and shortness of breath CARDIOVASCULAR: Negative for chest pain, leg swelling and palpitations GI: Negative for abdominal discomfort, blood in stools or black stools, change in bowel habit, heart burn, nausea, vomiting : Negative for dysuria, frequency, decreased stream, hesitancy, and nocturia >1 PSYCH: Negative for sleep disturbance, mood disorder and recent psychosocial stressors. 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 calcipotriene (DOVONEX) 0.005 % cream Apply to affected area twice daily. betamethasone valerate 0.1 % cream Apply to affected area twice daily as needed (for psoriasis in the groin and ears). betamethasone dipropionate (DIPROSONE) 0.05 % cream Apply to affected area twice daily as needed (for psoriasis on the body and feet.). naproxen (NAPROSYN) 500 mg tablet Take 1 tablet by mouth twice daily with meals. Take with food oxyCODONE-acetaminophen (PERCOCET) 5-325 mg tablet Take 1 tablet by mouth every 6 hours as needed for pain (Take lowest effective dose. Do not take with alcohol or sleep aids.). (Patient not taking: Reported on 01/04/2023) FAMILY HISTORY Problem Relation Age of Onset other (MS [Other]) Mother 54 Heart Father 57 No Known Problems Sister No Known Problems Brother No Known Problems Brother No Known Problems Brother Diabetes Maternal Grandfather Anesthesia Problems No Family History Blood Clots No Family History Clotting Disorder No Family History Social History Tobacco Use Smoking status: Never Smokeless tobacco: Never Substance Use Topics Alcohol use: Not Currently Comment: 2-3 drinks 2-3 x / wk Drug use: Never PHYSICAL EXAM BP 102/80 (BP Site: Left Arm, BP Position: Sitting, BP Cuff Size: Regular Adult) Pulse 80 Resp 16 Ht 185.6 cm (6' 1.07 ) Wt 77.6 kg (171 lb) BMI 22.52 kg/m? General Appearance: well appearing, in no acute distress, alert Pysch: mood and affect broad and appropriate Skin: Skin color, texture, turgor normal for age; Eyes: conjunctiva pink and moist, no icterus, sclera white, non-injected Neck: Thyroid normal size and symmetric without palpable nodules, Neck supple, No adenopathy Lymph nodes: No supraclavicular lymphadenopathy Lungs: Lungs clear to auscultation. No wheezing, rhonchi, rales. Heart: RRR without murmur, gallop, or rubs. No ectopy Health maintenance reviewed with patient: LIPID SCREEN due on 04/13/2021 INFLUENZA(1) due on 04/21/2023 DTAP,TDAP,TD(3 - Td or Tdap) due on 07/03/2030 HEPATITIS B Completed DEPRESSION ASSESSMENT Completed HEPATITIS C SCREENING Completed HIV SCREENING Completed COVID-19 VACCINE Completed HPV VACCINE Aged Out DATA REVIEWED: Most recent labs ASSESSMENT/PLAN: 1. Wellness examination - ICD9: V70.0, ICD10: Z00.00 (primary diagnosis) - Counseled on healthy diet and regular exercise - Depression screening tool completed and reviewed with patient. Based on score and interview, patient is not at risk for depression and recommended no further intervention at this time. - Follow up for annual exam in one year 2. Screening for lipid disorders - ICD9: V77.91, ICD10: Z13.220 - LIPID PANEL BASIC Prescription instructions reviewed with patient as applicable. Potential red flag symptoms discussed with the patient. Reviewed appropriate action plan to take if red flag symptoms occur. Patient agreeable to treatment plan. Renita Mcfarland APRN.CNP [facility] 04-07-2023 Note HNO ID: [id number] Author: Maurice Pope PT Service: ? Author Type: Physical Therapist Type: Progress Notes Filed: 04/07/2023 12:04 PM Note Text: Episode Visit Count: 24 Therapist That Will Accept/Oversee The Plan Of Care: Maurice Pope Start of Care Date: 01/02/23 Onset Date: 11/04/22 Plan of Care Certification Date: 12/16/22 Patient Identified by Name and Date of : Yes REHABILITATION AND SPORTS THERAPY PHYSICAL THERAPY TREATMENT NOTE ASSESSMENT: Terry Smith tolerated the session with fatigue, expected muscle soreness, and no issues. He demonstrated improvements in strength, pain and exercise tolerance. The patient will continue to benefit from ongoing skilled physical therapy to progress toward set goals and to continue with post-operative protocol. PLAN FOR NEXT VISIT: NEGRETE protocol for phase 4 with consideration of progression to tolerance. Continue hop and/or jump training. Progress SLS balance activities. Consider running on treadmill, slide board and/or monster walk. SUBJECTIVE: Pt reports that for the 4-5 days from Monday to Monday were really bad days but the 4-5 days prior to that period were the best days he has had. Currently he reports that he is improved. He reports that his follow up with referring provider went well. He reports being advised that he should not be participating in [employer] yet. Pt also reports being advised to continue PT 1x week. Pain: Pain Pain Level: 0 Pain Location: Knee - Right Description: (no pain to start today) Frequency: Intermittent Post Treatment Pain Post Treatment Pain Level: No Change Post Treatment Pain Location: Knee - Right Post Treatment Symptoms: Pt reported fatigue from a good workout and the progressions, but he denied any increase in pain. OBJECTIVE MEASURES WITH LEVEL OF FUNCTION: TREATMENT: Carepath: ACL ACL Phase: Phase 4: Advanced Training Phase Therapeutic Exercise: 1: Upright bike seat #7 level #8 x6 minutes. (Pt provided an update on his condition and therapist addressed all of patient's concerns in advance of his physician follow up.) 2: Statomy henao's peak program level 4 x5 minutes 4: squats on platform side of BOSU 2x15 5: R leg press 112# 2x10 6: R HS curl machine 60# 2x10 and 1x15 7: Multi-hip machine 80# B hip flexion, extension and abduction x15 each 8: lateral step ups on and over dome side of BOSU 2x15 9: R HS stool scoots one lap around equipment. 10: blue t-band monster walking, B side stepping and retro Monster walk x2 laps 11: jump training in small amplitude with emphasis on landing correctly with weight evenly distributed on both feet. 3x10 with use of mirror and verbal cues. 12: R SLS ball toss to rebounder 3x15 Skilled Intervention: Patient was educated in proper exercise technique and purpose for exercises. Skilled judgment was provided in selection of appropriate interventions. Correct performance of therapeutic exercises was facilitated with verbal and visual cuing. Patient education as noted. Billing Therapeutic Exercise Treatment Minutes: 39 Total Treatment Time Minutes (timed/untimed): 39 Session Start Time : 1118 Session Stop Time : 1157 Maurice Pope PT [facility] 04-07-2023 History of Presen t illness Narrative Episode Visit Count: 24 Therapist That Will Accept/Oversee The Plan Of Care: Maurice Pope Start of Care Date: 01/02/23 Onset Date: 11/04/22 Plan of Care Certification Date: 12/16/22 Patient Identified by Name and Date of : Yes REHABILITATION AND SPORTS THERAPY PHYSICAL THERAPY TREATMENT NOTE ASSESSMENT: Terry Smith tolerated the session with fatigue, expected muscle soreness, and no issues. He demonstrated improvements in strength, pain and exercise tolerance. The patient will continue to benefit from ongoing skilled physical therapy to progress toward set goals and to continue with post-operative protocol. PLAN FOR NEXT VISIT: NEGRETE protocol for phase 4 with consideration of progression to tolerance. Continue hop and/or jump training. Progress SLS balance activities. Consider running on treadmill, slide board and/or monster walk. SUBJECTIVE: Pt reports that for the 4-5 days from Monday to Monday were really bad days but the 4-5 days prior to that period were the best days he has had. Currently he reports that he is improved. He reports that his follow up with referring provider went well. He reports being advised that he should not be participating in [email or web address] yet. Pt also reports being advised to continue PT 1x week. Pain: Pain Pain Level: 0 Pain Location: Knee - Right Description: (no pain to start today) Frequency: Intermittent Post Treatment Pain Post Treatment Pain Level: No Change Post Treatment Pain Location: Knee - Right Post Treatment Symptoms: Pt reported fatigue from a good workout and the progressions, but he denied any increase in pain. OBJECTIVE MEASURES WITH LEVEL OF FUNCTION: TREATMENT: Carepath: ACL ACL Phase: Phase 4: Advanced Training Phase Therapeutic Exercise: 1: Upright bike seat #7 level #8 x6 minutes. (Pt provided an update on his condition and therapist addressed all of patient's concerns in advance of his physician follow up.) 2: [employer]'s peak program level 4 x5 minutes 4: squats on platform side of BOSU 2x15 5: R leg press 112# 2x10 6: R HS curl machine 60# 2x10 and 1x15 7: Multi-hip machine 80# B hip flexion, extension and abduction x15 each 8: lateral step ups on and over dome side of BOSU 2x15 9: R HS stool scoots one lap around equipment. 10: blue t-band monster walking, B side stepping and retro Monster walk x2 laps 11: jump training in small amplitude with emphasis on landing correctly with weight evenly distributed on both feet. 3x10 with use of mirror and verbal cues. 12: R SLS ball toss to rebounder 3x15 Skilled Intervention: Patient was educated in proper exercise technique and purpose for exercises. Skilled judgment was provided in selection of appropriate interventions. Correct performance of therapeutic exercises was facilitated with verbal and visual cuing. Patient education as noted. Billing Therapeutic Exercise Treatment Minutes: 39 Total Treatment Time Minutes (timed/untimed): 39 Session Start Time : 1118 Session Stop Time : 1157 Maurice Pope PT documented in this encounter [facility] 03-31-2023 Note HNO ID: [id number] Author: Jim Reed MD Service: ? Author Type: Physician Type: Progress Notes Filed: 03/31/2023 12:22 PM Note Text: DATE OF PROCEDURE: December 29, 2022 OPERATION: 1. Right knee arthroscopically-assisted anterior cruciate ligament reconstruction with quintuple stranded hamstring autograft 2. Diagnostic arthroscopy. 3. Examination under anesthesia. 4. Right knee partial lateral meniscectomy REF: Dr. Ahn Interval history: Terry Smith returns today status post right knee surgery. Chief complaint is right knee popping near full extension. Doing well otherwise. Was walking and doing ultimate frisbee . Review of Systems: CV: No chest pain Pulm: No short of breath HEENT: No head ache General: no fevers, chills, nausea/vomiting, malaise Physical Examination: This is a well appearing, well nourished patient in no acute distress. Head is normocephalic and atraumatic. White sclera and pink conjunctiva. Mucous membranes are moist. Breathes easily and has normal chest wall excursion. Affect is normal. Right knee: minor crepitance Range of motion: Flexion is 130 degrees, extension is full . Effusion: 1 +. Incisions: healed . No infection. Imaging: none Impression: Terry Smith is a 37 year old male, who is 3months status post right knee ACLR and partial lateral meniscectomy . Plan: PT Cautioned against ultimate frisbee return to clinic in 6 weeks Jim Reed MD [facility] 03-31-2023 History of Presen t illness Narrative DATE OF PROCEDURE: December 29, 2022 OPERATION: 1. Right knee arthroscopically-assisted anterior cruciate ligament reconstruction with quintuple stranded hamstring autograft 2. Diagnostic arthroscopy. 3. Examination under anesthesia. 4. Right knee partial lateral meniscectomy REF: Dr. Ahn Interval history: Terry Smith returns today status post right knee surgery. Chief complaint is right knee popping near full extension. Doing well otherwise. Was walking and doing ultimate frisbee . Review of Systems: CV: No chest pain Pulm: No short of breath HEENT: No head ache General: no fevers, chills, nausea/vomiting, malaise Physical Examination: This is a well appearing, well nourished patient in no acute distress. Head is normocephalic and atraumatic. White sclera and pink conjunctiva. Mucous membranes are moist. Breathes easily and has normal chest wall excursion. Affect is normal. Right knee: minor crepitance Range of motion: Flexion is 130 degrees, extension is full . Effusion: 1 +. Incisions: healed . No infection. Imaging: none Impression: Terry mSith is a 37 year old male, who is 3months status post right knee ACLR and partial lateral meniscectomy . Plan: PT Cautioned against [employer] return to clinic in 6 weeks Jim Reed MD documented in this encounter [facility] 03-30-2023 Note HNO ID: [id number] Author: Maurice Pope PT Service: ? Author Type: Physical Therapist Type: Progress Notes Filed: 03/30/2023 10:18 AM Note Text: Episode Visit Count: 23 Therapist That Will Accept/Oversee The Plan Of Care: Maurice Pope Start of Care Date: 01/02/23 Onset Date: 11/04/22 Plan of Care Certification Date: 12/16/22 Patient Identified by Name and Date of : Yes REHABILITATION AND SPORTS THERAPY PHYSICAL THERAPY TREATMENT NOTE ASSESSMENT: Terry Smith tolerated the session with fatigue, expected muscle soreness, and no issues. He demonstrated improvements in strength, biomechanics, confidence and return to prior functional level. The patient will continue to benefit from ongoing skilled physical therapy to progress toward set goals and to continue with post-operative protocol. PLAN FOR NEXT VISIT: NEGRETE protocol for phase 4 with consideration of progression to tolerance. Continue hop and/or jump training. Progress SLS balance activities. Consider running on treadmill, slide board and/or monster walk. SUBJECTIVE: Pt reports playing [employer] yesterday for 1 hour. He reports that he just walked and that this went very well. He denied any increase in pain during, or after playing. 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 He denies any pain to start today. He was pleased with the fact that he could start to resume previous activities. He reports that he played at 20% of his prior level yesterday. He states the light at the end of the tunnel is getting bigger. Pain: Pain Pain Level: 0 Pain Location: Knee - Right Description: (no pain to start) Frequency: Intermittent Post Treatment Pain Post Treatment Pain Level: No Change Post Treatment Pain Location: Knee - Right Post Treatment Symptoms: He reported fatigue from a good workout but he denied any pain to start and no pain after. OBJECTIVE MEASURES WITH LEVEL OF FUNCTION: Gait Gait Observation: normal without device or brace TREATMENT: Carepath: ACL ACL Phase: Phase 4: Advanced Training Phase Therapeutic Exercise: 1: Upright bike seat #7 level #8 x6 minutes. (Pt provided an update on his condition and therapist addressed all of patient's concerns in advance of his physician follow up.) 2: [employer]'s peak program level 5 x5 minutes 3: Lateral step down heel taps on R SLS in // bars 2x20 on 6 inch step (mirror to prevent contralateral hip drop) 4: squats on platform side of BOSU 2x15 5: R leg press 112# 2x10 6: R HS curl machine 60# 3x10 7: Multi-hip machine 70# B hip flexion, extension and abduction x10 each B and 80# x10 each. 8: lateral step ups on and over dome side of BOSU 2x15 9: R HS stool scoots one lap around equipment. 10: squats in front of mirror 2x15 with emphasis on form and technique (one set facing each direction for visual feedback from mirror) 11: jump training in small amplitude with emphasis on landing correctly with weight evenly distributed on both feet. 3x10 with use of mirror and verbal cues. 12: R SLS ball toss to rebounder 3x10 13: Plan of care reviewed and carepath phase progression explained. All of patient's questions answered. Skilled Intervention: Patient was educated in proper exercise technique and purpose for exercises. Skilled judgment was provided in selection of appropriate interventions. Correct performance of therapeutic exercises was facilitated with verbal and visual cuing. Patient education as noted. Billing Therapeutic Exercise Treatment Minutes: 45 Total Treatment Time Minutes (timed/untimed): 45 Session Start Time : 0916 Session Stop Time : 1001 Maurice Pope PT [facility] 03-28-2023 Note HNO ID: [id number] Author: Golias, Maurice, PT Service: ? Author Type: Physical Therapist Type: Progress Notes Filed: 03/28/2023 3:04 PM Note Text: Episode Visit Count: 22 Therapist That Will Accept/Oversee The Plan Of Care: Maurice Pope Start of Care Date: 01/02/23 Onset Date: 11/04/22 Plan of Care Certification Date: 12/16/22 Patient Identified by Name and Date of : Yes REHABILITATION AND SPORTS THERAPY PHYSICAL THERAPY TREATMENT NOTE ASSESSMENT: Terry Smith tolerated the session with fatigue, expected muscle soreness, and no issues. He demonstrated improvements in confidence, strength and exercise tolerance. Pt biomechanics are improved. The patient will continue to benefit from ongoing skilled physical therapy to progress toward set goals and to continue with post-operative protocol. Classification ACL-RSI Raw Score: 820 ACL-RSI Final Score %: 68.33 IKDC #10: 8 PLAN FOR NEXT VISIT: NEGRETE protocol for phase 4 with consideration of progression to tolerance. Continue hop and/or jump training. Progress SLS balance activities. SUBJECTIVE: Pt reports continued progressive improvements. He reports increased gait speed with increased confidence. He reports compliance with HEP and he denies any pain to start today. Pain: Pain Pain Level: 0 Pain Location: Knee - Right Description: (no pain to start today) Frequency: Intermittent Post Treatment Pain Post Treatment Pain Level: No Change Post Treatment Pain Location: Knee - Right Post Treatment Symptoms: Pt reported fatigue from a good workout but he denied any increase in pain. OBJECTIVE MEASURES WITH LEVEL OF FUNCTION: LE Strength R LE Strength: Right SLS anterior reach with L LE is 6.5cm less than L SLS. Gait Gait Observation: normal TREATMENT: Carepath: ACL ACL Phase: Phase 4: Advanced Training Phase Therapeutic Exercise: 1: Upright bike seat #7 level #8 x6 minutes. (Pt provided an update on his condition and therapist addressed all of patient's concerns in advance of his physician follow up.) 2: Micky henao's peak program level 4 x5 minutes 3: Lateral step down heel taps on R SLS in // bars 2x20 on 6 inch step 4: squats on platform side of BOSU 2x15 5: R leg press 88# 3x15 6: R HS curl machine 50# 3x15 7: Multi-hip machine 60# B hip flexion, extension and abduction x15 each B 8: lateral step ups on and over dome side of BOSU 2x15 10: squats in front of mirror 2x10 with emphasis on form and technique 11: jump training in small amplitude with emphasis on landing correctly with weight evenly distributed on both feet. 3x10 with use of mirror and verbal cues. Skilled Intervention: Patient was educated in proper exercise technique and purpose for exercises. Skilled judgment was provided in selection of appropriate interventions. Correct performance of therapeutic exercises was facilitated with verbal and visual cuing. Patient education as noted. Billing Therapeutic Exercise Treatment Minutes: 46 Total Treatment Time Minutes (timed/untimed): 46 Session Start Time : 1400 Session Stop Time : 1446 Maurice Pope PT [facility] 03-28-2023 History of Presen t illness Narrative Episode Visit Count: 22 Therapist That Will Accept/Oversee The Plan Of Care: Maurice Pope Start of Care Date: 01/02/23 Onset Date: 11/04/22 Plan of Care Certification Date: 12/16/22 Patient Identified by Name and Date of : Yes REHABILITATION AND SPORTS THERAPY PHYSICAL THERAPY TREATMENT NOTE ASSESSMENT: Terry Smith tolerated the session with fatigue, expected muscle soreness, and no issues. He demonstrated improvements in confidence, strength and exercise tolerance. Pt biomechanics are improved. The patient will continue to benefit from ongoing skilled physical therapy to progress toward set goals and to continue with post-operative protocol. Classification ACL-RSI Raw Score: 820 ACL-RSI Final Score %: 68.33 IKDC #10: 8 PLAN FOR NEXT VISIT: NEGRETE protocol for phase 4 with consideration of progression to tolerance. Continue hop and/or jump training. Progress SLS balance activities. SUBJECTIVE: Pt reports continued progressive improvements. He reports increased gait speed with increased confidence. He reports compliance with HEP and he denies any pain to start today. Pain: Pain Pain Level: 0 Pain Location: Knee - Right Description: (no pain to start today) Frequency: Intermittent Post Treatment Pain Post Treatment Pain Level: No Change Post Treatment Pain Location: Knee - Right Post Treatment Symptoms: Pt reported fatigue from a good workout but he denied any increase in pain. OBJECTIVE MEASURES WITH LEVEL OF FUNCTION: LE Strength R LE Strength: Right SLS anterior reach with L LE is 6.5cm less than L SLS. Gait Gait Observation: normal TREATMENT: Carepath: ACL ACL Phase: Phase 4: Advanced Training Phase Therapeutic Exercise: 1: Upright bike seat #7 level #8 x6 minutes. (Pt provided an update on his condition and therapist addressed all of patient's concerns in advance of his physician follow up.) 2: Statomy henao's peak program level 4 x5 minutes 3: Lateral step down heel taps on R SLS in // bars 2x20 on 6 inch step 4: squats on platform side of BOSU 2x15 5: R leg press 88# 3x15 6: R HS curl machine 50# 3x15 7: Multi-hip machine 60# B hip flexion, extension and abduction x15 each B 8: lateral step ups on and over dome side of BOSU 2x15 10: squats in front of mirror 2x10 with emphasis on form and technique 11: jump training in small amplitude with emphasis on landing correctly with weight evenly distributed on both feet. 3x10 with use of mirror and verbal cues. Skilled Intervention: Patient was educated in proper exercise technique and purpose for exercises. Skilled judgment was provided in selection of appropriate interventions. Correct performance of therapeutic exercises was facilitated with verbal and visual cuing. Patient education as noted. Billing Therapeutic Exercise Treatment Minutes: 46 Total Treatment Time Minutes (timed/untimed): 46 Session Start Time : 1400 Session Stop Time : 1446 Maurice Pope PT documented in this encounter [facility] 03-22-2023 Note HNO ID: [id number] Author: Maurice Pope PT Service: ? Author Type: Physical Therapist Type: Progress Notes Filed: 03/22/2023 12:03 AM Note Text: Episode Visit Count: 21 Therapist That Will Accept/Oversee The Plan Of Care: Maurice Pope Start of Care Date: 01/02/23 Onset Date: 11/04/22 Plan of Care Certification Date: 12/16/22 Patient Identified by Name and Date of : Yes REHABILITATION AND SPORTS THERAPY PHYSICAL THERAPY PROGRESS REPORT PLAN OF CARE UPDATE: Assessment: Terry Smith demonstrates significant improvement in standing, walking, stair negotiation, recreational activities, squatting, and working . He has progressed toward goals. Patient continues to present with impairments in balance, coordination, overall function, range of motion, soft tissue healing, strength, and symptom management that interfere with recreational activities, physical activities, running, jumping, squatting . Current prognosis is Excellent due to: current objective clinical presentation, good overall health status, acuteness of condition, positive past response to therapy, good support system/ coping skills, within-session changes He will benefit from continued skilled therapy services to meet the updated goals for this plan of care as noted below. Updated: 01/25/23 and 02/23/23 and 03/21/23 Goals for Episode of Care: created on 01/02/23 through 04/24/23 Phase 1 to Phase 2 Criteria: Criterion for Progression: Complete 20 straight leg raises with no quadriceps lag. - MET Range of motion Full active knee extension (within 3 degrees) Active Flexion to 110 degrees. - MET Full quadriceps activation: full, without visual inhibition. - MET Normalized Gait. - Partially MET Discontinuation of Crutch/Immobilizer devices. - Partially MET Phase 2 to Phase 3 Criteria: Criterion for Progression: Range of motion: full, equal to contralateral. - Partially MET Stairs: 10-12 steps, ascent/descent in a reciprocal pattern with (6-8 height). - MET Double leg squat: 60-90 degree bend, equal weight bearing, proper mechanics. - MET Demonstrates functional strength and control with performing daily activities. - MET Phase 3 to Phase 4 Criteria: Criterion for Progression: Range of Motion: maintained full and equal to contralateral limb - Partially MET Strength symmetry testin% symmetry using any of the following methods: Dynamometer testing - Partially MET Motor control: 6 inch eccentric step-downs with heel tap, 20 reps, proper Mechanics. - Partially MET Hopping in place: double leg and single leg, no pain, proper mechanics. - Partially MET Outcomes: IKDC greater than or equal to 7, ADL-RSI greater than or equal to 50-60 score. - MET Phase 4 to Phase 5 Criteria: Criterion for Progression: Maximum vertical jump without pain or instability. 80% of contralateral on single hop tests. Normalized running. Y-balance - anterior reach: less than 4 cm asymmetry. Strength: 85% symmetry. IKDC Question (Global Rating of Knee Function) score of 8 or greater. Phase 5 to Return to Sport Criteria: Criterion for Progression: Strength: Greater than or equal to 90% symmetry. Hop testin% symmetry with proper mechanics. Pain free transition to activities and no functional complaints. Confidence when running, cutting, jumping at full speed. IKDC Question (Global Rating of Knee Function) of > 9. Patient Goals: regain prior functional status and play ultimate frisbee Patient Goals: regain prior functional status and play ultimate frisbee Planned Interventions, Frequency, and Duration: 2x/week, 4 weeks Total Number of Visits Planned: 8 Patient to be seen for Therapeutic exercise (48115), Neuromuscular re-education (88942), Therapeutic activities (22520), Self-penitentiary management (98600), Gait Training (41975), Patient/Family/Caregiver Education, Body Mechanics Training, General Conditioning PLAN FOR NEXT VISIT: NEGRETE protocol for phase 3 with consideration of progression to tolerance. Consider continuation of hop and/or jump training. Progress SLS balance activities. SUBJECTIVE: Patient Reason for Visit: Pt reports that he is continuing to get progressively better. He reports that he was feeling so good yesterday that he did a lot more walking than he usually does. He reports that he L calf is sore today and his R knee is sore. He denies any pain to start today. He reports that he took his dogs for several walks and did some walking by himself as well. He reports compliance with HEP 2x day. He reports that the amount of step he took in February is the most amount of steps he has taken since prior to his injury. Patient Goals: regain prior functional status and play ultimate frisbee Functional Limitations: recreational activities, physical activities, running, jumping, squatting Prior Level of Function: Independent without limitations Pain: Pain Pain Level: 0 Pain Location: Knee - (more content not included)... [facility] 03-22-2023 History of Presen t illness Narrative Episode Visit Count: 21 Therapist That Will Accept/Oversee The Plan Of Care: Maurice Pope Start of Care Date: 01/02/23 Onset Date: 11/04/22 Plan of Care Certification Date: 12/16/22 Patient Identified by Name and Date of : Yes REHABILITATION AND SPORTS THERAPY PHYSICAL THERAPY PROGRESS REPORT PLAN OF CARE UPDATE: Assessment: Terry Smith demonstrates significant improvement in standing, walking, stair negotiation, recreational activities, squatting, and working . He has progressed toward goals. Patient continues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 on proper form and control. Skilled Intervention: Patient was educated in proper exercise technique and purpose for exercises. Skilled judgment was provided in selection of appropriate interventions. Correct performance of therapeutic exercises was facilitated with verbal and visual cuing. Billing Therapeutic Exercise Treatment Minutes: 40 Total Treatment Time Minutes (timed/untimed): 40 Beverly Duran, [employer]HOU[employer] Ciera Coronado PT documented in this encounter [facility] 02-24-2023 Note HNO ID: [id number] Author: Jim Reed MD Service: ? Author Type: Physician Type: Progress Notes Filed: 02/24/2023 1:50 PM Note Text: DATE OF PROCEDURE: December 29, 2022 OPERATION: 1. Right knee arthroscopically-assisted anterior cruciate ligament reconstruction with quintuple stranded hamstring autograft 2. Diagnostic arthroscopy. 3. Examination under anesthesia. 4. Right knee partial lateral meniscectomy REF: Dr. Ahn Interval history: Terry Smith returns today status post right knee surgery. Chief complaint is right knee resolved pain. Doing well . Review of Systems: CV: No chest pain Pulm: No short of breath HEENT: No head ache General: no fevers, chills, nausea/vomiting, malaise Physical Examination: This is a well appearing, well nourished patient in no acute distress. Head is normocephalic and atraumatic. White sclera and pink conjunctiva. Mucous membranes are moist. Breathes easily and has normal chest wall excursion. Affect is normal. right knee: negative gian's Range of motion: Flexion is lacking 4 fingerbreadths, extension is full. Lacks hyperextension . Effusion: trace +. Incisions: healed . No infection. Imaging: none Impression: Terry Smith is a 37 year old male, who is 2 months status post right knee ACLR and partial lateral meniscectomy . Plan: PT return to clinic in 1 month for a virtual visit Jim Reed MD [facility] 02-24-2023 History of Presen t illness Narrative DATE OF PROCEDURE: December 29, 2022 OPERATION: 1. Right knee arthroscopically-assisted anterior cruciate ligament reconstruction with quintuple stranded hamstring autograft 2. Diagnostic arthroscopy. 3. Examination under anesthesia. 4. Right knee partial lateral meniscectomy REF: Dr. Ahn Interval history: Terry Smith returns today status post right knee surgery. Chief complaint is right knee resolved pain. Doing well . Review of Systems: CV: No chest pain Pulm: No short of breath HEENT: No head ache General: no fevers, chills, nausea/vomiting, malaise Physical Examination: This is a well appearing, well nourished patient in no acute distress. Head is normocephalic and atraumatic. White sclera and pink conjunctiva. Mucous membranes are moist. Breathes easily and has normal chest wall excursion. Affect is normal. right knee: negative gian's Range of motion: Flexion is lacking 4 fingerbreadths, extension is full. Lacks hyperextension . Effusion: trace +. Incisions: healed . No infection. Imaging: none Impression: Terry Smith is a 37 year old male, who is 2 months status post right knee ACLR and partial lateral meniscectomy . Plan: PT return to clinic in 1 month for a virtual visit Jim Reed MD documented in this encounter [facility] 02-23-2023 Note HNO ID: [id number] Author: Maurice Pope PT Service: ? Author Type: Physical Therapist Type: Progress Notes Filed: 02/23/2023 5:41 PM Note Text: Episode Visit Count: 17 Therapist That Will Accept/Oversee The Plan Of Care: Maurice Pope Start of Care Date: 01/02/23 Onset Date: 11/04/22 Plan of Care Certification Date: 12/16/22 Patient Identified by Name and Date of : Yes REHABILITATION AND SPORTS THERAPY PHYSICAL THERAPY PROGRESS REPORT PLAN OF CARE UPDATE: Assessment: Terry Smith demonstrates significant improvement in rising from a chair, standing, walking, stair negotiation, and squatting . He has progressed toward goals. Patient continues to present with impairments in balance, coordination, overall function, range of motion, strength, and symptom management that interfere with recreational activities, physical activities, running, jumping, squatting . Current prognosis is Excellent due to: current objective clinical presentation, good overall health status, acuteness of condition, positive past response to therapy, good support system/ coping skills, within-session changes. He will benefit from continued skilled therapy services to meet the updated goals for this plan of care as noted below. Updated: 01/25/23 and 02/23/23 Goals for Episode of Care: created on 01/02/23 through 04/24/23 Phase 1 to Phase 2 Criteria: Criterion for Progression: Complete 20 straight leg raises with no quadriceps lag. - MET Range of motion Full active knee extension (within 3 degrees) Active Flexion to 110 degrees. - MET Full quadriceps activation: full, without visual inhibition. - MET Normalized Gait. - Partially MET Discontinuation of Crutch/Immobilizer devices. - Partially MET Phase 2 to Phase 3 Criteria: Criterion for Progression: Range of motion: full, equal to contralateral. - Partially MET Stairs: 10-12 steps, ascent/descent in a reciprocal pattern with (6-8 height). - MET Double leg squat: 60-90 degree bend, equal weight bearing, proper mechanics. - MET Demonstrates functional strength and control with performing daily activities. - MET Phase 3 to Phase 4 Criteria: Criterion for Progression: Range of Motion: maintained full and equal to contralateral limb - Partially MET Strength symmetry testin% symmetry using any of the following methods: Dynamometer testing - Partially MET Motor control: 6 inch eccentric step-downs with heel tap, 20 reps, proper Mechanics. - Partially MET Hopping in place: double leg and single leg, no pain, proper mechanics. - Not tested Outcomes: IKDC greater than or equal to 7, ADL-RSI greater than or equal to 50-60 score. - MET Phase 4 to Phase 5 Criteria: Criterion for Progression: Maximum vertical jump without pain or instability. 80% of contralateral on single hop tests. Normalized running. Y-balance - anterior reach: less than 4 cm asymmetry. Strength: 85% symmetry. IKDC Question (Global Rating of Knee Function) score of 8 or greater. Phase 5 to Return to Sport Criteria: Criterion for Progression: Strength: Greater than or equal to 90% symmetry. Hop testin% symmetry with proper mechanics. Pain free transition to activities and no functional complaints. Confidence when running, cutting, jumping at full speed. IKDC Question (Global Rating of Knee Function) of > 9. Patient Goals: regain prior functional status and play ultimate frisbee Patient Goals: regain prior functional status and play ultimate frisbee Planned Interventions, Frequency, and Duration: 2x/week (may decrease to 1x week as able), 8 weeks Total Number of Visits Planned: 16 Patient to be seen for Therapeutic exercise (16163), Neuromuscular re-education (84209), Therapeutic activities (87192), Self-penitentiary management (37905), Gait Training (10061), Patient/Family/Caregiver Education, Body Mechanics Training, General Conditioning PLAN FOR NEXT VISIT: MARLINE protocol for phase 3 with consideration of progression to tolerance. Classification ACL-RSI Raw Score: 52 ACL-RSI Final Score %: 433.33 IKDC #10: 8 SUBJECTIVE: Patient Reason for Visit: Pt reports continued progressive improvements overall. He reports that today is a good day but that the previous three days were difficult because of increased activity level 4 days ago. He denies any pain to start today and he reports compliance with HEP 2x day. He also reports that his daily step count is progressively increasing. Patient Goals: regain prior functional status and play ultimate frisbee Functional Limitations: recreational activities, physical activities, running, jumping, squatting Prior Level of Function: Independent without limitations Pain: Pain Pain Level: 0 Pain Location: Knee - Right Description: (no pain to start today) Frequency: Intermittent Post Treatment Pain Post Treatment Pain Level: 0 Post Treatment Pain Location: Knee - Right Post Treatment Sympto (more content not included)... [facility] 02-23-2023 History of Presen t illness Narrative Episode Visit Count: 17 Therapist That Will Accept/Oversee The Plan Of Care: Maurice Pope Start of Care Date: 01/02/23 Onset Date: 11/04/22 Plan of Care Certification Date: 12/16/22 Patient Identified by Name and Date of : Yes REHABILITATION AND SPORTS THERAPY PHYSICAL THERAPY PROGRESS REPORT PLAN OF CARE UPDATE: Assessment: Terry Smith demonstrates significant improvement in rising from a chair, standing, walking, stair negotiation, and squatting . He has progressed toward goals. Patient continues to present with impairments in balance, coordination, overall function, range of motion, strength, and symptom management that interfere with recreational activities, physical activities, running, jumping, squatting . Current prognosis is Excellent due to: current objective clinical presentation, good overall health status, acuteness of condition, positive past response to therapy, good support system/ coping skills, within-session changes. He will benefit from continued skilled therapy services to meet the updated goals for this plan of care as noted below. Updated: 01/25/23 and 02/23/23 Goals for Episode of Care: created on 01/02/23 through 04/24/23 Phase 1 to Phase 2 Criteria: Criterion for Progression: Complete 20 straight leg raises with no quadriceps lag. - MET Range of motion Full active knee extension (within 3 degrees) Active Flexion to 110 degrees. - MET Full quadriceps activation: full, without visual inhibition. - MET Normalized Gait. - Partially MET Discontinuation of Crutch/Immobilizer devices. - Partially MET Phase 2 to Phase 3 Criteria: Criterion for Progression: Range of motion: full, equal to contralateral. - Partially MET Stairs: 10-12 steps, ascent/descent in a reciprocal pattern with (6-8 height). - MET Double leg squat: 60-90 degree bend, equal weight bearing, proper mechanics. - MET Demonstrates functional strength and control with performing daily activities. - MET Phase 3 to Phase 4 Criteria: Criterion for Progression: Range of Motion: maintained full and equal to contralateral limb - Partially MET Strength symmetry testin% symmetry using any of the following methods: Dynamometer testing - Partially MET Motor control: 6 inch eccentric step-downs with heel tap, 20 reps, proper Mechanics. - Partially MET Hopping in place: double leg and single leg, no pain, proper mechanics. - Not tested Outcomes: IKDC greater than or equal to 7, ADL-RSI greater than or equal to 50-60 score. - MET Phase 4 to Phase 5 Criteria: Criterion for Progression: Maximum vertical jump without pain or instability. 80% of contralateral on single hop tests. Normalized running. Y-balance - anterior reach: less than 4 cm asymmetry. Strength: 85% symmetry. IKDC Question (Global Rating of Knee Function) score of 8 or greater. Phase 5 to Return to Sport Criteria: Criterion for Progression: Strength: Greater than or equal to 90% symmetry. Hop testin% symmetry with proper mechanics. Pain free transition to activities and no functional complaints. Confidence when running, cutting, jumping at full speed. IKDC Question (Global Rating of Knee Function) of > 9. Patient Goals: regain prior functional status and play ultimate frisbee Patient Goals: regain prior functional status and play ultimate frisbee Planned Interventions, Frequency, and Duration: 2x/week (may decrease to 1x week as able), 8 weeks Total Number of Visits Planned: 16 Patient to be seen for Therapeutic exercise (12481), Neuromuscular re-education (71990), Therapeutic activities (31205), Self-penitentiary management (86677), Gait Training (07636), Patient/Family/Caregiver Education, Body Mechanics Training, General Conditioning PLAN FOR NEXT VISIT: NEGRETE protocol for phase 3 with consideration of progression to tolerance. Classification ACL-RSI Raw Score: 52 ACL-RSI Final Score %: 433.33 IKDC #10: 8 SUBJECTIVE: Patient Reason for Visit: Pt reports continued progressive improvements overall. He reports that today is a good day but that the previous three days were difficult because of increased activity level 4 days ago. He denies any pain to start today and he reports compliance with HEP 2x day. He also reports that his daily step count is progressively increasing. Patient Goals: regain prior functional status and play ultimate frisbee Functional Limitations: recreational activities, physical activities, running, jumping, squatting Prior Level of Function: Independent without limitations Pain: Pain Pain Level: 0 Pain Location: Knee - Right Description: (no pain to start today) Frequency: Intermittent Post Treatment Pain Post Treatment Pain Level: 0 Post Treatment Pain Location: Knee - Right Post Treatment Symptoms: Pt denied any pain after session. PROMIS Scales Higher is Better 02/13/2023 01/13/2023 12/15/2022 Phys Func - Score 46 (within normal limits) 42 (mild dysfunction) 39 (moderate dysfunction) Phys Func - Percentile 34 % 21 % 14 % Self-Eff Symptom - Score 49 (Average) 49 (Average) 46 (Average) Self-Eff Symptom - Percentile 46 % 46 % 34 % T-scores: mean of general population = 50. 5 points is clinically meaningfully difference Percentiles provide an indication of how the patient's score ranks in relation to the general population. Higher percentile rankings indicate better function/quality of life. 50th percentile is the average of the general population and indicates half of respondents had a worse score. OBJECTIVE MEASURES WITH LEVEL OF FUNCTION: LE AROM R LE AROM: supine R Knee Extension: 1 Degrees R Knee Flexion: 141 Degrees LE Strength R LE Strength: Pt can do 10 reps of lateral step down heel taps with good control but not 20 reps. Pt can Dynamometer Strength Right Quadriceps Strength (lbs): 46.3 Left Quadriceps Strength (lbs): 54.8 Quad Strength Limb Symmetry Index (%): 84.49 Right Hamstring Strength (lbs): 21 Left Hamstring Strength (lbs): 30.7 Hamstring Strength Limb Symmetry Index(%): 68.40 Right Hip Abduction Strength (lbs): 16.3 Left Hip Abduction Strength (lbs): 20 Gait Gait Observation: normal Stairs: Pt can ascend and descend 14 steps reciprocally without rail normally. TREATMENT: Carepath: ACL ACL Phase: Phase 2: Early Rehabilitation Phase Therapeutic Exercise: 1: Upright bike seat #7 level #7 x6 minutes. (Pt provided an update on his status. Resistance increased to address muscular endurance.) 2: [employer] random program level 3 x5 minutes (done immediately following bike to work on endurance and cardio) 3: Lateral step down heel taps on R SLS in // bars 2x10 on 6 inch step 4: squats at // bars 2x10 with emphasis on proper form and control. 5: R leg press 64# 2x15 and 1x20 6: R HS curl machine 40# 3x15 7: Multi-hip machine 50# B hip flexion, extension and abduction x15 each B 8: Re-assessment results were shared with patient and used as rationale for plan of care recommendations. Skilled Intervention: Patient was educated in proper exercise technique and purpose for exercises. Skilled judgment was provided in selection of appropriate interventions. Correct performance of therapeutic exercises was facilitated with verbal, visual, and tactile cuing. Patient education as noted. Billing Therapeutic Exercise Treatment Minutes: 45 Total Treatment Time Minutes (timed/untimed): 45 Maurice Pope PT documented in this encounter [facility] 02-16-2023 Note HNO ID: [id number] Author: Maurice Pope PT Service: ? Author Type: Physical Therapist Type: Progress Notes Filed: 02/16/2023 11:36 AM Note Text: Episode Visit Count: 16 Therapist That Will Accept/Oversee The Plan Of Care: Maurice Pope Start of Care Date: 01/02/23 Onset Date: 11/04/22 Plan of Care Certification Date: 12/16/22 Patient Identified by Name and Date of : Yes REHABILITATION AND SPORTS THERAPY PHYSICAL THERAPY TREATMENT NOTE ASSESSMENT: Terry Smith tolerated the session with fatigue, expected muscle soreness, and no issues. He demonstrated improvements in gait and exercise tolerance. The patient will continue to benefit from ongoing skilled physical therapy to progress toward set goals, for reassessment by supervising therapist, and to continue with post-operative protocol. PLAN FOR NEXT VISIT: MARLINE protocol for phase 2 with consideration of progression to phase 3 in the near future. SUBJECTIVE: Patient Reason for Visit: Pt reports being very busy and active yesteday and that he tolerated this well. He reports that the 5,500 steps he had yesterday is the most steps he has had since the injury. He was concerned that the increased activity level may bother him, but it did not. He denies any pain to start today. Pt is very grateful for recent progressive improvements. He reports discussing suture abcess with his referring provider's office. Pain: Pain Pain Level: 0 Pain Location: Knee - Right Frequency: Intermittent Post Treatment Pain Post Treatment Pain Level: 0 Post Treatment Pain Location: Knee - Right Post Treatment Symptoms: During and after session he reported fatigue from a good workout but he denied any increase in pain. OBJECTIVE MEASURES WITH LEVEL OF FUNCTION: Gait Gait Observation: normal TREATMENT: Carepath: ACL ACL Phase: Phase 2: Early Rehabilitation Phase Therapeutic Exercise: 1: Upright bike seat #7 level #6 x5 minutes. (Pt provided an update on his status. Resistance increased to address muscular endurance.) 2: [employer] manual program level 1 x5 minutes (done immediately following bike to work on endurance and cardio) 3: R forward lunges onto dome side of BOSU at // bars 2x10 4: squats on platform side of BOSU at // bars 3x10 5: R leg press 64# 3x15 6: R HS curl machine 40# 2x12 and 1x15 7: wall slides with ball behind back 2x15 8: Multi-hip machine 50# B hip flexion, extension and abduction x10 each B 9: lateral step ups on and over dome side of BOSU at // bars 2x10 Skilled Intervention: Patient was educated in proper exercise technique and purpose for exercises. Skilled judgment was provided in selection of appropriate interventions. Correct performance of therapeutic exercises was facilitated with verbal and visual cuing. Patient education as noted. Billing Therapeutic Exercise Treatment Minutes: 40 Total Treatment Time Minutes (timed/untimed): 40 Maurice Pope, PT [facility] 02-16-2023 History of Presen t illness Narrative Episode Visit Count: 16 Therapist That Will Accept/Oversee The Plan Of Care: Maurice Pope Start of Care Date: 01/02/23 Onset Date: 11/04/22 Plan of Care Certification Date: 12/16/22 Patient Identified by Name and Date of : Yes REHABILITATION AND SPORTS THERAPY PHYSICAL THERAPY TREATMENT NOTE ASSESSMENT: Terry Smith tolerated the session with fatigue, expected muscle soreness, and no issues. He demonstrated improvements in gait and exercise tolerance. The patient will continue to benefit from ongoing skilled physical therapy to progress toward set goals, for reassessment by supervising therapist, and to continue with post-operative protocol. PLAN FOR NEXT VISIT: MARLINE protocol for phase 2 with consideration of progression to phase 3 in the near future. SUBJECTIVE: Patient Reason for Visit: Pt reports being very busy and active yesteday and that he tolerated this well. He reports that the 5,500 steps he had yesterday is the most steps he has had since the injury. He was concerned that the increased activity level may bother him, but it did not. He denies any pain to start today. Pt is very grateful for recent progressive improvements. He reports discussing suture abcess with his referring provider's office. Pain: Pain Pain Level: 0 Pain Location: Knee - Right Frequency: Intermittent Post Treatment Pain Post Treatment Pain Level: 0 Post Treatment Pain Location: Knee - Right Post Treatment Symptoms: During and after session he reported fatigue from a good workout but he denied any increase in pain. OBJECTIVE MEASURES WITH LEVEL OF FUNCTION: Gait Gait Observation: normal TREATMENT: Carepath: ACL ACL Phase: Phase 2: Early Rehabilitation Phase Therapeutic Exercise: 1: Upright bike seat #7 level #6 x5 minutes. (Pt provided an update on his status. Resistance increased to address muscular endurance.) 2: [employer] manual program level 1 x5 minutes (done immediately following bike to work on endurance and cardio) 3: R forward lunges onto dome side of BOSU at // bars 2x10 4: squats on platform side of BOSU at // bars 3x10 5: R leg press 64# 3x15 6: R HS curl machine 40# 2x12 and 1x15 7: wall slides with ball behind back 2x15 8: Multi-hip machine 50# B hip flexion, extension and abduction x10 each B 9: lateral step ups on and over dome side of BOSU at // bars 2x10 Skilled Intervention: Patient was educated in proper exercise technique and purpose for exercises. Skilled judgment was provided in selection of appropriate interventions. Correct performance of therapeutic exercises was facilitated with verbal and visual cuing. Patient education as noted. Billing Therapeutic Exercise Treatment Minutes: 40 Total Treatment Time Minutes (timed/untimed): 40 Maurice Pope PT documented in this encounter [facility] 02-15-2023 Miscellaneous Notes Left a message on patient voice mail. Stated pic was reviewed with Casey MARIEE. Area looks OK and recommend patient continue current regimen. (Clean soap/water or peroxide and pat dry). Offered if patient feels he needs to be seen, he can come in to see Casey on Mon in [place]. Requested a call or Mychart if this is the case. documented in this encounter [facility] 02-14-2023 Note HNO ID: [id number] Author: Maurice Pope PT Service: ? Author Type: Physical Therapist Type: Progress Notes Filed: 02/14/2023 11:36 AM Note Text: Episode Visit Count: 15 Therapist That Will Accept/Oversee The Plan Of Care: Maurice Pope Start of Care Date: 01/02/23 Onset Date: 11/04/22 Plan of Care Certification Date: 12/16/22 Patient Identified by Name and Date of : Yes REHABILITATION AND SPORTS THERAPY PHYSICAL THERAPY TREATMENT NOTE ASSESSMENT: Terry Smith tolerated the session with fatigue, expected muscle soreness, and no issues. He demonstrated improvements in gait and exercise tolerance. The patient will continue to benefit from ongoing skilled physical therapy to progress toward set goals and to continue with post-operative protocol. PLAN FOR NEXT VISIT: Continue with progression of NEGRETE protocol. Progress strengthening to tolerance, especially closed chain strengthening. SUBJECTIVE: Patient Reason for Visit: Pt reports continued progressive improvements. He reports compliance with HEP 2x day. He does report continued issues with suture abcesses. He reports that one that was previously healed expressed fluid across the room today when pressure was applied. Pain: Pain Pain Level: 0 Pain Location: Knee - Right Description: (no pain to start today) Frequency: Intermittent Post Treatment Pain Post Treatment Pain Level: No Change Post Treatment Pain Location: Knee - Right Post Treatment Symptoms: Pt reported fatigue but denied any increase in pain. OBJECTIVE MEASURES WITH LEVEL OF FUNCTION: LE AROM R LE AROM: supine R Knee Extension: 1 Degrees R Knee Flexion: 140 Degrees Gait Gait Observation: nearly normal TREATMENT: Carepath: ACL ACL Phase: Phase 2: Early Rehabilitation Phase Therapeutic Exercise: 1: Upright bike seat #7 level #6 x6 minutes. (Pt provided an update on his status. Resistance increased to address muscular endurance.) 2: supine quad sets L 1x10 3: supine R heel slideds 1x10 4: L sidelying R hip abd series 2x10 each. (0-50%, 50%-100%, marching and circles) with 1.5# ankle weight. 5: R leg press 64# 2x10 and 1x15 6: R HS curl machine 40# 3x10 7: wall slides with ball behind back 2x15 8: Multi-hip machine 40# B hip flexion, extension and abduction x15 each B 9: lateral step ups on and over dome side of BOSU at // bars 2x10 10: Pt was advised to contact referring provider's office about suture abcesses. Skilled Intervention: Patient was educated in proper exercise technique and purpose for exercises. Skilled judgment was provided in selection of appropriate interventions. Correct performance of therapeutic exercises was facilitated with verbal and visual cuing. Patient education as noted. Billing Therapeutic Exercise Treatment Minutes: 40 Total Treatment Time Minutes (timed/untimed): 40 Maurice Pope PT [facility] 02-14-2023 History of Presen t illness Narrative Episode Visit Count: 15 Therapist That Will Accept/Oversee The Plan Of Care: Maurice Pope Start of Care Date: 01/02/23 Onset Date: 11/04/22 Plan of Care Certification Date: 12/16/22 Patient Identified by Name and Date of : Yes REHABILITATION AND SPORTS THERAPY PHYSICAL THERAPY TREATMENT NOTE ASSESSMENT: Terry Smith tolerated the session with fatigue, expected muscle soreness, and no issues. He demonstrated improvements in gait and exercise tolerance. The patient will continue to benefit from ongoing skilled physical therapy to progress toward set goals and to continue with post-operative protocol. PLAN FOR NEXT VISIT: Continue with progression of NEGRETE protocol. Progress strengthening to tolerance, especially closed chain strengthening. SUBJECTIVE: Patient Reason for Visit: Pt reports continued progressive improvements. He reports compliance with HEP 2x day. He does report continued issues with suture abcesses. He reports that one that was previously healed expressed fluid across the room today when pressure was applied. Pain: Pain Pain Level: 0 Pain Location: Knee - Right Description: (no pain to start today) Frequency: Intermittent Post Treatment Pain Post Treatment Pain Level: No Change Post Treatment Pain Location: Knee - Right Post Treatment Symptoms: Pt reported fatigue but denied any increase in pain. OBJECTIVE MEASURES WITH LEVEL OF FUNCTION: LE AROM R LE AROM: supine R Knee Extension: 1 Degrees R Knee Flexion: 140 Degrees Gait Gait Observation: nearly normal TREATMENT: Carepath: ACL ACL Phase: Phase 2: Early Rehabilitation Phase Therapeutic Exercise: 1: Upright bike seat #7 level #6 x6 minutes. (Pt provided an update on his status. Resistance increased to address muscular endurance.) 2: supine quad sets L 1x10 3: supine R heel slideds 1x10 4: L sidelying R hip abd series 2x10 each. (0-50%, 50%-100%, marching and circles) with 1.5# ankle weight. 5: R leg press 64# 2x10 and 1x15 6: R HS curl machine 40# 3x10 7: wall slides with ball behind back 2x15 8: Multi-hip machine 40# B hip flexion, extension and abduction x15 each B 9: lateral step ups on and over dome side of BOSU at // bars 2x10 10: Pt was advised to contact referring provider's office about suture abcesses. Skilled Intervention: Patient was educated in proper exercise technique and purpose for exercises. Skilled judgment was provided in selection of appropriate interventions. Correct performance of therapeutic exercises was facilitated with verbal and visual cuing. Patient education as noted. Billing Therapeutic Exercise Treatment Minutes: 40 Total Treatment Time Minutes (timed/untimed): 40 Maurice Pope PT documented in this encounter [facility] 02-09-2023 Note HNO ID: [id number] Author: Maurice Pope PT Service: ? Author Type: Physical Therapist Type: Progress Notes Filed: 02/09/2023 11:44 AM Note Text: Episode Visit Count: 14 Therapist That Will Accept/Oversee The Plan Of Care: Maurice Pope Start of Care Date: 01/02/23 Onset Date: 11/04/22 Plan of Care Certification Date: 12/16/22 Patient Identified by Name and Date of : Yes REHABILITATION AND SPORTS THERAPY PHYSICAL THERAPY TREATMENT NOTE ASSESSMENT: Terry Smith tolerated the session with fatigue, expected muscle soreness, and no issues. He demonstrated improvements in gait, pain and exercise tolerance. The patient will continue to benefit from ongoing skilled physical therapy to progress toward set goals and to continue with post-operative protocol. PLAN FOR NEXT VISIT: Continue with progression of NEGRETE protocol. Continue to review proper gait with and without walking stick to help pt overcome functional rigidity of R knee. Progress strengthening to tolerance. SUBJECTIVE: Patient Reason for Visit: Pt reports that this is the best his R knee has felt since his injury. He reports being very active since last session and even push mowed his hillside at home. He reports that he was cautious and this went very well. He denies any pain or problems with therex done last session, even the new things. Pain: Pain Pain Level: 0 Pain Location: Knee - Right Description: (no pain to start today) Frequency: Intermittent Post Treatment Pain Post Treatment Pain Level: No Change Post Treatment Pain Location: Knee - Right Post Treatment Pain Description: (soreness and fatigue) Post Treatment Symptoms: Pt denied any increase in pain today, just soreness and fatigue. OBJECTIVE MEASURES WITH LEVEL OF FUNCTION: LE AROM R LE AROM: supine R Knee Extension: 2 Degrees R Knee Flexion: 139 Degrees Gait Gait Observation: dramatically improved today and almost fully normal, just slow and cautious. TREATMENT: Carepath: ACL ACL Phase: Phase 2: Early Rehabilitation Phase Therapeutic Exercise: 1: Upright bike seat #7 level #5 x6 minutes. (Protocol, realistic expectations and his current stage of recovery discussed in detail. Pt provided an update on his status.) 2: prone hang without weight x3 minutes reviewed for HEP. 3: supine R heel slideds 2x10 4: *L sidelying R hip abd series 2x10 each. (0-50%, 50%-100%, marching and circles) 5: R leg press 64# 3x10 6: R HS curl machine 30# 3x15 7: wall slides with ball behind back 2x10 8: Multi-hip machine 40# B hip flexion, extension and abduction x10 each B Skilled Intervention: Patient was educated in proper exercise technique and purpose for exercises. Reviewed and educated patient on additions/changes for home exercise program as above (*). Skilled judgment was provided in selection of appropriate interventions. Provided written instruction for home exercise program to facilitate proper performance and compliance. Correct performance of therapeutic exercises was facilitated with verbal, visual, and tactile cuing. Patient education as noted. Billing Therapeutic Exercise Treatment Minutes: 45 Total Treatment Time Minutes (timed/untimed): 45 Maurice Pope PT [facility] 02-09-2023 History of Presen t illness Narrative Episode Visit Count: 14 Therapist That Will Accept/Oversee The Plan Of Care: Maurice Pope Start of Care Date: 01/02/23 Onset Date: 11/04/22 Plan of Care Certification Date: 12/16/22 Patient Identified by Name and Date of : Yes REHABILITATION AND SPORTS THERAPY PHYSICAL THERAPY TREATMENT NOTE ASSESSMENT: Terry Smith tolerated the session with fatigue, expected muscle soreness, and no issues. He demonstrated improvements in gait, pain and exercise tolerance. The patient will continue to benefit from ongoing skilled physical therapy to progress toward set goals and to continue with post-operative protocol. PLAN FOR NEXT VISIT: Continue with progression of NERGETE protocol. Continue to review proper gait with and without walking stick to help pt overcome functional rigidity of R knee. Progress strengthening to tolerance. SUBJECTIVE: Patient Reason for Visit: Pt reports that this is the best his R knee has felt since his injury. He reports being very active since last session and even push mowed his hillside at home. He reports that he was cautious and this went very well. He denies any pain or problems with therex done last session, even the new things. Pain: Pain Pain Level: 0 Pain Location: Knee - Right Description: (no pain to start today) Frequency: Intermittent Post Treatment Pain Post Treatment Pain Level: No Change Post Treatment Pain Location: Knee - Right Post Treatment Pain Description: (soreness and fatigue) Post Treatment Symptoms: Pt denied any increase in pain today, just soreness and fatigue. OBJECTIVE MEASURES WITH LEVEL OF FUNCTION: LE AROM R LE AROM: supine R Knee Extension: 2 Degrees R Knee Flexion: 139 Degrees Gait Gait Observation: dramatically improved today and almost fully normal, just slow and cautious. TREATMENT: Carepath: ACL ACL Phase: Phase 2: Early Rehabilitation Phase Therapeutic Exercise: 1: Upright bike seat #7 level #5 x6 minutes. (Protocol, realistic expectations and his current stage of recovery discussed in detail. Pt provided an update on his status.) 2: prone hang without weight x3 minutes reviewed for HEP. 3: supine R heel slideds 2x10 4: *L sidelying R hip abd series 2x10 each. (0-50%, 50%-100%, marching and circles) 5: R leg press 64# 3x10 6: R HS curl machine 30# 3x15 7: wall slides with ball behind back 2x10 8: Multi-hip machine 40# B hip flexion, extension and abduction x10 each B Skilled Intervention: Patient was educated in proper exercise technique and purpose for exercises. Reviewed and educated patient on additions/changes for home exercise program as above (*). Skilled judgment was provided in selection of appropriate interventions. Provided written instruction for home exercise program to facilitate proper performance and compliance. Correct performance of therapeutic exercises was facilitated with verbal, visual, and tactile cuing. Patient education as noted. Billing Therapeutic Exercise Treatment Minutes: 45 Total Treatment Time Minutes (timed/untimed): 45 Maurice Pope PT documented in this encounter [facility] 02-06-2023 Note HNO ID: [id number] Author: Maurice Pope PT Service: ? Author Type: Physical Therapist Type: Progress Notes Filed: 02/06/2023 8:33 AM Note Text: Episode Visit Count: 13 Therapist That Will Accept/Oversee The Plan Of Care: Maurice Pope Start of Care Date: 01/02/23 Onset Date: 11/04/22 Plan of Care Certification Date: 12/16/22 Patient Identified by Name and Date of : Yes REHABILITATION AND SPORTS THERAPY PHYSICAL THERAPY TREATMENT NOTE ASSESSMENT: Terry Smith tolerated the session with fatigue, expected muscle soreness, and no issues. He demonstrated improvements in gait and exercise tolerance. The patient will continue to benefit from ongoing skilled physical therapy to progress toward set goals and to continue with post-operative protocol. PLAN FOR NEXT VISIT: Continue with progression of NEGRETE protocol. Continue to review proper gait with and without walking stick to help pt overcome functional rigidity of R knee. Progress strengthening to tolerance. SUBJECTIVE: Patient Reason for Visit: Pt reports that he has been compliant with HEP. He acknolwledges that he will have good days and bad days but he is focused not getting too high or too low. He reports that his R knee feels unstable and not normal at push off on R. He reports that he is not having any pain to start today. Pain: Pain Pain Level: 0 Pain Location: Knee - Right Description: (no pain to start today) Frequency: Intermittent Post Treatment Pain Post Treatment Pain Level: No Change Post Treatment Pain Location: Knee - Right Post Treatment Symptoms: Pt reported mild fatigue but denied any increase in pain during or after session. OBJECTIVE MEASURES WITH LEVEL OF FUNCTION: LE AROM R LE AROM: supine R Knee Extension: 1 Degrees R Knee Flexion: 131 Degrees Gait Gait Observation: (P) pt gait varies in quality TREATMENT: Carepath: ACL ACL Phase: Phase 2: Early Rehabilitation Phase Therapeutic Exercise: 1: Upright bike seat #7 level #3 x6 minutes. (Protocol, realistic expectations and his current stage of recovery discussed in detail.) 2: stairmaster manual program level 1 x5 minutes for muscle and cardio endurance. 3: supine gravity stretch for R knee extension with foam roll under ankle with 3# weight on front of knee x3 minutes 4: supine quad sets reviewed to facilitate knee extension. 5: prone hang without weight x3 minutes reviewed for HEP. 6: R leg press 64# 2x10 7: mini-squats at // bars 2x10 with emphasis on proper form and biomechanics 8: L sidelying R hip abd series 1x10 each. (0-50%, 50%-100%, marching and circles) 9: R HS curl machine 30# 2x10 Skilled Intervention: Patient was educated in proper exercise technique and purpose for exercises. Skilled judgment was provided in selection of appropriate interventions. Correct performance of therapeutic exercises was facilitated with verbal, visual, and tactile cuing. Patient education as noted. Billing Therapeutic Exercise Treatment Minutes: 42 Total Treatment Time Minutes (timed/untimed): 42 Maurice Pope, PT [facility] 02-06-2023 History of Presen t illness Narrative Episode Visit Count: 13 Therapist That Will Accept/Oversee The Plan Of Care: Maurice Pope Start of Care Date: 01/02/23 Onset Date: 11/04/22 Plan of Care Certification Date: 12/16/22 Patient Identified by Name and Date of : Yes REHABILITATION AND SPORTS THERAPY PHYSICAL THERAPY TREATMENT NOTE ASSESSMENT: Terry Smith tolerated the session with fatigue, expected muscle soreness, and no issues. He demonstrated improvements in gait and exercise tolerance. The patient will continue to benefit from ongoing skilled physical therapy to progress toward set goals and to continue with post-operative protocol. PLAN FOR NEXT VISIT: Continue with progression of NEGRETE protocol. Continue to review proper gait with and without walking stick to help pt overcome functional rigidity of R knee. Progress strengthening to tolerance. SUBJECTIVE: Patient Reason for Visit: Pt reports that he has been compliant with HEP. He acknolwledges that he will have good days and bad days but he is focused not getting too high or too low. He reports that his R knee feels unstable and not normal at push off on R. He reports that he is not having any pain to start today. Pain: Pain Pain Level: 0 Pain Location: Knee - Right Description: (no pain to start today) Frequency: Intermittent Post Treatment Pain Post Treatment Pain Level: No Change Post Treatment Pain Location: Knee - Right Post Treatment Symptoms: Pt reported mild fatigue but denied any increase in pain during or after session. OBJECTIVE MEASURES WITH LEVEL OF FUNCTION: LE AROM R LE AROM: supine R Knee Extension: 1 Degrees R Knee Flexion: 131 Degrees Gait Gait Observation: (P) pt gait varies in quality TREATMENT: Carepath: ACL ACL Phase: Phase 2: Early Rehabilitation Phase Therapeutic Exercise: 1: Upright bike seat #7 level #3 x6 minutes. (Protocol, realistic expectations and his current stage of recovery discussed in detail.) 2: stairmaster manual program level 1 x5 minutes for muscle and cardio endurance. 3: supine gravity stretch for R knee extension with foam roll under ankle with 3# weight on front of knee x3 minutes 4: supine quad sets reviewed to facilitate knee extension. 5: prone hang without weight x3 minutes reviewed for HEP. 6: R leg press 64# 2x10 7: mini-squats at // bars 2x10 with emphasis on proper form and biomechanics 8: L sidelying R hip abd series 1x10 each. (0-50%, 50%-100%, marching and circles) 9: R HS curl machine 30# 2x10 Skilled Intervention: Patient was educated in proper exercise technique and purpose for exercises. Skilled judgment was provided in selection of appropriate interventions. Correct performance of therapeutic exercises was facilitated with verbal, visual, and tactile cuing. Patient education as noted. Billing Therapeutic Exercise Treatment Minutes: 42 Total Treatment Time Minutes (timed/untimed): 42 Maurice Pope PT documented in this encounter [facility] 01-31-2023 Note HNO ID: [id number] Author: Maurice Pope PT Service: ? Author Type: Physical Therapist Type: Progress Notes Filed: 01/30/2023 10:57 PM Note Text: Episode Visit Count: 12 Therapist That Will Accept/Oversee The Plan Of Care: Maurice Pope Start of Care Date: 01/02/23 Onset Date: 11/04/22 Plan of Care Certification Date: 12/16/22 Patient Identified by Name and Date of : Yes REHABILITATION AND SPORTS THERAPY PHYSICAL THERAPY TREATMENT NOTE ASSESSMENT: Terry Smith tolerated the session with no issues. He demonstrated improvements in exercise tolerance and quality of gait. The patient will continue to benefit from ongoing skilled physical therapy to progress toward set goals and to continue with post-operative protocol. PLAN FOR NEXT VISIT: Continue with progression of NEGRETE protocol. Continue to review proper gait with and without walking stick to help pt overcome functional rigidity of R knee. Consider continued use of treadmill to normalize gait prn. SUBJECTIVE: Patient Reason for Visit: Pt had a follow up with referring provider on 01/27/23. He reports that this went well. He is to return for follow up in 4 weeks and continue PT. EMR indicates that reassurance was provided. Pt reports that he had a couple of bad days and that today he is feeling much better. He does report developing another suture abcess 01/28/23. Pain: Pain Pain Level: 0 Pain Location: Knee - Right Description: (pain fluctuates but at start of visit he was not having specific pain.) Frequency: Intermittent Post Treatment Pain Post Treatment Pain Level: No Change OBJECTIVE MEASURES WITH LEVEL OF FUNCTION: LE AROM R LE AROM: supine R Knee Extension: 0 Degrees R Knee Flexion: 131 Degrees Gait Gait Observation: quality of gait fluctuates both on level ground and on treadmill. At times he does not achieve TKE on R and at times R knee is held rigid and does not flex with swing phase. TREATMENT: Carepath: ACL ACL Phase: Phase 2: Early Rehabilitation Phase Therapeutic Exercise: 1: Upright bike seat #7 level #3 x6 minutes. (Protocol, realistic expectations and his current stage of recovery discussed in detail.) 2: prone hang without weight x3 minutes reviewed for HEP. 3: prone TKE quad sets with toes on plinth 2x10 4: supine quad sets with 2 second holds 2x10 to activate quads and facilitate knee extension. 5: supine heel slides 2x10 6: standing TKE with pink t-band 3x15 in front of mirror with emphasis on TKE compared to uninvolved. 7: mini-squats at // bars 2x10 with emphasis on proper form and biomechanics 8: R forward step ups on 7 inch step(2 green) in bars 2x10 9: R lateral step up on 7 inch step (2 green) 2x10 10: prone R knee flexion stretch with strap 3x30 seconds Skilled Intervention: Patient was educated in proper exercise technique and purpose for exercises. Skilled judgment was provided in selection of appropriate interventions. Correct performance of therapeutic exercises was facilitated with verbal, visual, and tactile cuing. Patient education as noted. Gait Trainin: Gait training done on level ground with use of mirror and on treadmill at 1.0 mph and 2.0 mph. Deviations identified in gait section were addressed in both gait training sessions. Results were similar on level ground and treadmill. Skilled Intervention: Facilitated proper gait cycle with the use of verbal and visual cues for correction of gait deviations identified in the objective section above. Skilled judgment used to assess selection and proper use of assistive device. Advice provided again on use of walking stick prn. Billing Therapeutic Exercise Treatment Minutes: 30 Gait Training Treatment Minutes: 15 Total Treatment Time Minutes (timed/untimed): 45 Maurice Pope PT [facility] 01-27-2023 Note HNO ID: [id number] Author: Stacy Hassan Service: ? Author Type: ? Type: Progress Notes Filed: 01/27/2023 6:50 PM Note Text: DATE OF PROCEDURE: December 29, 2022 OPERATION: 1. Right knee arthroscopically-assisted anterior cruciate ligament reconstruction with quintuple stranded hamstring autograft 2. Diagnostic arthroscopy. 3. Examination under anesthesia. 4. Right knee partial lateral meniscectomy REF: Dr. Ahn Interval history: Terry Smith returns today status post right knee surgery. Chief complaint is post-op follow-up. Doing okay. Review of Systems: CV: No chest pain Pulm: No short of breath HEENT: No head ache General: no fevers, chills, nausea/vomiting, malaise Physical Examination: This is a well appearing, well nourished patient in no acute distress. Head is normocephalic and atraumatic. White sclera and pink conjunctiva. Mucous membranes are moist. Breathes easily and has normal chest wall excursion. Affect is normal. Right knee: negative Gian's Range of motion: Flexion is full, extension is full. Effusion: 1+. Incisions: erythematous, painful lesion of suture on right mid-thigh. No infection. Imaging: none Impression: Terry Smith is a 37 year old male, who is 1 month status post right ACL reconstruction and partial lateral menisectomy. Plan: Patient reassurance Local wound care Follow-up in 1 month By signing my name below, I, Stacy Hassan, attest that this documentation has been prepared under the direction and in the presence of Dr. Jim Reed. Electronically signed, IRON Massey January 27, 2023 3:58 PM [facility] 01-27-2023 Note HNO ID: [id number] Author: Jim Reed MD Service: ? Author Type: Physician Type: Progress Notes Filed: 01/27/2023 6:50 PM Note Text: DATE OF PROCEDURE: December 29, 2022 OPERATION: 1. Right knee arthroscopically-assisted anterior cruciate ligament reconstruction with quintuple stranded hamstring autograft 2. Diagnostic arthroscopy. 3. Examination under anesthesia. 4. Right knee partial lateral meniscectomy REF: Dr. Ahn Interval history: Terry Smith returns today status post right knee surgery. Chief complaint is right knee resolved pain. Doing well. A few stitch reactions . Review of Systems: CV: No chest pain Pulm: No short of breath HEENT: No head ache General: no fevers, chills, nausea/vomiting, malaise Physical Examination: This is a well appearing, well nourished patient in no acute distress. Head is normocephalic and atraumatic. White sclera and pink conjunctiva. Mucous membranes are moist. Breathes easily and has normal chest wall excursion. Affect is normal. right knee: negative gian's Range of motion: Flexion is near full, extension is near full . Effusion: 1 +. Incisions: healed . No infection. Imaging: none Impression: Terry Smith is a 37 year old male, who is 1 month status post right knee ACLR and PLM. Doing well . Plan: PT return to clinic in 1 month reassurance Jim Reed MD [facility] 01-25-2023 Note HNO ID: [id number] Author: Maurice Pope PT Service: ? Author Type: Physical Therapist Type: Progress Notes Filed: 01/25/2023 7:33 PM Note Text: Episode Visit Count: 11 Therapist That Will Accept/Oversee The Plan Of Care: Maurice Pope Start of Care Date: 01/02/23 Onset Date: 11/04/22 Plan of Care Certification Date: 12/16/22 Patient Identified by Name and Date of : Yes REHABILITATION AND SPORTS THERAPY PHYSICAL THERAPY PROGRESS REPORT PLAN OF CARE UPDATE: Assessment: Terry Smith demonstrates moderate improvement in walking, stair negotiation, and working. He has progressed toward goals. Patient continues to present with impairments in ADL's, flexibility, gait, overall function, range of motion, strength, symptom management, and wound healing that interfere with . Current prognosis is Excellent due to: current objective clinical presentation, good overall health status, acuteness of condition, positive past response to therapy, good support system/ coping skills, within-session changes. He will benefit from continued skilled therapy services to meet the updated goals for this plan of care as noted below. Updated: 01/25/23 Goals for Episode of Care: created on 01/02/23 through 04/24/23 Phase 1 to Phase 2 Criteria: Criterion for Progression: Complete 20 straight leg raises with no quadriceps lag. - MET Range of motion Full active knee extension (within 3 degrees) Active Flexion to 110 degrees. - MET Full quadriceps activation: full, without visual inhibition. - MET Normalized Gait. - Partially MET Discontinuation of Crutch/Immobilizer devices. - Partially MET Phase 2 to Phase 3 Criteria: Criterion for Progression: Range of motion: full, equal to contralateral. Stairs: 10-12 steps, ascent/descent in a reciprocal pattern with (6-8 height). Double leg squat: 60-90 degree bend, equal weight bearing, proper mechanics. Demonstrates functional strength and control with performing daily activities. Phase 3 to Phase 4 Criteria: Criterion for Progression: Range of Motion: maintained full and equal to contralateral limb Strength symmetry testin% symmetry using any of the following methods: Dynamometer testing Motor control: 6 inch eccentric step-downs with heel tap, 20 reps, proper mechanics. Hopping in place: double leg and single leg, no pain, proper mechanics. Outcomes: IKDC greater than or equal to 7, ADL-RSI greater than or equal to 50-60 score. Phase 4 to Phase 5 Criteria: Criterion for Progression: Maximum vertical jump without pain or instability. 80% of contralateral on single hop tests. Normalized running. Y-balance - anterior reach: less than 4 cm asymmetry. Strength: 85% symmetry. IKDC Question (Global Rating of Knee Function) score of 8 or greater. Phase 5 to Return to Sport Criteria: Criterion for Progression: Strength: Greater than or equal to 90% symmetry. Hop testin% symmetry with proper mechanics. Pain free transition to activities and no functional complaints. Confidence when running, cutting, jumping at full speed. IKDC Question (Global Rating of Knee Function) of > 9. Patient Goals: regain prior functional status and play ultimate frisbee Planned Interventions, Frequency, and Duration: 2x/week, 12 weeks Total Number of Visits Planned: 24 Patient to be seen for Therapeutic exercise (75728), Neuromuscular re-education (53879), Therapeutic activities (44080), Self-penitentiary management (03018), Gait Training (16212), Patient/Family/Caregiver Education, Body Mechanics Training, General Conditioning PLAN FOR NEXT VISIT: Continue with progression of NEGRETE protocol. Continue to review proper gait with and without walking stick to help pt overcome functional rigidity of R knee. Consider use of treadmill to normalize gait prn. Classification ACL-RSI Raw Score: 36 ACL-RSI Final Score %: 300 IKDC #10: 3 SUBJECTIVE: Patient Reason for Visit: Pt reports that he is getting progressively better and that he is pleased with this. He reports that his gait, pain, ROM and strength are all improving. He reports that his progress has not been linear because his status fluctuates but is improving overall. He is pleased with his status this soon after surgery. He does report developing a new abcess at superior lateral surgical incision that is very similar to the one he had at the inferior medial incision. He reports that the first abcess resolved on its own and that the new one began 36-48 hours ago. He denies any pain to start today but that he does have pain at times. Pain: Pain Pain Level: 0 Pain Location: Knee - Right Description: (no pain to start today) Frequency: Intermittent Post Treatment Pain Post Treatment Pain Level: No Change Post Treatment Symptoms: Pt continued to deny any pain after session. PROMIS Scales Higher is Better 01/13/2023 12/15/2022 Phys Func - Score 42 (mild dysfunction) 39 (mode (more content not included)... [facility] 01-25-2023 History of Presen t illness Narrative Episode Visit Count: 11 Therapist That Will Accept/Oversee The Plan Of Care: Maurice Pope Start of Care Date: 01/02/23 Onset Date: 11/04/22 Plan of Care Certification Date: 12/16/22 Patient Identified by Name and Date of : Yes REHABILITATION AND SPORTS THERAPY PHYSICAL THERAPY PROGRESS REPORT PLAN OF CARE UPDATE: Assessment: Terry Smith demonstrates moderate improvement in walking, stair negotiation, and working. He has progressed toward goals. Patient continues to present with impairments in ADL's, flexibility, gait, overall function, range of motion, strength, symptom management, and wound healing that interfere with . Current prognosis is Excellent due to: current objective clinical presentation, good overall health status, acuteness of condition, positive past response to therapy, good support system/ coping skills, within-session changes. He will benefit from continued skilled therapy services to meet the updated goals for this plan of care as noted below. Updated: 01/25/23 Goals for Episode of Care: created on 01/02/23 through 04/24/23 Phase 1 to Phase 2 Criteria: Criterion for Progression: Complete 20 straight leg raises with no quadriceps lag. - MET Range of motion Full active knee extension (within 3 degrees) Active Flexion to 110 degrees. - MET Full quadriceps activation: full, without visual inhibition. - MET Normalized Gait. - Partially MET Discontinuation of Crutch/Immobilizer devices. - Partially MET Phase 2 to Phase 3 Criteria: Criterion for Progression: Range of motion: full, equal to contralateral. Stairs: 10-12 steps, ascent/descent in a reciprocal pattern with (6-8 height). Double leg squat: 60-90 degree bend, equal weight bearing, proper mechanics. Demonstrates functional strength and control with performing daily activities. Phase 3 to Phase 4 Criteria: Criterion for Progression: Range of Motion: maintained full and equal to contralateral limb Strength symmetry testin% symmetry using any of the following methods: Dynamometer testing Motor control: 6 inch eccentric step-downs with heel tap, 20 reps, proper mechanics. Hopping in place: double leg and single leg, no pain, proper mechanics. Outcomes: IKDC greater than or equal to 7, ADL-RSI greater than or equal to 50-60 score. Phase 4 to Phase 5 Criteria: Criterion for Progression: Maximum vertical jump without pain or instability. 80% of contralateral on single hop tests. Normalized running. Y-balance - anterior reach: less than 4 cm asymmetry. Strength: 85% symmetry. IKDC Question (Global Rating of Knee Function) score of 8 or greater. Phase 5 to Return to Sport Criteria: Criterion for Progression: Strength: Greater than or equal to 90% symmetry. Hop testin% symmetry with proper mechanics. Pain free transition to activities and no functional complaints. Confidence when running, cutting, jumping at full speed. IKDC Question (Global Rating of Knee Function) of > 9. Patient Goals: regain prior functional status and play ultimate [employer] Planned Interventions, Frequency, and Duration: 2x/week, 12 weeks Total Number of Visits Planned: 24 Patient to be seen for Therapeutic exercise (09204), Neuromuscular re-education (60281), Therapeutic activities (24866), Self-penitentiary management (19254), Gait Training (04543), Patient/Family/Caregiver Education, Body Mechanics Training, General Conditioning PLAN FOR NEXT VISIT: Continue with progression of NEGRETE protocol. Continue to review proper gait with and without walking stick to help pt overcome functional rigidity of R knee. Consider use of treadmill to normalize gait prn. Classification ACL-RSI Raw Score: 36 ACL-RSI Final Score %: 300 IKDC #10: 3 SUBJECTIVE: Patient Reason for Visit: Pt reports that he is getting progressively better and that he is pleased with this. He reports that his gait, pain, ROM and strength are all improving. He reports that his progress has not been linear because his status fluctuates but is improving overall. He is pleased with his status this soon after surgery. He does report developing a new abcess at superior lateral surgical incision that is very similar to the one he had at the inferior medial incision. He reports that the first abcess resolved on its own and that the new one began 36-48 hours ago. He denies any pain to start today but that he does have pain at times. Pain: Pain Pain Level: 0 Pain Location: Knee - Right Description: (no pain to start today) Frequency: Intermittent Post Treatment Pain Post Treatment Pain Level: No Change Post Treatment Symptoms: Pt continued to deny any pain after session. PROMIS Scales Higher is Better 01/13/2023 12/15/2022 Phys Func - Score 42 (mild dysfunction) 39 (moderate dysfunction) Phys Func - Percentile 21 % 14 % Self-Eff Symptom - Score 49 (Average) 46 (Average) Self-Eff Symptom - Percentile 46 % 34 % T-scores: mean of general population = 50. 5 points is clinically meaningfully difference Percentiles provide an indication of how the patient's score ranks in relation to the general population. Higher percentile rankings indicate better function/quality of life. 50th percentile is the average of the general population and indicates half of respondents had a worse score. OBJECTIVE MEASURES WITH LEVEL OF FUNCTION: Knee Observations R Knee Presents with: Incision R Incision: inferior medial incision that was an abcess is dramatically improved but he has new onset of very similar abcess at superior lateral incision. This new issue began 36-48 hours ago based on pt report. R Circumference 6 inches above mid-patella (inches): 16.25 inches R Circumference mid patella (inches): 15 inches R Circumference 6 inches below mid-patella (inches): 13.5 inches LE AROM R LE AROM: supine R Knee Extension: 2 Degrees R Knee Flexion: 134 Degrees LE Strength R LE Strength: Pt currently has great quad activation that has improved significantly in recent visits. R Knee Extension Functional Strength (L3): no quad lag Gait Gait Observation: Quality of gait varies but is getting progressively better. Initial deficits were small, asymmetrical and slow step lengths. He also lacked TKE prior to heel strike on R. He frequently keeps R knee rigid throughout gait cycle, but he is capable of improving both swing phase and TKE with intentional effort. Looking up and increasing his speed have helped these things. He also has a lack of consistent confidence with gait and therefore he has been advised to use cane or walking stick because with these devices, his confidence increases and quality of gait improves. He does not require the device for support but carrying it helps to make his gait smoother and more normal. TREATMENT: [facility]: ACL ACL Phase: Phase 2: Early Rehabilitation Phase Therapeutic Exercise: 1: Upright bike seat #7 level #3 x6 minutes. (Protocol, realistic expectations and his current stage of recovery discussed in detail.) 2: prone hang without weight x3 minutes reviewed for HEP. 3: prone TKE quad sets with toes on plinth 2x10 4: supine quad sets with 2 second holds 2x10 to activate quads and facilitate knee extension. 5: supine heel slides 2x10 6: standing TKE with pink t-band 3x15 in front of mirror with emphasis on TKE compared to uninvolved. 7: mini-squats at // bars 2x10 with emphasis on proper form and biomechanics 8: R forward step ups on 6 inch step in bars 2x10 9: R lateral step up on 6 inch step 2x10 Skilled Intervention: Patient was educated in proper exercise technique and purpose for exercises. Skilled judgment was provided in selection of appropriate interventions. Correct performance of therapeutic exercises was facilitated with verbal and visual cuing. Patient education as noted. Gait Trainin: Gait deviations above were explained and gait training done to normalize gait. Skilled Intervention: Facilitated proper gait cycle with the use of verbal and visual cues for correction of gait deviations identified in the objective section above. Skilled judgment used to assess selection and proper use of assistive device. Billing Therapeutic Exercise Treatment Minutes: 30 Gait Training Treatment Minutes: 15 Total Treatment Time Minutes (timed/untimed): 45 Maurice Pope PT documented in this encounter [facility] 01-23-2023 Note HNO ID: [id number] Author: Maurice Pope PT Service: ? Author Type: Physical Therapist Type: Progress Notes Filed: 01/23/2023 6:10 PM Note Text: Episode Visit Count: 10 Therapist That Will Accept/Oversee The Plan Of Care: Maurice Pope Start of Care Date: 01/02/23 Onset Date: 11/04/22 Plan of Care Certification Date: 12/16/22 Patient Identified by Name and Date of : Yes REHABILITATION AND SPORTS THERAPY PHYSICAL THERAPY TREATMENT NOTE ASSESSMENT: Terry Smith tolerated the session with fatigue, expected muscle soreness, and no issues. He demonstrated improvements in ROM and gait intermittently. The patient will continue to benefit from ongoing skilled physical therapy to progress toward set goals and to continue with post-operative protocol. PLAN FOR NEXT VISIT: Continue with progression of NEGRETE protocol. Continue to review proper gait with and without walking stick to help pt overcome fear. Consider use of treadmill to normalize gait. SUBJECTIVE: Patient Reason for Visit: Pt reports that he is very committed to normalizing his gait and therefore he brought a walking stick to therapy today. He is open to any and all suggestions. He acknowledges that fear is a subconscious mental block to normalizing his gait and that he worries unnecessarily at times. He reports mild pain in R knee to start today, but that his HS pain is much less and improving. He reports developing concern since last session that his R knee is unstable. He denies an injury or incident that has caused him to doubt the stability, he just does. Pain: Pain Pain Level: (1-2/10) Pain Location: Knee - Right Description: (mild) Frequency: Intermittent Post Treatment Pain Post Treatment Pain Level: No Change Post Treatment Pain Location: Knee - Right Post Treatment Symptoms: He reported expected muscle fatigue but he denied any increase in pain after therex. OBJECTIVE MEASURES WITH LEVEL OF FUNCTION: Knee Observations R Knee Presents with: Ecchymosis R Ecchymosis : progressive improvement LE AROM R LE AROM: supine R Knee Extension: 0 Degrees R Knee Flexion: 135 Degrees LE Strength R Knee Extension Functional Strength (L3): no quad lag Special Tests - Knee Knee Special Tests: Gian Gian: Right Negative, Left Negative Gait Gait Observation: gait continues to be inconsistent. At times, gait is normal but at times, without explanation, his R knee does not achieve TKE at heel strike and does not flex knee during swing phase. Also, his L step length is short and asymmetrical at times. TREATMENT: [facility]path: ACL ACL Phase: Phase 2: Early Rehabilitation Phase Therapeutic Exercise: 1: Upright bike seat #7 level #3 x6 minutes. (Protocol, realistic expectations and his current stage of recovery discussed in detail.) 2: prone hang without weight x3 minutes reviewed but is not necessary secondary to improved ROM and gait. 3: prone TKE quad sets with toes on plinth 2x10 4: supine quad sets with 2 second holds 2x10 to activate quads and facilitate knee extension. 5: supine heel slides 2x10 6: standing TKE with pink t-band 3x10 in front of mirror with emphasis on TKE compared to uninvolved. 7: 4-way R SLR 2x10 each with 1.5# for all 8: R forward step ups on 6 inch step in bars 2x10 9: R lateral step up on 6 inch step 2x10 Skilled Intervention: Patient was educated in proper exercise technique and purpose for exercises. Skilled judgment was provided in selection of appropriate interventions. Correct performance of therapeutic exercises was facilitated with verbal and visual cuing. Patient education as noted. Gait Trainin: Gait deviations observed were explained and proper correction explained. Pt practiced while therapist provided verbal cues and mirror used for feedback. More free movement of R knee in swing phase emphasized. His walking stick height was adjusted and proper use reviewed and demonstrated. Skilled Intervention: Facilitated proper gait cycle with the use of verbal and visual cues for correction of gait deviations identified in the objective section above. Skilled judgment used to assess selection, proper sizing, and proper use of assistive device. Assistive device is not needed but his gait is more normal with the walking stick because is increases his confidence. Billing Therapeutic Exercise Treatment Minutes: 40 Gait Training Treatment Minutes: 20 Total Treatment Time Minutes (timed/untimed): 60 Maurice Pope PT [facility] 01-23-2023 History of Presen t illness Narrative Episode Visit Count: 10 Therapist That Will Accept/Oversee The Plan Of Care: Maurice Pope Start of Care Date: 01/02/23 Onset Date: 11/04/22 Plan of Care Certification Date: 12/16/22 Patient Identified by Name and Date of : Yes REHABILITATION AND SPORTS THERAPY PHYSICAL THERAPY TREATMENT NOTE ASSESSMENT: Terry Smith tolerated the session with fatigue, expected muscle soreness, and no issues. He demonstrated improvements in ROM and gait intermittently. The patient will continue to benefit from ongoing skilled physical therapy to progress toward set goals and to continue with post-operative protocol. PLAN FOR NEXT VISIT: Continue with progression of NEGRETE protocol. Continue to review proper gait with and without walking stick to help pt overcome fear. Consider use of treadmill to normalize gait. SUBJECTIVE: Patient Reason for Visit: Pt reports that he is very committed to normalizing his gait and therefore he brought a walking stick to therapy today. He is open to any and all suggestions. He acknowledges that fear is a subconscious mental block to normalizing his gait and that he worries unnecessarily at times. He reports mild pain in R knee to start today, but that his HS pain is much less and improving. He reports developing concern since last session that his R knee is unstable. He denies an injury or incident that has caused him to doubt the stability, he just does. Pain: Pain Pain Level: (1-2/10) Pain Location: Knee - Right Description: (mild) Frequency: Intermittent Post Treatment Pain Post Treatment Pain Level: No Change Post Treatment Pain Location: Knee - Right Post Treatment Symptoms: He reported expected muscle fatigue but he denied any increase in pain after therex. OBJECTIVE MEASURES WITH LEVEL OF FUNCTION: Knee Observations R Knee Presents with: Ecchymosis R Ecchymosis : progressive improvement LE AROM R LE AROM: supine R Knee Extension: 0 Degrees R Knee Flexion: 135 Degrees LE Strength R Knee Extension Functional Strength (L3): no quad lag Special Tests - Knee Knee Special Tests: Gian Gian: Right Negative, Left Negative Gait Gait Observation: gait continues to be inconsistent. At times, gait is normal but at times, without explanation, his R knee does not achieve TKE at heel strike and does not flex knee during swing phase. Also, his L step length is short and asymmetrical at times. TREATMENT: [facility]: ACL ACL Phase: Phase 2: Early Rehabilitation Phase Therapeutic Exercise: 1: Upright bike seat #7 level #3 x6 minutes. (Protocol, realistic expectations and his current stage of recovery discussed in detail.) 2: prone hang without weight x3 minutes reviewed but is not necessary secondary to improved ROM and gait. 3: prone TKE quad sets with toes on plinth 2x10 4: supine quad sets with 2 second holds 2x10 to activate quads and facilitate knee extension. 5: supine heel slides 2x10 6: standing TKE with pink t-band 3x10 in front of mirror with emphasis on TKE compared to uninvolved. 7: 4-way R SLR 2x10 each with 1.5# for all 8: R forward step ups on 6 inch step in bars 2x10 9: R lateral step up on 6 inch step 2x10 Skilled Intervention: Patient was educated in proper exercise technique and purpose for exercises. Skilled judgment was provided in selection of appropriate interventions. Correct performance of therapeutic exercises was facilitated with verbal and visual cuing. Patient education as noted. Gait Trainin: Gait deviations observed were explained and proper correction explained. Pt practiced while therapist provided verbal cues and mirror used for feedback. More free movement of R knee in swing phase emphasized. His walking stick height was adjusted and proper use reviewed and demonstrated. Skilled Intervention: Facilitated proper gait cycle with the use of verbal and visual cues for correction of gait deviations identified in the objective section above. Skilled judgment used to assess selection, proper sizing, and proper use of assistive device. Assistive device is not needed but his gait is more normal with the walking stick because is increases his confidence. Billing Therapeutic Exercise Treatment Minutes: 40 Gait Training Treatment Minutes: 20 Total Treatment Time Minutes (timed/untimed): 60 Maurice Pope PT documented in this encounter [facility] 01-19-2023 Note HNO ID: [id number] Author: Maurice Pope PT Service: ? Author Type: Physical Therapist Type: Progress Notes Filed: 01/19/2023 3:00 PM Note Text: Episode Visit Count: 9 Therapist That Will Accept/Oversee The Plan Of Care: Maurice Pope Start of Care Date: 01/02/23 Onset Date: 11/04/22 Plan of Care Certification Date: 12/16/22 Patient Identified by Name and Date of : Yes REHABILITATION AND SPORTS THERAPY PHYSICAL THERAPY TREATMENT NOTE ASSESSMENT: Terry Tin Smith tolerated the session with no issues. He demonstrated difficulty with gait and improvements in exercise tolerance and ROM. The patient will continue to benefit from ongoing skilled physical therapy to progress toward set goals and to continue with post-operative protocol. PLAN FOR NEXT VISIT: Continue with progression of NEGRETE protocol. Continue to review proper gait to help pt overcome fear. SUBJECTIVE: Patient Reason for Visit: Pt reports that overall he is still doing very well but the evening after last session he had the most pain he has had since surgery. He denies any pain during last session but later that evening pain increased significantly without explanation. He reported this to referring providers office and made them aware. Currrently pain is less but still present. He reports compliance with HEP 2x day and rides stationary bike 1x day on weight trainer frame. Pain: Pain Pain Level: (1-10) Pain Location: Knee - Right Description: Sharp Frequency: Intermittent, Walking Post Treatment Pain Post Treatment Pain Level: No Change Post Treatment Pain Location: Knee - Right OBJECTIVE MEASURES WITH LEVEL OF FUNCTION: Knee Observations R Knee Presents with: Erythema, Ecchymosis (area of suture abcess is improving) R Ecchymosis : continued LE AROM R LE AROM: supine R Knee Extension: -2 Degrees R Knee Flexion: 133 Degrees Gait Gait Observation: quality of gait varies. At times, nearly normal and other times, very rigid R knee in swing phase. TREATMENT: Carepath: ACL ACL Phase: Phase 2: Early Rehabilitation Phase Therapeutic Exercise: 1: Upright bike seat #8 level #3 x6 minutes. (Protocol, realistic expectations and his current stage of recovery discussed in detail.) 2: prone hang without weight x3 minutes reviewed but is not necessary secondary to improved ROM and gait. 3: prone TKE quad sets with toes on plinth 2x10 4: supine quad sets with 2 second holds 2x10 to activate quads and facilitate knee extension. 5: supine heel slides 2x10 6: standing TKE with pink t-band 3x10 in front of mirror with emphasis on TKE compared to uninvolved. 7: 4-way R SLR 2x10 each 8: supine gravity stretch for R knee extension with foam roll under ankle with 3# weight on front of knee x3 minutes 9: supine R knee flexion stretch with therapist's arm behind distal R thigh and in front of distal L thight x3 minutes Skilled Intervention: Patient was educated in proper exercise technique and purpose for exercises. Skilled judgment was provided in selection of appropriate interventions. Correct performance of therapeutic exercises was facilitated with verbal, visual, and tactile cuing. Patient education as noted. Gait Trainin: Gait deviations observed were explained and proper correction explained. Pt practiced while therapist provided verbal cues and mirror used for feedback. More free movement of R knee in swing phase emphasized. Skilled Intervention: Facilitated proper gait cycle with the use of verbal and visual cues for correction of gait deviations identified in the objective section above. Billing Therapeutic Exercise Treatment Minutes: 40 Gait Training Treatment Minutes: 5 Total Treatment Time Minutes (timed/untimed): 45 Maurice Pope PT [facility] 01-19-2023 History of Presen t illness Narrative Episode Visit Count: 9 Therapist That Will Accept/Oversee The Plan Of Care: Maurice Pope Start of Care Date: 01/02/23 Onset Date: 11/04/22 Plan of Care Certification Date: 12/16/22 Patient Identified by Name and Date of : Yes REHABILITATION AND SPORTS THERAPY PHYSICAL THERAPY TREATMENT NOTE ASSESSMENT: Terry Smith tolerated the session with no issues. He demonstrated difficulty with gait and improvements in exercise tolerance and ROM. The patient will continue to benefit from ongoing skilled physical therapy to progress toward set goals and to continue with post-operative protocol. PLAN FOR NEXT VISIT: Continue with progression of NEGRETE protocol. Continue to review proper gait to help pt overcome fear. SUBJECTIVE: Patient Reason for Visit: Pt reports that overall he is still doing very well but the evening after last session he had the most pain he has had since surgery. He denies any pain during last session but later that evening pain increased significantly without explanation. He reported this to referring providers office and made them aware. Currrently pain is less but still present. He reports compliance with HEP 2x day and rides stationary bike 1x day on weight trainer frame. Pain: Pain Pain Level: (1-2/10) Pain Location: Knee - Right Description: Sharp Frequency: Intermittent, Walking Post Treatment Pain Post Treatment Pain Level: No Change Post Treatment Pain Location: Knee - Right OBJECTIVE MEASURES WITH LEVEL OF FUNCTION: Knee Observations R Knee Presents with: Erythema, Ecchymosis (area of suture abcess is improving) R Ecchymosis : continued LE AROM R LE AROM: supine R Knee Extension: -2 Degrees R Knee Flexion: 133 Degrees Gait Gait Observation: quality of gait varies. At times, nearly normal and other times, very rigid R knee in swing phase. TREATMENT: Carepath: ACL ACL Phase: Phase 2: Early Rehabilitation Phase Therapeutic Exercise: 1: Upright bike seat #8 level #3 x6 minutes. (Protocol, realistic expectations and his current stage of recovery discussed in detail.) 2: prone hang without weight x3 minutes reviewed but is not necessary secondary to improved ROM and gait. 3: prone TKE quad sets with toes on plinth 2x10 4: supine quad sets with 2 second holds 2x10 to activate quads and facilitate knee extension. 5: supine heel slides 2x10 6: standing TKE with pink t-band 3x10 in front of mirror with emphasis on TKE compared to uninvolved. 7: 4-way R SLR 2x10 each 8: supine gravity stretch for R knee extension with foam roll under ankle with 3# weight on front of knee x3 minutes 9: supine R knee flexion stretch with therapist's arm behind distal R thigh and in front of distal L thight x3 minutes Skilled Intervention: Patient was educated in proper exercise technique and purpose for exercises. Skilled judgment was provided in selection of appropriate interventions. Correct performance of therapeutic exercises was facilitated with verbal, visual, and tactile cuing. Patient education as noted. Gait Trainin: Gait deviations observed were explained and proper correction explained. Pt practiced while therapist provided verbal cues and mirror used for feedback. More free movement of R knee in swing phase emphasized. Skilled Intervention: Facilitated proper gait cycle with the use of verbal and visual cues for correction of gait deviations identified in the objective section above. Billing Therapeutic Exercise Treatment Minutes: 40 Gait Training Treatment Minutes: 5 Total Treatment Time Minutes (timed/untimed): 45 Maurice Pope PT documented in this encounter [facility] 01-18-2023 Miscellaneous Notes Patient underwent right ACL reconstruction with hamstring autograft with Dr. Reed on 12/29/22. Patient felt he was experiencing sings of infection on 01/14/23. Patient sent pictures via [facility] that were reviewed by Dr. Reed and determined to be a suture abscess. Local wound care was recommended. The patient also reported right hamstring pain and he was told this is expected postoperatively and provided with reassurance. PA contacts patient to check on status. Patient reports slow improvement of his suture abscess. He reports less drainage, redness, and pressure. He reports attempting to express contents daily, daily cleaning and applying topical antibiotic ointment. He denies fevers. He also reports continued hamstring pain. Patient instructed to continue to monitor site for worsening signs of infection. He may clean daily but is told to discontinue the use of topical antibiotic ointment. The patient is provided with reassurance regarding his hamstring pain. documented in this encounter [facility] 01-17-2023 Note HNO ID: [id number] Author: Maurice Pope PT Service: ? Author Type: Physical Therapist Type: Progress Notes Filed: 01/17/2023 4:10 PM Note Text: Episode Visit Count: 8 Therapist That Will Accept/Oversee The Plan Of Care: Maurice Pope Start of Care Date: 01/02/23 Onset Date: 11/04/22 Plan of Care Certification Date: 12/16/22 Patient Identified by Name and Date of : Yes REHABILITATION AND SPORTS THERAPY PHYSICAL THERAPY TREATMENT NOTE ASSESSMENT: Terry Tin Luis tolerated the session with fatigue, expected muscle soreness, and no issues. He demonstrated improvements in ROM, gait, strength and function without pain. The patient will continue to benefit from ongoing skilled physical therapy to progress toward set goals and to continue with post-operative protocol. PLAN FOR NEXT VISIT: Continue NEGRETE protocol and advance to phase 2 SUBJECTIVE: Patient Reason for Visit: Pt reports that overall he is doing well and getting progressively better. He feels that he is doing well for his level of post-op status. He does report a progressive worsening of redness around medial joint line incision. He reached out to referring provider's office and sought guidance. He reports that initially he received an order for antibiotics but before he could fill the prescription, that recommendation was changed and antibiotics canceled. Pt reports being told that this is an abcess and not to worry. He was advised to express the drainage and he did this. He reports that this fluid is mostly clear to very slightly yellow. He has been keeping it coverage with standard bandaid. He has stayed in contact with his referring provider's office and abcess is resolving slowly. He reports consistent compliance with HEP and gait correction. He reports that looking up has helped considerably. Pt denies a fever. Pain: Pain Pain Level: 0 Pain Location: Knee - Right Description: (no pain to start) Frequency: Intermittent Post Treatment Pain Post Treatment Pain Level: 0 Post Treatment Pain Location: Knee - Right Post Treatment Symptoms: After session pt denied any change in knee pain, still 0/10 OBJECTIVE MEASURES WITH LEVEL OF FUNCTION: Knee Observations R Knee Presents with: Erythema, Ecchymosis (red area around medical join line incision is greater than last week and the size of a quarter.) R Ecchymosis : R lower leg in varying stages of healing LE AROM R LE AROM: supine R Knee Extension: 0 Degrees R Knee Flexion: 131 Degrees LE Strength R Knee Extension Functional Strength (L3): 20 SLR without quad lag Gait Gait Observation: Noticeable improvement since last session with improved TKE and fluidity of gait after verbal cues. Keeping head up with gaze forward has helped. Not normal but markedly better. TREATMENT: Carepath: ACL ACL Phase: Phase 2: Early Rehabilitation Phase Therapeutic Exercise: 1: Upright bike seat #7 level #3 x6 minutes. (Ptotocol, realistic expectations and his current stage of recovery discussed in detail.) 2: prone hang without weight x3 minutes reviewed but is not necessary secondary to improved ROM and gait. 3: prone TKE quad sets with toes on plinth 2x10 4: supine quad sets with 2 second holds 2x10 to activate quads and facilitate knee extension. 5: supine heel slides 2x10 with green strap 6: standing TKE with pink t-band 3x10 in front of mirror with emphasis on TKE compared to uninvolved. 7: R forward step ups on 4 inch step 2x10 8: supine gravity stretch for R knee extension with foam roll under ankle with 3# weight on front of knee x3 minutes 9: supine R knee flexion stretch with therapist's arm behind distal R thigh and in front of distal L thight x3 minutes Skilled Intervention: Patient was educated in proper exercise technique and purpose for exercises. Skilled judgment was provided in selection of appropriate interventions. Correct performance of therapeutic exercises was facilitated with verbal, visual, and tactile cuing. Patient education as noted. Gait Trainin: Gait correction reviewed and encouraged. Mirror and verbal cues used to facilitate normalized gait. TKE cues continued and he was encouraged to lead swing phase with knee instead of toe to encourage knee flexion during swing. Skilled Intervention: Facilitated proper gait cycle with the use of verbal and visual cues for correction of gait deviations identified in the objective section above. Billing Therapeutic Exercise Treatment Minutes: 30 Gait Training Treatment Minutes: 10 Total Treatment Time Minutes (timed/untimed): 40 Maurice Pope, PT [facility] 01-17-2023 Miscellaneous Notes Left message on patient voice mail. Stating check on how he is doing r/t the stitch reaction and hamstring pain. Requested a call back to the office. documented in this encounter [facility] 01-14-2023 Miscellaneous Notes Patient Name: Terry Smith, 37 year old, male Patient Patient called on January 14, 2023 regarding incisional redness Patient had R ACL surgery on 12/29/22 Subjective: - Patient reports one day of incisional redness (picture uploaded) - Based on photo appears to be medial portal site - Reports very mild pain in that area - Denies pain elsewhere - Denies any significant pain with ranging knee - Denies fevers, chills, sweats - Denies any drainage Assessment/Plan: - Patient states that he would prefer to not go to ED tonight - Given over benign symptoms, will order Keflex course - Given strict precautions to present to ED/urgent care if his symptoms worsen at all tomorrow - Will contact Dr. Reed's office Concerns addressed, questions answered appropriately. Patient in agreement with plan and verbalized understanding. Sharan Oliver MD PGY2 Resident Orthopaedic Surgery Please page [phone]) from 5p-6a and on weekends for any issues. documented in this encounter [facility] 01-14-2023 Miscellaneous Notes Patient calling regarding Increasing Redness around suture site. Conferenced to [address] glue drier operator, Nupur, to speak with provider recreation facility manager for Dr. Reed. If you have any questions, you can call Nurse business information consultant back at anytime OR speak to your provider's office when they open in the morning. . documented in this encounter [facility] 01-13-2023 Note HNO ID: [id number] Author: Maurice Pope PT Service: ? Author Type: Physical Therapist Type: Progress Notes Filed: 01/13/2023 3:08 PM Note Text: Episode Visit Count: 7 Therapist That Will Accept/Oversee The Plan Of Care: Maurice Pope Start of Care Date: 01/02/23 Onset Date: 11/04/22 Plan of Care Certification Date: 12/16/22 Patient Identified by Name and Date of : Yes REHABILITATION AND SPORTS THERAPY PHYSICAL THERAPY TREATMENT NOTE ASSESSMENT: Terry Smith tolerated the session with fatigue and no issues. He demonstrated difficulty with ROM, gait and intermittent pain and improvements in understanding of expectations. The patient will continue to benefit from ongoing skilled physical therapy to progress toward set goals and to continue with post-operative protocol. PLAN FOR NEXT VISIT: Monitor ROM, pain, gait and quad activation. Progress NEGRETE as appropriate and continue gait training. SUBJECTIVE: Patient Reason for Visit: Pt reports that overall he is doing well and noticeably better the past two days. He reports unexplained increase in pain the morning of 01/11/23. He reports that after a couple of hours this increased pain eased on its own and has not returned. He reports compliance with HEP and he denies any pain to start today. Pain: Pain Pain Level: 0 Pain Location: Knee - Right Frequency: Intermittent Post Treatment Pain Post Treatment Pain Level: No Change Post Treatment Pain Location: Knee - Right OBJECTIVE MEASURES WITH LEVEL OF FUNCTION: LE AROM R LE AROM: supine R Knee Extension: -3 Degrees R Knee Flexion: 127 Degrees LE Strength R Knee Extension Functional Strength (L3): quad activation is improved but still not full yet Gait Gait Observation: Pt continues to lack TKE despite lots of cues and training. He is not using a device despite recommendation last visit. He does report having hiking poles that he uses at times. TREATMENT: Carepath: ACL ACL Phase: Phase 1: Initial post op Therapeutic Exercise: 1: Upright bike seat #9 level #3 x6 minutes. (Ptotocol, realistic expectations and his current stage of recovery discussed in detail.) 2: prone hang without weight x3 minutes 3: prone TKE quad sets with toes on plinth 3x10 4: supine quad sets with 2 second holds 2x10 to activate quads and facilitate knee extension. 5: supine heel slides 2x10 6: standing TKE with pink t-band 3x10 in front of mirror with emphasis on TKE compared to uninvolved. Skilled Intervention: Patient was educated in proper exercise technique and purpose for exercises. Skilled judgment was provided in selection of appropriate interventions. Correct performance of therapeutic exercises was facilitated with verbal, visual, and tactile cuing. Patient education as noted. Gait Trainin: Significant time spent explaining gait deviations with pt, especially lack of TKE. He was shown his pattern by demonstration and mirror used to provide feedback. He practiced repeatedly and therapist provided cues. A root cause was investigated. Skilled Intervention: Facilitated proper gait cycle with the use of verbal and visual cues for correction of gait deviations identified in the objective section above. [facility] Management: 1: Pt concerns about redness around one incision were visually inspected but does not show any signs of infection. He was advised to monitor and document changes with photo to share with referring provider prn. He was advised to use his pain as a guide for all activities but that a transient increase in pain of 3 points or less is not a concern but extended periods of pain is. 2: He as advised to reach out to PCP with any of his questions or concerns in the future. Skilled Intervention: Reviewed patient specific diagnosis in relation to activities of daily living/home management. Billing Therapeutic Exercise Treatment Minutes: 25 Self-Care/Home Management Treatment Minutes: 5 Gait Training Treatment Minutes: 20 Total Treatment Time Minutes (timed/untimed): 50 Maurice Pope PT [facility] 01-10-2023 Note HNO ID: [id number] Author: Maurice Pope PT Service: ? Author Type: Physical Therapist Type: Progress Notes Filed: 01/10/2023 6:44 PM Note Text: Episode Visit Count: 6 Therapist That Will Accept/Oversee The Plan Of Care: Maurice Pope Start of Care Date: 01/02/23 Onset Date: 11/04/22 Plan of Care Certification Date: 12/16/22 Patient Identified by Name and Date of : Yes REHABILITATION AND SPORTS THERAPY PHYSICAL THERAPY TREATMENT NOTE ASSESSMENT: Terry Smith tolerated the session with fatigue, expected muscle soreness, and no issues. He demonstrated improvements in ROM, exercise tolerance and gait after lots of repetition and cane trial. The patient will continue to benefit from ongoing skilled physical therapy to progress toward set goals and to continue with post-operative protocol. PLAN FOR NEXT VISIT: Review gait correction. Continue NEGRETE protocol with emphasis on achieving full knee extension and begin working conservatively on strength and quad activation. SUBJECTIVE: Patient Reason for Visit: Pt reports that overall he is doing well and making progress overall but that his progress is slower and more week to week instead of daily like it was initially. He reports compliance with HEP and that he is diligently working on ROM and quality of gait. He also admits that he has been cautious and at times, too cautious. Pain: Pain Pain Level: 0 Pain Location: Knee - Right Description: (no pain to start) Frequency: Intermittent Post Treatment Pain Post Treatment Pain Level: No Change Post Treatment Pain Location: Knee - Right OBJECTIVE MEASURES WITH LEVEL OF FUNCTION: LE AROM R LE AROM: supine R Knee Extension: 0 Degrees R Knee Flexion: 129 Degrees Gait Gait Observation: Pt lacks TKE during gait despite full ROM in supine and therefore he lacks heel strike. Push off is also diminshed with decreased step lengths and very slow gait pattern in general. TREATMENT: Carepath: ACL ACL Phase: Phase 1: Initial post op Therapeutic Exercise: 1: Upright bike seat #9 level #3 x6 minutes. 2: supine propping with towel roll under R ankle x3 minutes to facilitate R knee extension ROM, 3: supine quad sets with 2 second holds 2x10 to activate quads and facilitate knee extension. 4: supine R heel slides to facilitate R knee flexion 2x10 5: supine R SLR 2x10 with emphasis on trying to avoid quad lag. 6: The importance of quad activation was emphasized during SLR Skilled Intervention: Patient was educated in proper exercise technique and purpose for exercises. Skilled judgment was provided in selection of appropriate interventions. Correct performance of therapeutic exercises was facilitated with verbal, visual, and tactile cuing. Patient education as noted. Gait Trainin: Gait training done in front of mirror for visual cues and with lots of verbal cues and demonstration from therapist. Findings listed in gait observations addressed. Cane was trialed and was very successful due to improved confidence. Skilled Intervention: Facilitated proper gait cycle with the use of verbal and visual cues for correction of gait deviations identified in the objective section above. Skilled judgment used to assess selection, proper sizing, and proper use of assistive device. Billing Therapeutic Exercise Treatment Minutes: 25 Gait Training Treatment Minutes: 20 Total Treatment Time Minutes (timed/untimed): 45 Maurice Pope PT [facility] 01-04-2023 Note HNO ID: [id number] Author: Maurice Pope PT Service: ? Author Type: Physical Therapist Type: Progress Notes Filed: 01/04/2023 8:44 PM Note Text: Episode Visit Count: 5 Therapist That Will Accept/Oversee The Plan Of Care: Maurice Pope Start of Care Date: 01/02/23 Onset Date: 11/04/22 Plan of Care Certification Date: 12/16/22 Patient Identified by Name and Date of : Yes REHABILITATION AND SPORTS THERAPY PHYSICAL THERAPY TREATMENT NOTE ASSESSMENT: Terry Smith tolerated the session with decreased symptoms. He demonstrated improvements in gait, ROM and exercise tolerance. The patient will continue to benefit from ongoing skilled physical therapy to progress toward set goals and to continue with post-operative protocol. PLAN FOR NEXT VISIT: Continue NEGRETE protocol with emphasis on achieving full knee extension and begin working conservatively on strength and quad activation. SUBJECTIVE: Patient Reason for Visit: Pt reports that overall he is still doing very well but that he did too much yesterday. As a result of pushing too hard with HEP, he developed increased pain last night an early this morning. The increased pain that he woke up with was fully resolved with tylenol and HEP completion. He reports that he is still getting negative feedback that is causing him to limp. He rpeorts that yesterday before his aggravated his symptoms, his gait was fully normalized. He reports having his follow up with referring provider's office earlier today and that provider was very satisfied with his progress overall. Pt reports that he stopped using crutches several hours after PT evaluation on 01/02/23. Pain: Pain Pain Level: 2 Pain Location: Knee - Right Description: ( negative feedback ) Frequency: Intermittent Post Treatment Pain Post Treatment Pain Level: 0 Post Treatment Pain Location: Knee - Right Post Treatment Pain Description: (Better) OBJECTIVE MEASURES WITH LEVEL OF FUNCTION: LE AROM R LE AROM: supine R Knee Extension: -2 Degrees R Knee Flexion: 120 Degrees Gait Gait Observation: R knee is very rigid throughout gait cycle today and especially during swing phase on R. His heel strike and push off are both diminished and he never achieves his full available amount of knee extension. TREATMENT: Carepath: ACL ACL Phase: Phase 1: Initial post op Therapeutic Exercise: 1: [employer] StepOne seat #12 x6 minutes (pt provided an update on his condition, plan of care reviewed and protocol reviewed with emphasis on proper intensity.) 2: *supine propping with towel roll under R ankle x3 minutes to facilitate R knee extension ROM, 3: *supine quad sets with 2 second holds 2x10 to activate quads and facilitate knee extension. No propping of ankle during this exercise at this time. 4: *supine R heel slides to facilitate R knee flexion 2x10 5: *supine R SLR 2x10 with emphasis on trying to avoid quad lag. 6: HEP was thoroughly reviewed and proper intensity emphasized. 7: He verbalized understanding of all instructions and acknowledged that he pushed too hard yesterday despite therapist's recommendations. Skilled Intervention: Patient was educated in proper exercise technique and purpose for exercises. Skilled judgment was provided in selection of appropriate interventions. Correct performance of therapeutic exercises was facilitated with verbal and visual cuing. Patient education as noted. Gait Trainin: Gait training done without crutches with use of mirror for visual feedback in several angles. He was encouraged to work on achieving terminal knee extension on R with improved heel to toe pattern. Skilled Intervention: Facilitated proper gait cycle with the use of verbal and visual cues for correction of gait deviations identified in the objective section above. Skilled judgment used to assess selection of assistive device. Billing Therapeutic Exercise Treatment Minutes: 25 Gait Training Treatment Minutes: 15 Total Treatment Time Minutes (timed/untimed): 40 Maurice Pope PT [facility] 01-04-2023 Note HNO ID: [id number] Author: Dian Alba PA-C Service: ? Author Type: Physician Design Consultant Type: Progress Notes Filed: 01/04/2023 12:20 PM Note Text: DATE OF PROCEDURE: December 29, 2022 OPERATION: 1. Right knee arthroscopically-assisted anterior cruciate ligament reconstruction with quintuple stranded hamstring autograft 2. Diagnostic arthroscopy. 3. Examination under anesthesia. 4. Right knee partial lateral meniscectomy Interval history: Terry Smith returns today status post right knee surgery. The patient reports doing well. He has begun physical therapy. The patient denies fever, chills, chest pain, shortness of breath, and calf pain. Review of Systems: CV: No chest pain Pulm: No short of breath HEENT: No head ache General: no fevers, chills, nausea/vomiting, malaise Physical Examination: This is a well appearing, well nourished patient in no acute distress. Head is normocephalic and atraumatic. White sclera and pink conjunctiva. Mucous membranes are moist. Breathes easily and has normal chest wall excursion. Affect is normal. Right knee: There is a mild effusion present. The patient is able to perform a straight leg raise. Active range of motion 2-110 degrees. Negative Gian's. Incision sites are well approximated without clinical signs of infection. Bilateral calves are soft and nontender to palpation. Negative Homans' sign. Imaging: Plain films from [facility] are personally reviewed by me and demonstrate expected postoperative findings. Impression: Terry Smith is a 37 year old male, who is 6 days status post right ACL reconstruction and lateral meniscectomy. There is no concern for postop infection or DVT. Plan: 1. The patient's steri strips are changed today. Postoperative incision care was reviewed. 2. Continue to utilize oral NSAIDs as needed. 3. The patient is encouraged to continue physical therapy. 4. The patient will follow up with Dr. Reed approximately 1 month following surgery. Radiographs will not be required for this appointment. Dian Alba PA-C I spent a total of 30 minutes on the date of the service which included preparing to see the patient, [id number] patient care, and completing clinical documentation. [facility] 01-04-2023 Note HNO ID: [id number] Author: RT Brittney(R) Service: ? Author Type: Technologist Type: Progress Notes Filed: 01/04/2023 10:06 AM Note Text: Radiology Service Progress Note PATIENT NAME: Terry Smith DATE OF SERVICE: January 04, 2023 TIME: 10:05 AM PATIENT IDENTITY VERIFICATION COMPLETED USING TWO (2) IDENTIFIERS: Name and Date of confirmed by patient verbally. FALL SCREENING: Has the patient had 2 falls in the last year or 1 fall with injury or currently using an Ambulatory Assistive Device (Walker, Cane, Wheelchair, Crutches, etc.)? No PATIENT GENDER DATA: Male PATIENT RELEVANT IMPLANT DATA REVIEWED: Not Applicable RADIOLOGY DEPARTMENT: General X-ray: Exam(s) Completed: Lower Extremity X-Ray(s): Knee, AP / LAT Right PERIPHERAL IV DATA: Not applicable SIGNED BY: RT Brittney(R) January 04, 2023 10:05 AM [facility] 01-04-2023 Instructions Dian Alba PA-C - 01/04/2023 11:47 AM EDT Thank you for seeing us today in the Orthopaedics Department. Please set up your follow up appointments as directed before leaving today. You should follow-up with Dr. Reed 4 weeks following surgery. You should follow-up with physical therapy as instructed. Appointment Line : [phone] Physical Therapy: [phone] Radiology: [phone] Incision: Your Steri Strips may remain in place until they fall off. Do not pick them off. Do not apply lotions or ointments to your incision site. You may allow your incision to get wet in the shower. Soap and water may run over the incision: DO NOT SCRUB THE INCISION. You should not soak you incision until you are 4 weeks removed from surgery. This would include baths, swimming pools, hot tubs, lakes, or the ocean. Please contact the office for any redness surrounding your incision, excessive drainage from your incision, or separation of your wound edges Activity: Continue to perform your home exercise program. Your exercises will be advanced by physical therapy. General Instructions: You may continue to utilize ice to control pain and swelling. Do not apply ice to an open wound or healing skin or to any area with decreased sensation. If your skin is sensitive to the cold you may put a thin cloth barrier between your skin and the ice bag. PLEASE ICE FOR 20-30 MINUTES, 2-3 TIMES PER DAY. If you have continued swelling, also be sure to ELEVATE YOUR LEG ABOVE THE LEVEL OF YOUR HEART while icing. Medication: If you no longer require your narcotic pain medication, do not take it. You may continue to use anti-inflammatory medications. These are also called NSAIDs. Common names include Ibuprofen, Motrin, Advil, Aleve, Naproxen Sodium. If you have an allergy to NSAIDS, kidney disease or a stomach ulcer do NOT take NSAIDs. Common dosages include: 1.Ibuprofen (Advil, Motrin) 400 mg may be taken every 6-8 hours, as needed for pain. These should be taken with food. 2.Naproxen Sodium (Aleve) 220mg may be taken every 12 hours, as needed for pain. These should also be taken with food. DO NOT TAKE BOTH IBUPROFEN AND NAPROXEN AT THE SAME TIME. If you are currently on a blood thinning medication like coumadin, warfarin, eliquis, pradaxa, lovenox, etc do NOT take NSAIDS as this may increase your bleeding risk. You may be eligible to use a topical nsaid which can be found at your local drug store but we advise you first check with your pet trainer, primary care, or vascular provider before doing so. If you cannot take a NSAID, you may take Acetaminophen (as called Tylenol) 500 to 1,000mg every 8 hours as needed for pain. Do not take more than 3,000mg of Acetaminophen in a 24 hour period. Please use caution when taking other medications that may also contain Acetaminophen (Excedrin, Vicodin, Percocet for example) as these contribute to the maximum daily dose of Acetaminophen. If you have an allergy to Acetaminophen (Tylenol) or have liver disease do NOT take Acetaminophen. documented in this encounter [facility] 01-04-2023 History of Presen t illness Narrative DATE OF PROCEDURE: December 29, 2022 OPERATION: 1. Right knee arthroscopically-assisted anterior cruciate ligament reconstruction with quintuple stranded hamstring autograft 2. Diagnostic arthroscopy. 3. Examination under anesthesia. 4. Right knee partial lateral meniscectomy Interval history: Terry Smith returns today status post right knee surgery. The patient reports doing well. He has begun physical therapy. The patient denies fever, chills, chest pain, shortness of breath, and calf pain. Review of Systems: CV: No chest pain Pulm: No short of breath HEENT: No head ache General: no fevers, chills, nausea/vomiting, malaise Physical Examination: This is a well appearing, well nourished patient in no acute distress. Head is normocephalic and atraumatic. White sclera and pink conjunctiva. Mucous membranes are moist. Breathes easily and has normal chest wall excursion. Affect is normal. Right knee: There is a mild effusion present. The patient is able to perform a straight leg raise. Active range of motion 2-110 degrees. Negative Gian's. Incision sites are well approximated without clinical signs of infection. Bilateral calves are soft and nontender to palpation. Negative Homans' sign. Imaging: Plain films from [facility] are personally reviewed by me and demonstrate expected postoperative findings. Impression: Terry Smith is a 37 year old male, who is 6 days status post right ACL reconstruction and lateral meniscectomy. There is no concern for postop infection or DVT. Plan: 1. The patient's steri strips are changed today. Postoperative incision care was reviewed. 2. Continue to utilize oral NSAIDs as needed. 3. The patient is encouraged to continue physical therapy. 4. The patient will follow up with Dr. Reed approximately 1 month following surgery. Radiographs will not be required for this appointment. Dian Alba PA-C I spent a total of 30 minutes on the date of the service which included preparing to see the patient, [id number] patient care, and completing clinical documentation. documented in this encounter [facility] 01-03-2023 Note HNO ID: [id number] Author: Maurice Pope PT Service: ? Author Type: Physical Therapist Type: Progress Notes Filed: 01/02/2023 11:23 PM Note Text: Episode Visit Count: 4 Therapist That Will Accept/Oversee The Plan Of Care: Maurice Pope Start of Care Date: 12/16/22 Onset Date: 11/04/22 Plan of Care Certification Date: 12/16/22 Patient Identified by Name and Date of : Yes REHABILITATION AND SPORTS THERAPY PHYSICAL THERAPY EVALUATION PLAN OF CARE: Assessment: Terry Smith presents with diagnosis of s/p R knee hamstring autograft ACL reconstruction that interferes with standing, rising from a chair, walking, stair negotiation, running, jumping. He presents with impairments in ADL's, balance, gait, independence in exercise, overall function, patient reported outcome measures, range of motion, soft tissue healing, strength, symptom management, and wound healing. PROMIS? (Patient-Reported Outcomes Measurement Information System) scores were reviewed and physical function domain and self efficacy domain identified as a rehabilitation concern. Prognosis for therapy is Excellent due to: current objective clinical presentation, good overall health status, acuteness of condition, positive past response to therapy, good support system/ coping skills, within-session changes. He will benefit from skilled therapy services to meet the goals established for this plan of care as noted below. Goals for Episode of Care: created on 12/16/22 through 04/24/23 Phase 1 to Phase 2 Criteria: Criterion for Progression: Complete 20 straight leg raises with no quadriceps lag. Range of motion Full active knee extension (within 3 degrees) Active Flexion to 110 degrees. Full quadriceps activation: full, without visual inhibition. Normalized Gait. Discontinuation of Crutch/Immobilizer devices. Phase 2 to Phase 3 Criteria: Criterion for Progression: Range of motion: full, equal to contralateral. Stairs: 10-12 steps, ascent/descent in a reciprocal pattern with (6-8 height). Double leg squat: 60-90 degree bend, equal weight bearing, proper mechanics. Demonstrates functional strength and control with performing daily activities. Phase 3 to Phase 4 Criteria: Criterion for Progression: Range of Motion: maintained full and equal to contralateral limb Strength symmetry testin% symmetry using any of the following methods: Dynamometer testing Motor control: 6 inch eccentric step-downs with heel tap, 20 reps, proper mechanics. Hopping in place: double leg and single leg, no pain, proper mechanics. Outcomes: IKDC greater than or equal to 7, ADL-RSI greater than or equal to 50-60 score. Phase 4 to Phase 5 Criteria: Criterion for Progression: Maximum vertical jump without pain or instability. 80% of contralateral on single hop tests. Normalized running. Y-balance - anterior reach: less than 4 cm asymmetry. Strength: 85% symmetry. IKDC Question (Global Rating of Knee Function) score of 8 or greater. Phase 5 to Return to Sport Criteria: Criterion for Progression: Strength: Greater than or equal to 90% symmetry. Hop testin% symmetry with proper mechanics. Pain free transition to activities and no functional complaints. Confidence when running, cutting, jumping at full speed. IKDC Question (Global Rating of Knee Function) of > 9. Patient Goals: regain prior functional status and play ultimate [employer] Planned Interventions, Frequency, and Duration: Current Frequency: 2x/week Duration: 16 weeks Total Number of Visits Planned: 32 Planned Treatment Interventions: Therapeutic exercise (53467), Neuromuscular re-education (27696), Therapeutic activities (91491), Self-penitentiary management (77923), Gait Training (68333), Patient/Family/Caregiver Education, Body Mechanics Training, General Conditioning PLAN FOR NEXT VISIT: Begin NEGRETE post op rehab protocol. Progress to tolerance with early focus on gaining full knee extension ROM and normal quad activation. Early focus to also be on normalizing gait and d/c of crutches. Patient demonstrates good understanding of plan of care and treatment. The above goals and plan of care were discussed and agreed upon by patient/family. SUBJECTIVE: Terry Smith is a 37 year old male seen today for post-op rehab following R ACL reconstruction with hamstring autograft. Pt also had lateral menisectomy. Pt reports using percocet for 2 days after surgery. He reports that when nerve block wore off, pain was severe. Percocet successfully managed his symptoms but now he is only taking naproxyn. He reports compliance with HEP but that his ROM and quad activation are still impaired. Patient Goals: regain prior functional status and play ultimate frisbee Functional Limitations: standing, rising from a chair, walking, stair negotiation, running, jumping Prior Level of Function: Independent without limitations Relevant History Employment: [employer] (more content not included)... [facility] 01-02-2023 History of Presen t illness Narrative Episode Visit Count: 4 Therapist That Will Accept/Oversee The Plan Of Care: Maurice Pope Start of Care Date: 12/16/22 Onset Date: 11/04/22 Plan of Care Certification Date: 12/16/22 Patient Identified by Name and Date of : Yes REHABILITATION AND SPORTS THERAPY PHYSICAL THERAPY EVALUATION PLAN OF CARE: Assessment: Terry Smith presents with diagnosis of s/p R knee hamstring autograft ACL reconstruction that interferes with standing, rising from a chair, walking, stair negotiation, running, jumping. He presents with impairments in ADL's, balance, gait, independence in exercise, overall function, patient reported outcome measures, range of motion, soft tissue healing, strength, symptom management, and wound healing. PROMIS (Patient-Reported Outcomes Measurement Information System) scores were reviewed and physical function domain and self efficacy domain identified as a rehabilitation concern. Prognosis for therapy is Excellent due to: current objective clinical presentation, good overall health status, acuteness of condition, positive past response to therapy, good support system/ coping skills, within-session changes. He will benefit from skilled therapy services to meet the goals established for this plan of care as noted below. Goals for Episode of Care: created on 12/16/22 through 04/24/23 Phase 1 to Phase 2 Criteria: Criterion for Progression: Complete 20 straight leg raises with no quadriceps lag. Range of motion Full active knee extension (within 3 degrees) Active Flexion to 110 degrees. Full quadriceps activation: full, without visual inhibition. Normalized Gait. Discontinuation of Crutch/Immobilizer devices. Phase 2 to Phase 3 Criteria: Criterion for Progression: Range of motion: full, equal to contralateral. Stairs: 10-12 steps, ascent/descent in a reciprocal pattern with (6-8 height). Double leg squat: 60-90 degree bend, equal weight bearing, proper mechanics. Demonstrates functional strength and control with performing daily activities. Phase 3 to Phase 4 Criteria: Criterion for Progression: Range of Motion: maintained full and equal to contralateral limb Strength symmetry testin% symmetry using any of the following methods: Dynamometer testing Motor control: 6 inch eccentric step-downs with heel tap, 20 reps, proper mechanics. Hopping in place: double leg and single leg, no pain, proper mechanics. Outcomes: IKDC greater than or equal to 7, ADL-RSI greater than or equal to 50-60 score. Phase 4 to Phase 5 Criteria: Criterion for Progression: Maximum vertical jump without pain or instability. 80% of contralateral on single hop tests. Normalized running. Y-balance - anterior reach: less than 4 cm asymmetry. Strength: 85% symmetry. IKDC Question (Global Rating of Knee Function) score of 8 or greater. Phase 5 to Return to Sport Criteria: Criterion for Progression: Strength: Greater than or equal to 90% symmetry. Hop testin% symmetry with proper mechanics. Pain free transition to activities and no functional complaints. Confidence when running, cutting, jumping at full speed. IKDC Question (Global Rating of Knee Function) of > 9. Patient Goals: regain prior functional status and play ultimate frisbee Planned Interventions, Frequency, and Duration: Current Frequency: 2x/week Duration: 16 weeks Total Number of Visits Planned: 32 Planned Treatment Interventions: Therapeutic exercise (53771), Neuromuscular re-education (74971), Therapeutic activities (53140), Self-penitentiary management (72140), Gait Training (97729), Patient/Family/Caregiver Education, Body Mechanics Training, General Conditioning PLAN FOR NEXT VISIT: Begin NEGRETE post op rehab protocol. Progress to tolerance with early focus on gaining full knee extension ROM and normal quad activation. Early focus to also be on normalizing gait and d/c of crutches. Patient demonstrates good understanding of plan of care and treatment. The above goals and plan of care were discussed and agreed upon by patient/family. SUBJECTIVE: Terry Smith is a 37 year old male seen today for post-op rehab following R ACL reconstruction with hamstring autograft. Pt also had lateral menisectomy. Pt reports using percocet for 2 days after surgery. He reports that when nerve block wore off, pain was severe. Percocet successfully managed his symptoms but now he is only taking naproxyn. He reports compliance with HEP but that his ROM and quad activation are still impaired. 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 Home Environment Patient Lives With: Spouse Assistance Available: PRN Home Type: Multi-Level with First Floor Set-Up Entry To Home: Stairs, Without Rail Number Of Stairs Into Home: 2 Equipment Owned: Crutch(es) Intake Information: Prescription present Previous Treatment: Surgery , Physical Therapy , Pain meds , NSAIDs Falls Interview: No positive findings with falls interview Pain: Pain Pain Level: (0/10 at rest and 3/10 with WBing) Pain Location: Knee - Right Description: Stabbing, Aching ( negative feedback ) Frequency: Intermittent Post Treatment Pain Post Treatment Pain Level: Better (1-2/10) Post Treatment Pain Location: Knee - Right Post Treatment Pain Description: (better) Post Treatment Symptoms: After session pt reported a decrease in pain PROMIS Scales Higher is Better 12/15/2022 Phys Func - Score 39 (moderate dysfunction) Phys Func - Percentile 14 % Self-Eff Symptom - Score 46 (Average) Self-Eff Symptom - Percentile 34 % T-scores: mean of general population = 50. 5 points is clinically meaningfully difference Percentiles provide an indication of how the patient's score ranks in relation to the general population. Higher percentile rankings indicate better function/quality of life. 50th percentile is the average of the general population and indicates half of respondents had a worse score. OBJECTIVE MEASURES WITH LEVEL OF FUNCTION: Knee Observations R Circumference 6 inches above mid-patella (inches): 16.5 inches R Circumference mid patella (inches): 15.25 inches R Circumference 6 inches below mid-patella (inches): 14.25 inches L Circumference 6 inches above mid-patella (inches): 18 inches L Circumference mid patella (inches): 14.5 inches L Circumference 6 inches below mid-patella (inches): 14 inches LE AROM R LE AROM: supine L LE AROM: supine R Knee Extension: -4 Degrees R Knee Flexion: 105 Degrees L Knee Extension: 4 Degrees L Knee Flexion: 154 Degrees LE Strength R LE Strength: MMT deferred secondary to post-op status but strengthening will definitely be necessary. R Knee Extension Functional Strength (L3): definite quad lag with SLR DVT Screening/Testing Screening/Testing: Homaearl Moy's Sign: Right Negative, Left Negative Gait Weight Bearing Status: WBAT Gait: Modified Independent Gait Device: Crutches Gait Observation: Pt's R knee does not go through full ROM during gait cycle. Heel strike and push off are decreased and step lengths are asymmetrical. Steps are short and very slow. Crutch height is incorrect and crutches are several inches too tall. Stairs: not tested and pt reports lack of confidence. Brace/Orthotics: No brace Education: Education Learning Preferences: Demonstration, Explanation, Performance, Printed Materials Barriers: None Learning/educational needs: Procedure / Surgery, Plan of Care, Home exercise program, Gait Training, Crutch Training Education Provided: Yes, see treatment interventions for education provided Education Provided To: Patient, Family (Pt's present throughout session) Education Mode/Type: Demonstration, Explanation/Discussion, Literature/Printed Materials, Performance Response to Education/Teach Back: States/Identifies, Return Demonstration, Requires Review/Additional Education TREATMENT: Carepath: ACL ACL Phase: Phase 1: Initial post op PT Treatment Interventions: Therapeutic Exercise, Gait Training Evaluation Therapeutic Exercise: 1: Rehab protocol reviewed with patient and his . He was urged to use pain as his guide at all times but that he must balance the intensity to that he makes progress without causing unnecessary pain and inflammation. All of pt's questions were answered. 2: *supine propping with towel roll under R ankle x3 minutes to facilitate R knee extension ROM, 3: *supine quad sets with 2 second holds 2x10 to activate quads and facilitate knee extension. No propping of ankle during this exercise at this time. 4: *supine R heel slides to facilitate R knee flexion 2x10 5: *supine R SAQ attempted but painful along joint line/patellar tendon and therefore this was stopped for now. 6: *supine R SLR 2x10 with emphasis on trying to avoid quad lag. Skilled Intervention: Patient was educated in proper exercise technique and purpose for exercises. Reviewed and educated patient on additions/changes for home exercise program as above (*). Skilled judgment was provided in selection of appropriate interventions. Correct performance of therapeutic exercises was facilitated with verbal, visual, and tactile cuing. Patient education as noted. Gait Trainin: Crutches were adjusted to proper height and pt was educated on the rationale for proper crutch height adjustment. Gait training done with crutches with verbal cues, demonstration and visual feedback from mirror. Heel to toe pattern, symmetrical step lengths and smooth ROM in R knee encouraged, especially during swing phase. Skilled Intervention: Facilitated proper gait cycle with the use of verbal and visual cues for correction of gait deviations identified in the objective section above. Skilled judgment used to assess selection, proper sizing, and proper use of assistive device. Billing * Re-Evaluation Complexity: 1 Unit Therapeutic Exercise Treatment Minutes: 15 Gait Training Treatment Minutes: 15 Total Treatment Time Minutes (timed/untimed): 50 Maurice Pope PT documented in this encounter [facility] 12-30-2022 Note HNO ID: [id number] Author: Dian Alba PA-C Service: ? Author Type: Physician Design Consultant Type: Progress Notes Filed: 12/30/2022 7:58 AM Note Text: The patient underwent a right ACL reconstruction and partial lateral meniscectomy with Dr. Reed on 12/29/22. Postoperative physical therapy orders placed. [facility] 12-30-2022 History of Presen t illness Narrative The patient underwent a right ACL reconstruction and partial lateral meniscectomy with Dr. Reed on 12/29/22. Postoperative physical therapy orders placed. documented in this encounter [facility] 12-29-2022 Note HNO ID: [id number] Author: Ariadna Cervantes MD Service: Anesthesiology Author Type: Anesthesiologist Type: Anesthesia Procedure Notes Filed: 12/29/2022 12:44 PM Note Text: ANESTHESIOLOGY PROCEDURE NOTE Airway General Information Procedure Start Time/Medication Administration: 12/29/2022 12:41 PM Patient location during procedure: OR Timeout Performed Pre-procedure: timeout performed Consent Obtained: Yes Patient identity confirmed: arm band Staffing Anesthesiologist: Ariadna Cervantes MD Performed by: anesthesiologist Indications and Patient Condition Indications for airway management: anesthesia Preoxygenated: yes anesthesia circuit Patient position: sniffing Method: asleep Final Airway Details Final airway type: supraglottic airway Number of attempts at approach: 1 Final Supraglottic Airway: i-gel Size 4 SIGNATURE: Ariadna Cervantes MD PATIENT NAME: Terry Smith DATE: December 29, 2022 TIME: 12:43 PM CSN: [id number] [facility] 12-29-2022 Note HNO ID: [id number] Author: Ariadna Cervantes MD Service: Anesthesiology Author Type: Anesthesiologist Type: Anesthesia Procedure Notes Filed: 12/29/2022 12:11 PM Note Text: ANESTHESIOLOGY PROCEDURE NOTE Peripheral Nerve Block General Information Procedure Start Time/Medication Administration: 12/29/2022 11:56 AM Procedure End time: 12/29/2022 12:02 PM Patient location during procedure: pre-op Timeout Performed Pre-procedure: timeout performed Consent Obtained: Yes Patient identity confirmed: arm band Reason for block: post-op pain management/at surgeon's request Staffing Anesthesiologist: Ariadna Cervantes MD Performed by: anesthesiologist Preparation Sterility Preparation: hand hygiene performed prior to procedure, sterile gloves, drapes, and procedure tray, surgical cap used, mask used, sterile drape used during line insertion, skin prep agent completely dried prior to procedure Site Prep: Chloraprep Pre-Procedure Neuro Exam Location: RLE Sensory: intact Motor: intact Procedure Details Patient Position: supine Monitoring: Pulse OX, EKG and NIBP Block Type Lower Extremity: IPACK Laterality: right Injection Technique: single-shot Ultrasound Guided: Yes Image in Chart: yes Local Infiltration: Yes Needle Needle Gauge: 21 G Needle Length: 83 mm Needle Localization: ultrasound Assessment Injection assessment: negative aspiration, no paresthesia on injection, incremental injection and local visualized surrounding nerve on ultrasound Post-Procedure Neuro Exam Expected Regional Anesthesia: Yes Medications Administered dexamethasone sodium phosphate injection (DECADRON) - peripheral nerve block 5 mg - 12/29/2022 11:56:00 AM ropivacaine (PF) 2 mg/mL (0.2 %) injection (NAROPIN) - peripheral nerve block 10 mL - 12/29/2022 11:56:00 AM ropivacaine (PF) 5 mg/mL (0.5 %) injection (NAROPIN) - peripheral nerve block 10 mL - 12/29/2022 11:56:00 AM SIGNATURE: Ariadna Cervantes MD PATIENT NAME: Terry Smith DATE: December 29, 2022 TIME: 12:10 PM CSN: [id number] [facility] 12-29-2022 Note HNO ID: [id number] Author: Ariadna Cervantes MD Service: Anesthesiology Author Type: Anesthesiologist Type: Anesthesia Procedure Notes Filed: 12/29/2022 12:10 PM Note Text: ANESTHESIOLOGY PROCEDURE NOTE Peripheral Nerve Block General Information Procedure Start Time/Medication Administration: 12/29/2022 11:49 AM Procedure End time: 12/29/2022 11:55 AM Patient location during procedure: pre-op Timeout Performed Pre-procedure: timeout performed Consent Obtained: Yes (via Surgical Consent) Patient identity confirmed: patient sedated or unresponsive Reason for block: post-op pain management/at surgeon's request Staffing Anesthesiologist: Ariadna Cervantes MD Performed by: anesthesiologist Preparation Sterility Preparation: hand hygiene performed prior to procedure, surgical cap used, mask used, sterile drape used during line insertion, skin prep agent completely dried prior to procedure Site Prep: Chloraprep Pre-Procedure Neuro Exam Location: RLE Sensory: intact Motor: intact Procedure Details Patient Position: supine Monitoring: Pulse OX, EKG and NIBP Block Type Lower Extremity: femoral Laterality: right Injection Technique: single-shot Ultrasound Guided: Yes Image in Chart: yes Local Infiltration: Yes Needle Needle Type: echogenic (Pajunk) Needle Gauge: 21 G Needle Length: 100 mm Assessment Injection assessment: negative aspiration, no paresthesia on injection, incremental injection and local visualized surrounding nerve on ultrasound Post-Procedure Neuro Exam Expected Regional Anesthesia: Yes Medications Administered ropivacaine (PF) 2 mg/mL (0.2 %) injection (NAROPIN) - peripheral nerve block 10 mL - 12/29/2022 11:49:00 AM ropivacaine (PF) 5 mg/mL (0.5 %) injection (NAROPIN) - peripheral nerve block 10 mL - 12/29/2022 11:49:00 AM dexamethasone sodium phosphate injection (DECADRON) - peripheral nerve block 5 mg - 12/29/2022 11:49:00 AM SIGNATURE: Ariadna Cervantes MD PATIENT NAME: Terry Smith DATE: December 29, 2022 TIME: 12:09 PM CSN: [id number] [facility] 12-21-2022 Note HNO ID: [id number] Author: Maurice Pope PT Service: ? Author Type: Physical Therapist Type: Progress Notes Filed: 12/21/2022 8:15 PM Note Text: Episode Visit Count: 3 Therapist That Will Accept/Oversee The Plan Of Care: Maurice Pope Start of Care Date: 12/16/22 Onset Date: 11/04/22 Plan of Care Certification Date: 12/16/22 Patient Identified by Name and Date of : Yes REHABILITATION AND SPORTS THERAPY PHYSICAL THERAPY DISCONTINUANCE OF CARE PLAN OF CARE UPDATE: Assessment: Terry Smith is discontinued from Physical Therapy services due to pre-op goals being met. He will return for post-op portion of ACL carepath 01/02/23 . Patient was seen for 3 visits from Start of Care Date: 12/16/22 to 12/21/2022 and treatment included: Therapeutic exercise, Gait training, and Patient/Family/Caregiver Education. Updated:12/21/22 Goals for Episode of Care: created on 12/16/22 through 06/17/23 Phase 1 to Phase 2 Criteria: Criterion for Progression: Complete 20 straight leg raises with no quadriceps lag. - MET Range of motion Full active knee extension (within 3 degrees) and Active Flexion to 110 degrees., - MET Full quadriceps activation: full, without visual inhibition. ,- Partially MET Normalized Gait. - Partially MET Discontinuation of Crutch/Immobilizer devices. , - MET Phase 2 to Phase 3 Criteria: Criterion for Progression: Range of motion: full, equal to contralateral., Stairs: 10-12 steps, ascent/descent in a reciprocal pattern with (6-8 height). , Double leg squat: 60-90 degree bend, equal weight bearing, proper mechanics. Demonstrates functional strength and control with performing daily activities., Phase 3 to Phase 4 Criteria: Criterion for Progression: Range of Motion: maintained full and equal to contralateral limb., Strength symmetry testin% symmetry using any of the following methods: Dynamometer testing., Motor control: 6 inch eccentric step-downs with heel tap, 20 reps, proper mechanics., STAR/YBT: 90% 3 directions with STAR, Hopping in place: double leg and single leg, no pain, proper mechanics Outcomes: IKDC greater than or equal to 7, ADL-RSI greater than or equal to 50-60 score., Phase 4 to Phase 5 Criteria: Criterion for Progression: Maximum vertical jump without pain or instability., 80% of contralateral on single hop tests., Normalized running., Y-balance - anterior reach: less than 4 cm asymmetry. , Strength: 85% symmetry. IKDC Question (Global Rating of Knee Function) score of 8 or greater. Phase 5 to Return to Sport Criteria: Criterion for Progression: Strength: Greater than or equal to 90% symmetry., Hop testin% symmetry with proper mechanics. , Pain free transition to activities and no functional complaints. , Confidence when running, cutting, jumping at full speed. IKDC Question (Global Rating of Knee Function) of > 9. Patient Goals: Play ultimate frisbee again SUBJECTIVE: Patient Reason for Visit: Pt reports that he has been working diligently on his quality of gait following gait training last session. He also reports faithful compliance wtih HEP. He even wonders if he did too much with the HEP. He reports that he was doing quad sets constantly. Overall pt reports being very pleased with the progress he has made so far pre-op. He feels that he can self manage with HEP from now until surgery 12/29/22. He denies any pain currently. He does report injurying his other knee(left) yesterday carrying a heavy laundry basket on the stairs. Pain: Pain Pain Level: 0 Pain Location: Knee - Right Description: (Pt denies any pain to start today.) Frequency: Intermittent Post Treatment Pain Post Treatment Pain Level: No Change Post Treatment Pain Location: Knee - Right PROMIS Scales Higher is Better 12/15/2022 Phys Func - Score 39 (moderate dysfunction) Phys Func - Percentile 14 % Self-Eff Symptom - Score 46 (Average) Self-Eff Symptom - Percentile 34 % T-scores: mean of general population = 50. 5 points is clinically meaningfully difference Percentiles provide an indication of how the patient's score ranks in relation to the general population. Higher percentile rankings indicate better function/quality of life. 50th percentile is the average of the general population and indicates half of respondents had a worse score. OBJECTIVE MEASURES WITH LEVEL OF FUNCTION: LE AROM R LE AROM: supine R Knee Extension: 4 Degrees R Knee Flexion: 138 Degrees LE Strength R Knee Extension Functional Strength (L3): 20 SLR without quad lag but fatigue is visible, especially with late reps. Gait Gait Observation: Pt can normalize gait with only current deficit being his slow cautious pattern. All other parameters of gait are normal. TREATMENT: Carepath: ACL ACL Phase: Prehab Therapeutic Exercise: 1: Upright bike, seat #10 resistance level 3 x6 minutes (pt provided an update on his condition and pre-op pl (more content not included)... [facility] 12-21-2022 History of Presen t illness Narrative Episode Visit Count: 3 Therapist That Will Accept/Oversee The Plan Of Care: Maurice Pope Start of Care Date: 12/16/22 Onset Date: 11/04/22 Plan of Care Certification Date: 12/16/22 Patient Identified by Name and Date of : Yes REHABILITATION AND SPORTS THERAPY PHYSICAL THERAPY DISCONTINUANCE OF CARE PLAN OF CARE UPDATE: Assessment: Terry Smith is discontinued from Physical Therapy services due to pre-op goals being met. He will return for post-op portion of ACL carepath 01/02/23 . Patient was seen for 3 visits from Start of Care Date: 12/16/22 to 12/21/2022 and treatment included: Therapeutic exercise, Gait training, and Patient/Family/Caregiver Education. Updated:12/21/22 Goals for Episode of Care: created on 12/16/22 through 06/17/23 Phase 1 to Phase 2 Criteria: Criterion for Progression: Complete 20 straight leg raises with no quadriceps lag. - MET Range of motion Full active knee extension (within 3 degrees) and Active Flexion to 110 degrees., - MET Full quadriceps activation: full, without visual inhibition. ,- Partially MET Normalized Gait. - Partially MET Discontinuation of Crutch/Immobilizer devices. , - MET Phase 2 to Phase 3 Criteria: Criterion for Progression: Range of motion: full, equal to contralateral., Stairs: 10-12 steps, ascent/descent in a reciprocal pattern with (6-8 height). , Double leg squat: 60-90 degree bend, equal weight bearing, proper mechanics. Demonstrates functional strength and control with performing daily activities., Phase 3 to Phase 4 Criteria: Criterion for Progression: Range of Motion: maintained full and equal to contralateral limb., Strength symmetry testin% symmetry using any of the following methods: Dynamometer testing., Motor control: 6 inch eccentric step-downs with heel tap, 20 reps, proper mechanics., STAR/YBT: 90% 3 directions with STAR, Hopping in place: double leg and single leg, no pain, proper mechanics Outcomes: IKDC greater than or equal to 7, ADL-RSI greater than or equal to 50-60 score., Phase 4 to Phase 5 Criteria: Criterion for Progression: Maximum vertical jump without pain or instability., 80% of contralateral on single hop tests., Normalized running., Y-balance - anterior reach: less than 4 cm asymmetry. , Strength: 85% symmetry. IKDC Question (Global Rating of Knee Function) score of 8 or greater. Phase 5 to Return to Sport Criteria: Criterion for Progression: Strength: Greater than or equal to 90% symmetry., Hop testin% symmetry with proper mechanics. , Pain free transition to activities and no functional complaints. , Confidence when running, cutting, jumping at full speed. IKDC Question (Global Rating of Knee Function) of > 9. Patient Goals: Play ultimate frisbee again SUBJECTIVE: Patient Reason for Visit: Pt reports that he has been working diligently on his quality of gait following gait training last session. He also reports faithful compliance wtih HEP. He even wonders if he did too much with the HEP. He reports that he was doing quad sets constantly. Overall pt reports being very pleased with the progress he has made so far pre-op. He feels that he can self manage with HEP from now until surgery 12/29/22. He denies any pain currently. He does report injurying his other knee(left) yesterday carrying a heavy laundry basket on the stairs. Pain: Pain Pain Level: 0 Pain Location: Knee - Right Description: (Pt denies any pain to start today.) Frequency: Intermittent Post Treatment Pain Post Treatment Pain Level: No Change Post Treatment Pain Location: Knee - Right PROMIS Scales Higher is Better 12/15/2022 Phys Func - Score 39 (moderate dysfunction) Phys Func - Percentile 14 % Self-Eff Symptom - Score 46 (Average) Self-Eff Symptom - Percentile 34 % T-scores: mean of general population = 50. 5 points is clinically meaningfully difference Percentiles provide an indication of how the patient's score ranks in relation to the general population. Higher percentile rankings indicate better function/quality of life. 50th percentile is the average of the general population and indicates half of respondents had a worse score. OBJECTIVE MEASURES WITH LEVEL OF FUNCTION: LE AROM R LE AROM: supine R Knee Extension: 4 Degrees R Knee Flexion: 138 Degrees LE Strength R Knee Extension Functional Strength (L3): 20 SLR without quad lag but fatigue is visible, especially with late reps. Gait Gait Observation: Pt can normalize gait with only current deficit being his slow cautious pattern. All other parameters of gait are normal. TREATMENT: Carepath: ACL ACL Phase: Prehab Therapeutic Exercise: 1: Upright bike, seat #10 resistance level 3 x6 minutes (pt provided an update on his condition and pre-op plan of care reviewed.) 2: heel slide w/3 sec hold 2x15 (R), w/green strap OP reviewed for HEP and continuation encouraged. 3: Quad set w/3 sec hold 2x15 (R) reviewed for HEP and continuation encouraged. 4: SAQ reviewed but removed from HEP secondary to pt report of pain with clicking and grinding 5: SLR flexion 2x15 (R) reviewed for HEP and continuation encouraged. 6: HEP thoroughly reviewed and all of patient's questions answered. He was encouraged to continue with all exercises he received at evaluation that do not cause pain. 7: The critical importance of gaining full knee extension early and full quad activation was emphasized. 8: the pre and post-op rehab process was reviewed with patient 9: seated LAQ added as a substitute for SAQ and LAQ was not painful. Skilled Intervention: Patient was educated in proper exercise technique and purpose for exercises. Reviewed and educated patient on additions/changes for home exercise program as above (*). Skilled judgment was provided in selection of appropriate interventions. Correct performance of therapeutic exercises was facilitated with verbal, visual, and tactile cuing. Patient education as noted. Gait Trainin: Gait correction done with simple review of previous education: improve heel to toe pattern and keep step lengths symmetrical. Pt questions about the post-op use of crutches were answered. Skilled Intervention: Facilitated proper gait cycle with the use of verbal and visual cues for correction of gait deviations identified in the objective section above. Self-[facility] Management: 1: Pt had many questions about the surgery, procedures before, during and after surgery. His post-op rehab plan was explained and all of his questions were answered to his satisfaction. A brief overview of the graft process was explained. Skilled Intervention: Reviewed patient specific diagnosis in relation to activities of daily living/home management. Billing Therapeutic Exercise Treatment Minutes: 15 Self-Care/Home Management Treatment Minutes: 15 Gait Training Treatment Minutes: 10 Total Treatment Time Minutes (timed/untimed): 40 Maurice Pope PT documented in this encounter [facility] 12-19-2022 Note HNO ID: [id number] Author: Maurice Pope PT Service: ? Author Type: Physical Therapist Type: Progress Notes Filed: 12/19/2022 6:23 PM Note Text: Episode Visit Count: 2 Therapist That Will Accept/Oversee The Plan Of Care: Maurice Pope Start of Care Date: 12/16/22 Onset Date: 11/04/22 Plan of Care Certification Date: 12/16/22 Patient Identified by Name and Date of : Yes REHABILITATION AND SPORTS THERAPY PHYSICAL THERAPY TREATMENT NOTE ASSESSMENT: Terry Tin Smith tolerated the session with decreased symptoms and no issues. He demonstrated improvements in ROM, quad activation,gait and exercise tolerance. The patient will continue to benefit from ongoing skilled physical therapy to progress toward set goals and to continue with post-operative protocol. Established pre-op plan of care is still appropriate and will continue until surgery 12/29/22 but a visit or 2 may be canceled if pre-op goals are fully met Current Frequency: 2x/week Duration: 3 weeks Total Number of Visits Planned: 6 (6 pre-op visits to prepar for surgery) Planned Treatment Interventions: Therapeutic exercise (79952), Neuromuscular re-education (71728), Manual therapy (48443), Therapeutic activities (31747), Gait Training (84628), Self-penitentiary management (19410), Patient/Family/Caregiver Education, Body Mechanics Training PLAN FOR NEXT VISIT: Continue with therex and HEP to maximize ROM, strength and normalize gait/stairs pre-op SUBJECTIVE: Patient Reason for Visit: Pt reports that he has been diligently following instructions received 12/16/22. He reports compliance with HEP 2x day and quad sets even more often. He reports that his most recent medical visits have significantly increased his awareness of his limitations, deficits and how to correct these. Pt denies any pain to start today. Pain: Pain Pain Level: 0 Pain Location: Knee - Right Description: (no pain to start) Frequency: Intermittent Post Treatment Pain Post Treatment Pain Level: No Change Post Treatment Pain Location: Knee - Right OBJECTIVE MEASURES WITH LEVEL OF FUNCTION: LE AROM R LE AROM: supine R Knee Extension: 3 Degrees (after stretching) R Knee Flexion: 140 Degrees (after stretching) LE Strength R Knee Extension Functional Strength (L3): minimal to no ext lag Gait Weight Bearing Status: WBAT Gait: Independent Gait Device: None Gait Deviations: Right Lower Extremity Gait Observation: pt gait is initially very guarded with lack of full knee extension on R and rigid R knee throughout gait cycle. Improved dramatically after gait training. Stairs: Previously pt was relying heavily on rails because he was fearful of R knee giving out with descending and he asked how he should be doing this. TREATMENT: Carepath: ACL ACL Phase: Prehab Therapeutic Exercise: 1: Upright bike, seat #10 resistance level 3 x6 minutes (pt provided an update on his condition and pre-op plan of care reviewed.) 2: heel slide w/3 sec hold x 15 (R), w/green strap OP reviewed for HEP and continuation encouraged. 3: Quad set w/3 sec hold x 15 (R) reviewed for HEP and continuation encouraged. 4: SAQ w/3 sec hold x 15 (R) reviewed for HEP and continuation encouraged. 5: SLR flexion x 15 (R) reviewed for HEP and continuation encouraged. 6: HEP thoroughly reviewed and all of patient's questions answered. He was encouraged to continue with all 6 exercises he received at evaluation 7: The critical importance of gaining full knee extension early and full quad activation was emphasized. 8: the pre and post-op rehab process was reviewed with patient Skilled Intervention: Patient was educated in proper exercise technique and purpose for exercises. Skilled judgment was provided in selection of appropriate interventions. Correct performance of therapeutic exercises was facilitated with verbal, visual, and tactile cuing. Patient education as noted. Gait Trainin: Deviations identified were explained and demonstrated to pt in detail. He was educated on how to correct these and this was demonstrated. He practiced this gait correction as therapist provided verbal cues. Mirror was used to provide visual feedback. Proper stair negotiation reviewed and instructed as pt practiced. Verbal cues provided and therapist demonstrated. He was encouraged to use rails for support but that he should be practicing normal gait and normal use of stairs to correct and prevent additional bad habits. Skilled Intervention: Facilitated proper gait cycle with the use of verbal and visual cues for correction of gait deviations identified in the objective section above. Education provided to patient regarding the proper sequence for stair negotiation. Billing Therapeutic Exercise Treatment Minutes: 20 Gait Training Treatment Minutes: 25 Total Treatment Time Minutes (timed/untimed): 45 Maurice Pope PT [facility] 12-19-2022 History of Presen t illness Narrative Episode Visit Count: 2 Therapist That Will Accept/Oversee The Plan Of Care: Maurice Pope Start of Care Date: 12/16/22 Onset Date: 11/04/22 Plan of Care Certification Date: 12/16/22 Patient Identified by Name and Date of : Yes REHABILITATION AND SPORTS THERAPY PHYSICAL THERAPY TREATMENT NOTE ASSESSMENT: Terry Smith tolerated the session with decreased symptoms and no issues. He demonstrated improvements in ROM, quad activation,gait and exercise tolerance. The patient will continue to benefit from ongoing skilled physical therapy to progress toward set goals and to continue with post-operative protocol. Established pre-op plan of care is still appropriate and will continue until surgery 12/29/22 but a visit or 2 may be canceled if pre-op goals are fully met Current Frequency: 2x/week Duration: 3 weeks Total Number of Visits Planned: 6 (6 pre-op visits to prepar for surgery) Planned Treatment Interventions: Therapeutic exercise (20010), Neuromuscular re-education (24447), Manual therapy (12686), Therapeutic activities (85303), Gait Training (74068), Self-penitentiary management (27282), Patient/Family/Caregiver Education, Body Mechanics Training PLAN FOR NEXT VISIT: Continue with therex and HEP to maximize ROM, strength and normalize gait/stairs pre-op SUBJECTIVE: Patient Reason for Visit: Pt reports that he has been diligently following instructions received 12/16/22. He reports compliance with HEP 2x day and quad sets even more often. He reports that his most recent medical visits have significantly increased his awareness of his limitations, deficits and how to correct these. Pt denies any pain to start today. Pain: Pain Pain Level: 0 Pain Location: Knee - Right Description: (no pain to start) Frequency: Intermittent Post Treatment Pain Post Treatment Pain Level: No Change Post Treatment Pain Location: Knee - Right OBJECTIVE MEASURES WITH LEVEL OF FUNCTION: LE AROM R LE AROM: supine R Knee Extension: 3 Degrees (after stretching) R Knee Flexion: 140 Degrees (after stretching) LE Strength R Knee Extension Functional Strength (L3): minimal to no ext lag Gait Weight Bearing Status: WBAT Gait: Independent Gait Device: None Gait Deviations: Right Lower Extremity Gait Observation: pt gait is initially very guarded with lack of full knee extension on R and rigid R knee throughout gait cycle. Improved dramatically after gait training. Stairs: Previously pt was relying heavily on rails because he was fearful of R knee giving out with descending and he asked how he should be doing this. TREATMENT: Care[facility]: ACL ACL Phase: Prehab Therapeutic Exercise: 1: Upright bike, seat #10 resistance level 3 x6 minutes (pt provided an update on his condition and pre-op plan of care reviewed.) 2: heel slide w/3 sec hold x 15 (R), w/green strap OP reviewed for HEP and continuation encouraged. 3: Quad set w/3 sec hold x 15 (R) reviewed for HEP and continuation encouraged. 4: SAQ w/3 sec hold x 15 (R) reviewed for HEP and continuation encouraged. 5: SLR flexion x 15 (R) reviewed for HEP and continuation encouraged. 6: HEP thoroughly reviewed and all of patient's questions answered. He was encouraged to continue with all 6 exercises he received at evaluation 7: The critical importance of gaining full knee extension early and full quad activation was emphasized. 8: the pre and post-op rehab process was reviewed with patient Skilled Intervention: Patient was educated in proper exercise technique and purpose for exercises. Skilled judgment was provided in selection of appropriate interventions. Correct performance of therapeutic exercises was facilitated with verbal, visual, and tactile cuing. Patient education as noted. Gait Trainin: Deviations identified were explained and demonstrated to pt in detail. He was educated on how to correct these and this was demonstrated. He practiced this gait correction as therapist provided verbal cues. Mirror was used to provide visual feedback. Proper stair negotiation reviewed and instructed as pt practiced. Verbal cues provided and therapist demonstrated. He was encouraged to use rails for support but that he should be practicing normal gait and normal use of stairs to correct and prevent additional bad habits. Skilled Intervention: Facilitated proper gait cycle with the use of verbal and visual cues for correction of gait deviations identified in the objective section above. Education provided to patient regarding the proper sequence for stair negotiation. Billing Therapeutic Exercise Treatment Minutes: 20 Gait Training Treatment Minutes: 25 Total Treatment Time Minutes (timed/untimed): 45 Maurice Pope PT documented in this encounter [facility] 12-16-2022 Note HNO ID: [id number] Author: Vinod Christiansen PT Service: ? Author Type: Physical Therapist Type: Progress Notes Filed: 12/16/2022 12:26 PM Note Text: Episode Visit Count: 1 Therapist That Will Accept/Oversee The Plan Of Care: Maurice Pope Start of Care Date: 12/16/22 Onset Date: 11/04/22 Plan of Care Certification Date: 12/16/22 Patient Identified by Name and Date of : Yes REHABILITATION AND SPORTS THERAPY PHYSICAL THERAPY EVALUATION PLAN OF CARE: Assessment: Terry Smith presents with diagnosis of Right knee pain stemming from MRI confirmed ACL tear, and scheduled ACLR on 12/29/22, that interferes with standing, walking, stair negotiation, heavy exertion, physical activities, lifting, recreational activities, running, jumping, squatting, weight bearing . He presents with impairments in ADL's, balance, gait, independence in exercise, joint mobility, overall function, posture, range of motion, and strength. PROMIS? (Patient-Reported Outcomes Measurement Information System) scores were reviewed and physical function domain identified as a rehabilitation concern. Prognosis for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 04/13/2016 Vasomotor rhinitis 03/20/2013 2 Atypical migraine 12/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 09/09/2021 documented as of this encounter (statuses as of 04/07/2023) [facility] History of Past illness Narrative* Problem Noted Date Diagnosed Date Resolved Date Testicular pain, left 09/26/20162021 Cervical disc disorder with radiculopathy 08/11/2015 09/09/2021 Left cervical radiculopathy 03/26/2015 04/13/2016 Optic neuritis 12/18/2013 04/13/2016 Vasomotor rhinitis 03/20/2013 2 Atypical migraine 12/20/2010 09/09/2021 documented as of this encounter (statuses as of 04/14/2023) [facility] History of Past illness Narrative* Problem Noted Date Diagnosed Date Resolved Date Testicular pain, left 09/26/20162021 Cervical disc disorder with radiculopathy 08/11/2015 09/09/2021 Left cervical radiculopathy 03/26/2015 04/13/2016 Optic neuritis 12/18/2013 04/13/2016 Vasomotor rhinitis 03/20/2013 2 Atypical migraine 12/20/2010 09/09/2021 documented as of this encounter (statuses as of 04/28/2023) [facility] History of Past illness Narrative* Problem Noted Date Diagnosed Date Resolved Date Testicular pain, left 09/26/20162021 Cervical disc disorder with radiculopathy 08/11/2015 09/09/2021 Left cervical radiculopathy 03/26/2015 04/13/2016 Optic neuritis 12/18/2013 04/13/2016 Vasomotor rhinitis 03/20/2013 2 Atypical migraine 12/20/2010 09/09/2021 documented as of this encounter (statuses as of 05/05/2023) [facility] History of Past illness Narrative* Problem Noted Date Diagnosed Date Resolved Date Testicular pain, left 09/26/20162021 Cervical disc disorder with radiculopathy 08/11/2015 09/09/2021 Left cervical radiculopathy 03/26/2015 04/13/2016 Optic neuritis 12/18/2013 04/13/2016 Vasomotor rhinitis 03/20/2013 2 Atypical migraine 12/20/2010 09/09/2021 documented as of this encounter (statuses as of 05/13/2023) [facility] Pain of right great toe- Primary [facility] Diagnosis Pain and swelling of right knee- Primary [facility] Diagnosis Rupture of anterior cruciate ligament of right knee, initial encounter- Primary Rupture of anterior cruciate ligament of right knee, initial encounter [facility] Diagnosis Acute pain of right knee- Primary Rupture of anterior cruciate ligament of right knee, initial encounter Rupture of anterior cruciate ligament of right knee, initial encounter [facility] Diagnosis Acute pain of right knee- Primary Rupture of anterior cruciate ligament of right knee, initial encounter [facility] Diagnosis Acute pain of right knee- Primary Rupture of anterior cruciate ligament of right knee, initial encounter [facility] Diagnosis S/P ACL reconstruction- Primary Other postprocedural status S/P arthroscopic partial lateral meniscectomy Other postprocedural status [facility] Diagnosis Acute pain of right knee- Primary Rupture of anterior cruciate ligament of right knee, initial encounter [facility] Diagnosis S/P ACL reconstruction- Primary Other postprocedural status S/P arthroscopic partial lateral meniscectomy Other postprocedural status [facility] Diagnosis Acute pain of right knee- Primary Rupture of anterior cruciate ligament of right knee, [facility] Acute pain of right knee- Primary Rupture of anterior cruciate ligament of right knee, initial encounter [facility] Diagnosis Acute pain of right knee- Primary Rupture of anterior cruciate ligament of right knee, initial encounter [facility] Diagnosis Acute pain of right knee- Primary Rupture of anterior cruciate ligament of right knee, initial encounter [facility] Diagnosis Acute pain of right knee- Primary Rupture of anterior cruciate ligament of right knee, initial encounter [facility] Acute pain of right knee- Primary Rupture of anterior cruciate ligament of right knee, initial encounter [facility] Diagnosis Acute pain of right knee- Primary Rupture of anterior cruciate ligament of right knee, initial encounter [facility] Diagnosis S/P ACL reconstruction- Primary Other postprocedural status S/P arthroscopic partial lateral meniscectomy Other postprocedural status [facility] Diagnosis Acute pain of right knee- Primary Rupture of anterior cruciate ligament of right knee, initial encounter [facility] Diagnosis Acute pain of right knee- Primary Rupture of anterior cruciate ligament of right knee, initial encounter [facility] Diagnosis Acute pain of right knee- Primary Rupture of anterior cruciate ligament of right knee, initial encounter [facility] Diagnosis Acute pain of right knee- Primary Rupture of anterior cruciate ligament of right knee, initial encounter [facility] Diagnosis S/P ACL reconstruction- Primary Other postprocedural status [facility] Diagnosis Acute pain of right knee- Primary Rupture of anterior cruciate ligament of right knee, initial encounter [facility] Diagnosis S/P ACL reconstruction- Primary Other postprocedural status S/P arthroscopic partial lateral meniscectomy Other postprocedural status [facility] Diagnosis ADHD (attention deficit hyperactivity disorder), combined type- Primary Attention deficit disorder with hyperactivity Psoriasis Other psoriasis Need for influenza vaccination Need for prophylactic vaccination and inoculation against influenza 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 [facility] Diagnosis Rupture of anterior cruciate ligament of right knee, initial encounter- Primary [facility] Diagnosis Rupture of anterior cruciate ligament of right knee, initial encounter- Primary [facility]* Diagnosis ADHD (attention deficit hyperactivity disorder), combined type Attention deficit disorder with hyperactivity [facility] Diagnosis Psoriasis- Primary Other psoriasis Sebopsoriasis Contact dermatitis and other eczema, due to unspecified cause [facility] Diagnosis Pain in toe of left foot- Primary Pain in limb [facility] Diagnosis Acquired hallux valgus of left foot- Primary Hallux valgus (acquired) Neuroma Other benign neoplasm of connective and other soft tissue of unspecified site [facility] Diagnosis Rupture of anterior cruciate ligament of right knee, subsequent encounter- Primary documented in this encounter [facility] for referral (narrative)* Diagnostic Procedure Only (Routine) - Pending Review Specialty Diagnoses / Procedures Referred By Sana hernadez Referred To Contact XR IMAGING Diagnoses Pain and swelling of right knee Procedures XR KNEE GENERAL 4V AP BOTH/PA BOTH/LAT/MERC RIGHT RADIOLOGIC EXAM KNEE COMPLETE 4/MORE VIEWS Guru Ahn V, DO [address] [place] [address] Xr Imaging Referral ID Status Reason Start Date Expiration Date Visits Requested Visits Authorized [id number] Pending Review Auto-Generat ed Referral 11/18/2022 12/18/2023 1 1 [facility] for referral (narrative)* Diagnostic Procedure Only (Routine) - Authorized Specialty Diagnoses / Procedures Referred By Contac t Referred To Contact XR IMAGING Diagnoses Rupture of anterior cruciate ligament of right knee, initial encounter Procedures XR KNEE LIMITED 2V AP/LAT RIGHT RADIOLOGIC EXAMINATION KNEE 1/2 VIEWS Dian Alba PA-C [address] [facility] [place] [address] Xr Imaging Referral ID Status Reason Start Date Expiration Date Visits Requested Visits Authorized [id number] Authorized Auto-Generat ed Referral 12/14/2022 01/13/2024 1 1 * Physical Therapy (Routine) - Closed Specialty Diagnoses / Procedures Referred By Contact Referred To Contact [facility] Diagnoses Rupture of anterior cruciate ligament of right knee, initial encounter Procedures CONSULT TO PHYSICAL THERAPY PHYSICAL THERAPY EVALUATION HIGH COMPLEX 45 MINS Dian Alba PA-C [address] [place] [address] [facility] [address] [address] [place] [address] Referral ID Status Reason Start Date Expiration Date V isits Requested Visits Authorized [id number] Closed Auto-Generate d Referral 12/14/2022 12/14/2023 0 0 [facility] Diagnostic Procedure Only (Routine) - Pending Review Specialty Diagnoses / Procedures Referred By Sana hernadez Referred To Contact XR IMAGING Diagnoses Pain in toe of left foot Procedures XR FOOT GENERAL 3V AP/LAT/OBL LEFT RADEX FOOT COMPLETE MINIMUM 3 VIEWS Dian Velasquez [address] [place] [address] [place] [address] Referral ID Status Reason Start Date Expiration Date Visits Requested Visits Authorized [id number] Pending Review Auto-Generat ed Referral 3 08/08/[address] [facility] Reason for Referral Specialty Diagnoses / Procedures Referred By Contac t Referred To Contact [facility] Diagnoses Acute pain of right knee Procedures PT REHAB FOLLOW UP ORDER THERAPEUTIC EXERCISES RE, EA 15 MIN. Pt [facility] [address] [place] [address] [facility] [address] [place] [address] Referral ID Status Reason Start Date Expiration Date Visits Requested Visits Authorized [id number] Pending Review PCP Requested Referral Auto-Generate d Referral 12/16/2022 03/16/2023 1 1 Specialty Diagnoses / Procedures Referred By Contac t Referred To Contact [facility] Diagnoses S/P ACL reconstruction S/P arthroscopic partial lateral meniscectomy Procedures CONSULT TO PHYSICAL THERAPY PHYSICAL THERAPY EVALUATION HIGH COMPLEX 45 MINS Dian Alba PA-C [address] [facility] [place] [address] [facility] [address] [address] Referral ID Status Reason Start Date Expiration Date Visits Requested Visits Authorized [id number] Pending Review Auto-Generat ed Referral 12/30/2022 12/30/2023 1 1 Specialty Diagnoses / Procedures Referred By Contac t Referred To Contact [facility] Diagnoses Acute pain of right knee Procedures PT REHAB FOLLOW UP ORDER THERAPEUTIC EXERCISES RE, EA 15 MIN. Pt [facility] [address] [place] [address] [facility] [address] [address] Referral ID Status Reason Start Date Expiration Date Visits Requested Visits Authorized [id number] Pending Review PCP Requested Referral Auto-Generate d Referral 01/02/2023 04/02/2023 1 1 Specialty Diagnoses / Procedures Referred By Miniac t Referred To Contact [facility] Diagnoses Acute pain of right knee Rupture of anterior cruciate ligament of right knee, initial encounter Procedures PT REHAB FOLLOW UP ORDER THERAPEUTIC EXERCISES RE, EA 15 MIN. Pt [facility] [address] [place] [address] [address] Referral ID Status Reason Start Date Expiration Date Visits Requested Visits Authorized [id number] Pending Review PCP Requested Referral Auto-Generate d Referral 02/23/2023 05/24/2023 1 1 Summary Purpose Family History No Family History Records FoundNo Family History Records Found Advance Directives No Advanced Directives Records FoundNo Advanced Directives Records Found Additional Source Comments Source Comments (unrecognize d section and content) In the event this informatio n is protected by the Federal Confidentiality of Alcohol and Drug Abuse Patient Records regulations: The Federal rules restrict any use of the information to criminally investigate or prosecute any alcohol or drug abuse patient.[facility] the event this information is protected by the Federal Confidentiality of Alcohol and Drug Abuse Patient Records regulations: The Federal rules restrict any use of the information to criminally investigate or prosecute any alcohol or drug abuse patient.[facility] the event this information is protected by the Federal Confidentiality of Alcohol and Drug Abuse Patient Records regulations: The Federal rules restrict any use of the information to criminally investigate or prosecute any alcohol or drug abuse patient.[facility] the event this information is protected by the Federal Confidentiality of Alcohol and Drug Abuse Patient Records regulations: The Federal rules restrict any use of the information to criminally investigate or prosecute any alcohol or drug abuse patient.[facility] the event this information is protected by the Federal Confidentiality of Alcohol and Drug Abuse Patient Records regulations: The Federal rules restrict any use of the information to criminally investigate or prosecute any alcohol or drug abuse patient.[facility] the event this information is protected by the Federal Confidentiality of Alcohol and Drug Abuse Patient Records regulations: The Federal rules restrict any use of the information to criminally investigate or prosecute any alcohol or drug abuse patient.[facility] the event this information is protected by the Federal Confidentiality of Alcohol and Drug Abuse Patient Records regulations: The Federal rules restrict any use of the information to criminally investigate or prosecute any alcohol or drug abuse patient.[facility] the event this information is protected by the Federal Confidentiality of Alcohol and Drug Abuse Patient Records regulations: The Federal rules restrict any use of the information to criminally investigate or prosecute any alcohol or drug abuse patient.[facility] the event this information is protected by the Federal Confidentiality of Alcohol and Drug Abuse Patient Records regulations: The Federal rules restrict any use of the information to criminally investigate or prosecute any alcohol or drug abuse patient.[facility] the event this information is protected by the Federal Confidentiality of Alcohol and Drug Abuse Patient Records regulations: The Federal rules restrict any use of the information to criminally investigate or prosecute any alcohol or drug abuse patient.[facility] the event this information is protected by the Federal Confidentiality of Alcohol and Drug Abuse Patient Records regulations: The Federal rules restrict any use of the information to criminally investigate or prosecute any alcohol or drug abuse patient.[facility] the event this information is protected by the Federal Confidentiality of Alcohol and Drug Abuse Patient Records regulations: The Federal rules restrict any use of the information to criminally investigate or prosecute any alcohol or drug abuse patient.[facility] the event this information is protected by the Federal Confidentiality of Alcohol and Drug Abuse Patient Records regulations: The Federal rules restrict any use of the information to criminally investigate or prosecute any alcohol or drug abuse patient.[facility] the event this information is protected by the Federal Confidentiality of Alcohol and Drug Abuse Patient Records regulations: The Federal rules restrict any use of the information to criminally investigate or prosecute any alcohol or drug abuse patient.[facility] the event this information is protected by the Federal Confidentiality of Alcohol and Drug Abuse Patient Records regulations: The Federal rules restrict any use of the information to criminally investigate or prosecute any alcohol or drug abuse patient.[facility] WestIn the event this information is protected by the Federal Confidentiality of Alcohol and Drug Abuse Patient Records regulations: The Federal rules restrict any use of the information to criminally investigate or prosecute any alcohol or drug abuse patient.[facility] WestIn the event this information is protected by the Federal Confidentiality of Alcohol and Drug Abuse Patient Records regulations: The Federal rules restrict any use of the information to criminally investigate or prosecute any alcohol or drug abuse patient.[facility] WestIn the event this information is protected by the Federal Confidentiality of Alcohol and Drug Abuse Patient Records regulations: The Federal rules restrict any use of the information to criminally investigate or prosecute any alcohol or drug abuse patient.[facility] WestIn the event this information is protected by the Federal Confidentiality of Alcohol and Drug Abuse Patient Records regulations: The Federal rules restrict any use of the information to criminally investigate or prosecute any alcohol or drug abuse patient.[facility] WestIn the event this information is protected by the Federal Confidentiality of Alcohol and Drug Abuse Patient Records regulations: The Federal rules restrict any use of the information to criminally investigate or prosecute any alcohol or drug abuse patient.[facility] WestIn the event this information is protected by the Federal Confidentiality of Alcohol and Drug Abuse Patient Records regulations: The Federal rules restrict any use of the information to criminally investigate or prosecute any alcohol or drug abuse patient.[facility] WestIn the event this information is protected by the Federal Confidentiality of Alcohol and Drug Abuse Patient Records regulations: The Federal rules restrict any use of the information to criminally investigate or prosecute any alcohol or drug abuse patient.[facility] WestIn the event this information is protected by the Federal Confidentiality of Alcohol and Drug Abuse Patient Records regulations: The Federal rules restrict any use of the information to criminally investigate or prosecute any alcohol or drug abuse patient.[facility] WestIn the event this information is protected by the Federal Confidentiality of Alcohol and Drug Abuse Patient Records regulations: The Federal rules restrict any use of the information to criminally investigate or prosecute any alcohol or drug abuse patient.[facility] WestIn the event this information is protected by the Federal Confidentiality of Alcohol and Drug Abuse Patient Records regulations: The Federal rules restrict any use of the information to criminally investigate or prosecute any alcohol or drug abuse patient.[facility] WestIn the event this information is protected by the Federal Confidentiality of Alcohol and Drug Abuse Patient Records regulations: The Federal rules restrict any use of the information to criminally investigate or prosecute any alcohol or drug abuse patient.[facility] WestIn the event this information is protected by the Federal Confidentiality of Alcohol and Drug Abuse Patient Records regulations: The Federal rules restrict any use of the information to criminally investigate or prosecute any alcohol or drug abuse patient.[facility] WestIn the event this information is protected by the Federal Confidentiality of Alcohol and Drug Abuse Patient Records regulations: The Federal rules restrict any use of the information to criminally investigate or prosecute any alcohol or drug abuse patient.[facility] WestIn the event this information is protected by the Federal Confidentiality of Alcohol and Drug Abuse Patient Records regulations: The Federal rules restrict any use of the information to criminally investigate or prosecute any alcohol or drug abuse patient.[facility] WestIn the event this information is protected by the Federal Confidentiality of Alcohol and Drug Abuse Patient Records regulations: The Federal rules restrict any use of the information to criminally investigate or prosecute any alcohol or drug abuse patient.[facility] WestIn the event this information is protected by the Federal Confidentiality of Alcohol and Drug Abuse Patient Records regulations: The Federal rules restrict any use of the information to criminally investigate or prosecute any alcohol or drug abuse patient.[facility] WestIn the event this information is protected by the Federal Confidentiality of Alcohol and Drug Abuse Patient Records regulations: The Federal rules restrict any use of the information to criminally investigate or prosecute any alcohol or drug abuse patient.[facility] WestIn the event this information is protected by the Federal Confidentiality of Alcohol and Drug Abuse Patient Records regulations: The Federal rules restrict any use of the information to criminally investigate or prosecute any alcohol or drug abuse patient.[facility] WestIn the event this information is protected by the Federal Confidentiality of Alcohol and Drug Abuse Patient Records regulations: The Federal rules restrict any use of the information to criminally investigate or prosecute any alcohol or drug abuse patient.[facility] WestIn the event this information is protected by the Federal Confidentiality of Alcohol and Drug Abuse Patient Records regulations: The Federal rules restrict any use of the information to criminally investigate or prosecute any alcohol or drug abuse patient.[facility] WestIn the event this information is protected by the Federal Confidentiality of Alcohol and Drug Abuse Patient Records regulations: The Federal rules restrict any use of the information to criminally investigate or prosecute any alcohol or drug abuse patient.[facility] WestIn the event this information is protected by the Federal Confidentiality of Alcohol and Drug Abuse Patient Records regulations: The Federal rules restrict any use of the information to criminally investigate or prosecute any alcohol or drug abuse patient.[facility] WestIn the event this information is protected by the Federal Confidentiality of Alcohol and Drug Abuse Patient Records regulations: The Federal rules restrict any use of the information to criminally investigate or prosecute any alcohol or drug abuse patient.[facility] WestIn the event this information is protected by the Federal Confidentiality of Alcohol and Drug Abuse Patient Records regulations: The Federal rules restrict any use of the information to criminally investigate or prosecute any alcohol or drug abuse patient.[facility]In the event this information is protected by the Federal Confidentiality of Alcohol and Drug Abuse Patient Records regulations: The Federal rules restrict any use of the information to criminally investigate or prosecute any alcohol or drug abuse patient.[facility] WestIn the event this information is protected by the Federal Confidentiality of Alcohol and Drug Abuse Patient Records regulations: The Federal rules restrict any use of the information to criminally investigate or prosecute any alcohol or drug abuse patient.[facility] WestIn the event this information is protected by the Federal Confidentiality of Alcohol and Drug Abuse Patient Records regulations: The Federal rules restrict any use of the information to criminally investigate or prosecute any alcohol or drug abuse patient.[facility] WestIn the event this information is protected by the Federal Confidentiality of Alcohol and Drug Abuse Patient Records regulations: The Federal rules restrict any use of the information to criminally investigate or prosecute any alcohol or drug abuse patient.[facility] WestIn the event this information is protected by the Federal Confidentiality of Alcohol and Drug Abuse Patient Records regulations: The Federal rules restrict any use of the information to criminally investigate or prosecute any alcohol or drug abuse patient.[facility] WestIn the event this information is protected by the Federal Confidentiality of Alcohol and Drug Abuse Patient Records regulations: The Federal rules restrict any use of the information to criminally investigate or prosecute any alcohol or drug abuse patient.[facility] WestIn the event this information is protected by the Federal Confidentiality of Alcohol and Drug Abuse Patient Records regulations: The Federal rules restrict any use of the information to criminally investigate or prosecute any alcohol or drug abuse patient.[facility]In the event this information is protected by the Federal Confidentiality of Alcohol and Drug Abuse Patient Records regulations: The Federal rules restrict any use of the information to criminally investigate or prosecute any alcohol or drug abuse patient.[facility] WestIn the event this information is protected by the Federal Confidentiality of Alcohol and Drug Abuse Patient Records regulations: The Federal rules restrict any use of the information to criminally investigate or prosecute any alcohol or drug abuse patient.[facility] WestIn the event this information is protected by the Federal Confidentiality of Alcohol and Drug Abuse Patient Records regulations: The Federal rules restrict any use of the information to criminally investigate or prosecute any alcohol or drug abuse patient.[facility] WestIn the event this information is protected by the Federal Confidentiality of Alcohol and Drug Abuse Patient Records regulations: The Federal rules restrict any use of the information to criminally investigate or prosecute any alcohol or drug abuse patient.[facility] WestIn the event this information is protected by the Federal Confidentiality of Alcohol and Drug Abuse Patient Records regulations: The Federal rules restrict any use of the information to criminally investigate or prosecute any alcohol or drug abuse patient.[facility] Reason for Visit (unrecogniz ed section and content) Specialty Diagnoses / Procedures Referred By Contact Referred To Contact [facility] Diagnoses Rupture of anterior cruciate ligament of right knee, initial encounter Procedures CONSULT TO PHYSICAL THERAPY PHYSICAL THERAPY EVALUATION HIGH COMPLEX 45 MINS Jim Reed MD [address] [place] [id number] [facility] [address] [address] Referral ID Status Reason Start Date Expiration Date Visits Requested Visits Authorized [id number] Authorized Auto-Generat ed Referral 08/21/2022 08/20/2023 40 40 Reason Comments Physical Therapy Reason Comments PT Progress Note Reason Comments PT Progress Note Physical Therapy Specialty Diagnoses / Procedures Referred By Contact Referred To Contact [facility] Diagnoses Rupture of anterior cruciate ligament of right knee, initial encounter Procedures CONSULT TO PHYSICAL THERAPY PHYSICAL THERAPY EVALUATION HIGH COMPLEX 45 MINS Jim Reed MD [address] [place] [address] [facility] [address] [address] Reason Comments PT Progress Note Physical Therapy Reason Comments Physical Therapy PT Discharge Reason Comments Toe Pain (Big) Reason Comments Acute Visit stubbed right big to e and is now draining fluid x 1 week Reason Comments Patient Update Reason Comments Care Coordination DOS discussion Reason Comments PT Eval Reason Comments Post Op Reason Comments Information Patient Update Reason Comments Derm Problem 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 Reason Comments Patient Question Response to Mychart Reason Comments Established Patient Post Op Knee Pain Reason Comments Established Patient Post Op Reason Comments Insurance Authorization MRI Reason Onset Date Comments ear redness ADHD - Combined Immunizations 05/19/2023 Flu vaccination Reason Comments 4 week follow-up Reason Comments Psoriasis Reason Comments New Pain Care Teams (unrecognized sec tion and content) Ranch Helper Relationship Specialty Start Date End Date Doug Peres MD [address] [facility] [place] [address] PCP - General Internal Medicine 11/21/22 Ranch Helper Relationship Specialty Start Date End Date Doug Peres MD [address] [facility] [place] [address] PCP - General Internal Medicine 11/21/22 Ranch Helper Relationship Specialty Start Date End Date Doug Peres MD [facility] [place] [address] PCP - General Internal Medicine 11/21/22 Ranch Helper Relationship Specialty Start Date End Date Doug Peres MD [facility] [place] [address] PCP - General Internal Medicine 11/21/22 Ranch Helper Relationship Specialty Start Date End Date Doug Peres MD [facility] [place] [address] PCP - General Internal Medicine 11/21/22 Ranch Helper Relationship Specialty Start Date End Date Doug Peres MD [address] [place] [address] PCP - General Internal Medicine 11/21/22 Ranch Helper Relationship Specialty Start Date End Date Doug Peres MD [facility] [place] [address] PCP - General Internal Medicine 11/21/22 Ranch Helper Relationship Specialty Start Date End Date Doug Peres MD [facility] [place] [address] PCP - General Internal Medicine 11/21/22 Ranch Helper Relationship Specialty Start Date End Date Doug Peres MD [address] [facility] [place] [address] PCP - General Internal Medicine 11/21/22 Ranch Helper Relationship Specialty Start Date End Date Doug Peres MD [address] [facility] [place] [address] PCP - General Internal Medicine 11/21/22 Ranch Helper Relationship Specialty Start Date End Date Doug Peres MD [address] [facility] [place] [address] PCP - General Internal Medicine 11/21/22 Ranch Helper Relationship Specialty Start Date End Date Doug Peres MD [address] [facility] [place] [address] PCP - General Internal Medicine 11/21/22 Ranch Helper Relationship Specialty Start Date End Date Doug Peres MD [address] [facility] [place] [address] PCP - General Internal Medicine 11/21/22 Ranch Helper Relationship Specialty Start Date End Date Doug Perse MD [address] [facility] [place] [address] PCP - General Internal Medicine 11/21/22 Ranch Helper Relationship Specialty Start Date End Date Doug Peres MD [address] [facility] [place] [address] PCP - General Internal Medicine 11/21/22 Ranch Helper Relationship Specialty Start Date End Date Doug Peres MD [address] [facility] [place] [address] PCP - General Internal Medicine 11/21/22 Ranch Helper Relationship Specialty Start Date End Date Doug Peres MD [address] [facility] [place] [address] PCP - General Internal Medicine 11/21/22 Ranch Helper Relationship Specialty Start Date End Date Doug Peres MD [address] [facility] [place] [address] PCP - General Internal Medicine 11/21/22 Ranch Helper Relationship Specialty Start Date End Date Doug Peres MD [address] [facility] [place] [address] PCP - General Internal Medicine 11/21/22 Ranch Helper Relationship Specialty Start Date End Date Doug Peres MD [address] [place] [address] PCP - General Internal Medicine 11/21/22 Ranch Helper Relationship Specialty Start Date End Date Doug Peres MD [address] [facility] [place] [address] PCP - General Internal Medicine 11/21/22 Ranch Helper Relationship Specialty Start Date End Date Doug Peres MD [address] [facility] [place] [address] PCP - General Internal Medicine 11/21/22 Ranch Helper Relationship Specialty Start Date End Date Doug Peres MD [address] [facility] [place] [address] PCP - General Internal Medicine 11/21/22 Ranch Helper Relationship Specialty Start Date End Date Doug Peres MD [address] [place] [address] PCP - General Internal Medicine 11/21/22 Ranch Helper Relationship Specialty Start Date End Date Doug Peres MD [address] [facility] [address] PCP - General Internal Medicine 11/21/22 Ranch Helper Relationship Specialty Start Date End Date Doug Peres MD [address] [place] [address] PCP - General Internal Medicine 11/21/22 (unrecognized sect ion and content) No Status Records FoundNo Status Records Found INFORMATION SOURCE (unrecogn ized section and content) DATE CREATED AUTHOR AUTHOR'S ORGANIZ ATION 08/12/2023 [facility] FOR RECORDS PERTAINING TO PATIENTS WHO ARE OR HAVE BEEN ENROLLED IN A CHEMICAL DEPENDENCY/SUBSTANCEABUSE PROGRAM, SOME INFORMATION MAY BE OMITTED. This clinical summary was aggregated from multiple sources. Caution should be exercised in using it in the provision of clinical care. This summary normalizes information from multiple sources, and as a consequence, information in this document may materially change the coding, format and clinical context of patient data. In addition, data may be omitted in some cases. CLINICAL DECISIONS SHOULD BE BASED ON THE PRIMARY CLINICAL RECORDS. [employer] [facility]. provides no warranty or guarantee of the accuracy or completeness of information in this document.
== END 2023-09-30 22:22 | disposition home or self-care (01) ==
LOC: ED 22:21
PROVIDERS: Emergency Provider Emergency Medicine; PCP Internal Medicine; Visit Provider Emergency Medicine
DX: R00.0 Tachycardia, unspecified (principal); F90.9 Attention-deficit hyperactivity disorder, unspecified type; Z79.899 Other long term (current) drug therapy; Z87.891 Personal history of nicotine dependence
CPT/HCPCS: 93005; 99282